=== PATIENT | female | born 1940 | race Caucasian/White ===

== ENCOUNTER 2016-11-12 22:16 | Emergency (ER) | payer MEDICARE, OTHER ==
[~2016-11-12] VITALS: Ht 160 cm; Wt 91.6 kg
[~2016-11-12 22:16] MED LIST: ALPHAGAN P5 ML OPTH; AMLODIPINE BESYL5 MG PO; CATAPRES-TTS 31 EACH TOP; DEXILANT60 MG PO; FUROSEMIDE40 MG PO; GABAPENTIN100 MG PO; K-TAB ER20 MEQ PO; LOTENSIN40 MG PO; METFORMIN HCL500 MG PO; METOPROLOL TAR100 MG PO; MIRAPEX1 MG PO; NORCO 5-325 TA1 EACH PO; PANTOPRAZOLE SO40 MG PO; PROVENTIL HFA6.7 GM INH; SPIRIVA18 MCG INH; VITAMIN D5000 UNIT PO; XOPENEX HFA15 GM INH
--- NOTE | 2016-11-13 19:12 | EKG ---
[facility] [address] [place], [place] [address] Signed Normal sinus rhythm Normal ECG When compared with ECG of 16-SEP-2016 19:19, No significant change was found Confirmed by CLARI WOOTEN MD ([id number]) on 11/13/2016 7:12:27 PM Electronically Signed By: CLARI WOOTEN MD 11/13/161911 PATIENT NAME: DAVID GUTIERREZ Electrocardiogram DATE OF : 42 PHYSICIAN: CLARI WOOTEN MD REPORT #: [id number] REPORT IS CONFIDENTIAL AND NOT TO BE RELEASED WITHOUT AUTHORIZATION
== END 2016-11-13 00:46 | disposition home or self-care (01) ==
LOC: ED 22:16
DX: R06.00 Dyspnea, unspecified (principal); R51 Headache; I10 Essential (primary) hypertension; J44.9 Chronic obstructive pulmonary disease, unspecified; E11.9 Type 2 diabetes mellitus without complications; Z85.3 Personal history of malignant neoplasm of breast; Z87.891 Personal history of nicotine dependence; Z90.13 Acquired absence of bilateral breasts and nipples; Z90.710 Acquired absence of both cervix and uterus; Z90.49 Acquired absence of other specified parts of digestive tract; Z88.8 Allergy status to other drugs, medicaments and biological substances; Z79.899 Other long term (current) drug therapy; Z79.84 Long term (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 of oral hypoglycemic drugs
CPT/HCPCS: 70450; 71020; 80053; 82550; 82553; 83874; 83880; 84484; 85025; 93005; 93010; 99284

== ENCOUNTER 2018-07-06 01:47 | Emergency (ER) | payer MEDICARE, OTHER ==
[~2018-07-06] VITALS: Ht 160 cm; Wt 91.6 kg
--- OUTSIDE RECORDS SUMMARY | ~2018-07-06 | XMS | Encounter Summary ---
Demographics + + + | Address | [address] | | | [place] [address] | + + + | Home Phone | | + + + | Preferred Language | Unknown | + + + | Marital Status | | + + + | Christianity Affiliation | Unknown | + + + | Race | Unknown | + + + | Ethnic Group | Unknown | + + + Author + + + | Author | [facility] | | | and [place] | + + + | Organization | [facility] | | | and [place] | + + + | Address | Unknown | + + + | Phone | Unavailable | + + + Support + + +---------+ + | Name | Relationship | Address | Phone | + + +---------+ + | Adriane Kuhn | MYCHAL | Unknown | | + + +---------+ + Care Team Providers + +------+ + | Care Photovoltaic Panel Installer Name | Role | Phone | + +------+ + | Yuri Miner MD | PCP | | + +------+ + Reason for Visit + + + | Reason | Comments | + + + | Follow-up | Urge Incontinence and OAB | + + + Encounter Details +--------+---------+ + + + | Date | Type | Department | Care Team | Description | +--------+---------+ + + + | 05/01/ | Office | [facility] | Arnol Koroma | OAB (overactive | | 2019 | Visit | [address] | MD Bryant [address] | bladder) (Primary | | | | [place], [place] | [place], [place] | Dx); Urgency of | | | | [address] | [address] | urination; Nocturia | | | | [phone] | | | +--------+---------+ + + + Social History + + + +--------+ + | Tobacco Use | Types | Packs/Day | Years | Date | | | | | Used | | + + + +--------+ + | Former Smoker | Cigarettes | 1 | 14 | 02/21/1958 - | | | | | | 02/22/1972 | + + + +--------+ + + +---+---+---+ | Smokeless Tobacco: | | | | | Never Used | | | | + +---+---+---+ + + +---------+ + | Alcohol Use | Drinks/We | oz/Week | Comments | | | ek | | | + + +---------+ + | No | 0 | 0.0 | | | | Standard | | | | | drinks or | | | | | | | | | | equivalen | | | | | t | | | + + +---------+ + + + + | Sex Assigned at | Date Recorded | | | | + + + | Not on file | | + + + + + + + | Job Start Date | Occupation | Industry | + + + + | Not on file | Not on file | Not on file | + + + + + + + + | Travel History | Travel Start | Travel End | + + + + + + | No recent travel history available. | + + documented as of this encounter Last Filed Vital Signs + + + + | Vital Sign | Reading | Time Taken | + + + + | Blood Pressure | 112/60 | 05/01/2018 1320 PDT | + + + + | Pulse | 60 | 05/01/20181319 PDT | + + + + | Temperature | - | - | + + + + | Respiratory Rate | 16 | 05/01/20181319 PDT | + + + + | Oxygen Saturation | - | - | + + + + | Inhaled Oxygen | - | - | | Concentration | | | + + + + | Weight | 92.2 kg (203 lb 4.2 | 05/01/20181319 PDT | | | oz) | | + + + + | Height | 162.6 cm (5' 4") | 05/01/2018 1320 PDT | + + + + | Body Mass Index | 34.89 | 05/01/2018 1320 PDT | + + + + documented in this encounter Functional Status + + + + | Functional Status | Response | Date of Assessment | + + + + | Are you deaf or do you have serious | No | 02/15/2018 | | difficulty hearing? | | | + + + + | Are you blind or do you have serious | No | 02/15/2018 | | difficulty seeing, even when wearing | | | | glasses? | | | + + + + | Do you have serious difficulty walking or | No | 02/15/2018 | | climbing stairs? (5 years old or older) | | | + + + + | Do you have difficulty dressing or bathing? | No | 02/15/2018 | | (5 years old or older) | | | + + + + | Because of a physical, mental, or emotional | No | 02/15/2018 | | condition, do you have difficulty doing | | | | errands alone such as visiting a doctor's | | | | office or shopping? [15 years old or | | | | older)] | | | + + + + + + + + | Cognitive Status | Response | Date of Assessment | + + + + | Because of a physical, mental, or emotional | No | 02/15/2018 | | condition, do you have serious difficulty | | | | concentrating, remembering, or making | | | | decisions? (5 years old or older) | | | + + + + documented as of this encounter Progress Notes Arnol Koroma MD - 05/01/2018 1330 PDT Chief Complaint Patient presents with Follow-up Urge Incontinence and OAB HPI Izzy Novoa is a 77 y.o. female patient of Yuri Miner MD here today for a follow u p for overactive bladder and urge incontinence. Urgency and frequency and urge incontinence. Not leaking, nocturia 1-2 per night, minimal urgency NO dysuria, no gross hematuria, no voiding difficulties Also reports LE edema Minimal dry mouth Assessment Izzy was seen today for follow-up. Diagnoses and all orders for this visit: OAB (overactive bladder) Urgency of urination Nocturia Plan Has cut out caffeine and thinks that maybe she does not need the oxybutynin. Patient can experiment with the oxybutynin. She can stop for a period of time and if her s ymptoms worsen she can restart. I advised the patient to discuss her lower extremity edema with her primary care provider. Patient does have recent lab work indicating Normal kidney function. Past Medical History Past Medical History: Diagnosis Date Adverse effect of anesthesia slow to wake up, confusion after hernia repair Bunion of great toe of left foot Cancer (HCC) Chronic bilateral low back pain with bilateral sciatica Chronic kidney disease Constipation COPD (chronic obstructive pulmonary disease) ([facility]) 2012 KELLEY (dyspnea on exertion) DVT (deep venous thrombosis) ([facility]) 2014, 2016 On coumadin Essential hypertension Family history of cardiovascular disease Fatigue Fibromyalgia 1981 Full dentures GERD (gastroesophageal reflux disease) Glaucoma, bilateral Hammer toe of left foot History of breast cancer 1999 treated with bilateral mastectomies History of cervical cancer 1985 History of hernia repair History of lumbosacral spine surgery History of melanoma excision arm Insomnia Obesity YOVANNY on CPAP uses CPAP Osteoarthritis of multiple joints, unspecified osteoarthritis type Peripheral edema Peripheral neuropathy Pneumonia 1989 Restless legs Sciatica Type 2 diabetes mellitus with kidney complication ([facility]) Past Surgical History Past Surgical History: Procedure Laterality Date APPENDECTOMY 1970 BACK SURGERY 1981,1989 BLADDER SURGERY 2009 BLADDER SUSPENSION 2014 BLEPHAROSPASM BREAST RECONSTRUCTION Bilateral COLONOSCOPY N/A 09/17/2016 Procedure: COLONOSCOPY; Surgeon: Yuri Pizano MD; Location: [facility] MEDICAL PROCEDURE UNIT HERNIA REPAIR 2012 HYSTERECTOMY 1986 LUMBAR SPINE SURGERY 1991 x5;[place] OR LUMBAR SPINE SURGERY N/A 06/27/2017 Procedure: L3-4 Lateral Anterior Interbody Fusion; Surgeon: Justino Garcia DO; Location : [facility] MAIN OR MASTECTOMY MASTECTOMY, MODIFIED RADICAL 2000 Cancer MYRINGOTOMY Bilateral NASAL SEPTUM SURGERY Bilateral 04/26/2017 Procedure: Septoplasty, Inferior Turbinoplasty; Surgeon: Talon Moran MD; Location: [facility] MAIN OR SKIN CANCER EXCISION Melanoma SKIN CANCER EXCISION STOMACH SURGERY 2009 GIOVANNY AND BSO 1978 Cancer TONSILLECTOMY AND ADENOIDECTOMY 1970 TYMPANOSTOMY TUBE PLACEMENT Bilateral UPPER GASTROINTESTINAL ENDOSCOPY N/A 09/17/2016 Procedure: EGD; Surgeon: Yuri Pizano MD; Location: [facility] MEDICAL PROCEDURE UNIT UPPER GASTROINTESTINAL ENDOSCOPY N/A 07/27/2017 Procedure: EGD; Surgeon: Juanito Fisher MD; Location: [facility] MEDICAL PROCEDURE UNIT Family History: Family History Problem Relation Age of Onset Heart disease Father Cancer Father prostate Hypertension Father Arthritis Father Heart disease Mother Kidney disease Mother Heart disease Sister Diabetes Sister Other (see comment) Sister lung problems Hypertension Sister Diabetes Brother Hypertension Brother Arthritis Brother Arthritis Brother Hypertension Brother Diabetes Brother No Known Problems Daughter Diabetes Paternal Grandfather Heart disease Paternal Grandfather Diabetes Paternal Grandmother Heart disease Paternal Grandmother Alcohol abuse Maternal Grandfather Heart disease Maternal Grandmother Heart attack Other FAMILY HISTORY Heart disease Brother Diabetes Brother Arthritis Brother No Known Problems Child No Known Problems Child Hypertension Sister Arthritis Sister Social History: Social History Social History Marital status: Spouse name: N/A Number of children: 3 Years of education: N/A Occupational History RETIRED Social History Main Topics Smoking status: Former Smoker Packs/day: 1.00 Years: 14.00 Types: Cigarettes Start date: 02/21/1958 Quit date: 02/22/1972 Smokeless tobacco: Never Used Alcohol use No Drug use: Yes Frequency: 1.0 time per week Types: Marijuana Comment: 5 drops daily Sexual activity: Not Currently Other Topics Concern None Social History Narrative None Allergies Allergen Reactions Cimetidine Other (See Comments) Tagamet: dizzy Other reaction(s): Other (See Comments) Tagamet: dizzy Tagamet: dizzy Clonidine Other (See Comments) Too much clonidine makes pt have headaches Other reaction(s): Other (See Comments) Too much clonidine makes pt have headaches Sensitivity - Pt has a Clonidine Patch on changes weekly. Too much clonidine makes pt have headaches Tolerates Catapres (brand name) patches Medications: Current Outpatient Prescriptions: acetaminophen (TYLENOL) 500 mg tablet, Take 1,000 mg by mouth., Disp: , Rfl: albuterol 2.5 mg/3 mL nebulizer solution, inhale contents of 1 vial in nebulizer every 6 hours if needed for wheezing, Disp: , Rfl: 0 albuterol 90 mcg/puff inhaler, Inhale 2 puffs into the lungs every 4 hours as needed f or Shortness of Breath., Disp: 1 Inhaler, Rfl: 5 ergocalciferol (VITAMIN D-2) 50,000 units capsule, Take 50,000 Units by mouth Once a w [place]., Disp: , Rfl: furosemide (LASIX) 40 mg tablet, Take 40 mg by mouth Daily., Disp: , Rfl: Lancets Misc. KIT, Use to test blood sugar twice daily. E11.22, Disp: , Rfl: latanoprost (XALATAN) 0.005% ophthalmic solution, place 1 drop into both eyes at bedti me, Disp: , Rfl: 0 lisinopril (PRINIVIL,ZESTRIL) 40 MG tablet, Take 40 mg by mouth Daily., Disp: , Rfl: metFORMIN (GLUCOPHAGE) 500 mg tablet, Take 500 mg by mouth daily (with breakfast)., Di sp: , Rfl: metoprolol tartrate (LOPRESSOR) 50 mg tablet, Take 1/2 tablet (25 mg) orally 2 times d aily, Disp: , Rfl: omeprazole (PRILOSEC) 20 mg capsule, Take 20 mg by mouth every morning (before break)., Disp: , Rfl: ONE TOUCH ULTRA TEST strip, TEST twice a day, Disp: , Rfl: 0 ONETOUCH DELICA LANCETS 33G MISC, TEST twice a day, Disp: , Rfl: 0 oxybutynin (DITROPAN XL) 15 MG 24 hr tablet, Take 1 tablet by mouth Daily. (Patient ta kirill differently: Take 10 mg by mouth Daily.), Disp: 30 tablet, Rfl: 5 potassium chloride (KLOR-CON M20) 20 mEq ER tablet, Take 20 mEq by mouth 2 times daily ., Disp: , Rfl: pramipexole (MIRAPEX) 1 MG tablet, Take 1 tablet by mouth nightly., Disp: 30 tablet, R fl: 1 rivaroxaban (XARELTO) 20 mg tablet, Take 20 mg by mouth Daily., Disp: , Rfl: tiotropium (SPIRIVA RESPIMAT) 2.5 mcg/puff inhaler, inhale 2 puffs by mouth once daily , Disp: , Rfl: ROS Gen: no fever or chills : no dysuria, no gross hematuria Head: no hallucinations, no blurry vision Objective BP 112/60 | Pulse 60 | Resp 16 | Ht 1.626 m (5' 4") | Wt 92.2 kg (203 lb 4.2 oz) | BMI 34.89 kg/m General Appearance: Alert, cooperative, no distress, appears stated age Head: Normocephalic, without obvious abnormality, atraumatic Eyes: conjunctiva/corneas clear, EOM's intact Throat: Lips, mucosa, and tongue normal; mmm Lungs: Regular, unlabored breathing MS No CVA tenderness, no spinal tenderness, no scoliosis present Abdomen: Soft, non-tender, no masses Extremities: Extremities normal, atraumatic, no cyanosis, clubbing, 1+ edema of the Neurologic: Slow unsteady gait, CN 2-12 grossly intact; Strength and sensation grossly norm al in bilateral upper and lower extremities Data: Results for orders placed or performed in visit on 04/28/18 Ferritin Result Value Ref Range FERRITIN 9 (L) 11 - 307 ng/mL Renal Function Panel Result Value Ref Range Na 137 136 - 145 mmol/L K 3.9 3.4 - 5.1 mmol/L Cl 98 98 - 107 mmol/L CO2 29 20 - 31 mmol/L Anion Gap 10 3 - 16 mmol/L Glucose 110 (H) 60 - 106 mg/dL BUN 17 9 - 23 mg/dL Creatinine 1.06 (H) 0.55 - 1.02 mg/dL eGFR if not 50 (L) >=60 mL/min/1.73m2 Ca 9.9 8.7 - 10.4 mg/dL Albumin 4.6 3.2 - 4.8 g/dL Phosphorus 4.0 2.4 - 5.1 mg/dL BUN/Creatinine Ratio 16.0 Vitamin D, Deficiency Screen (25-Hydroxy) Result Value Ref Range Vitamin D, 25 Hydroxy 73 30 - 100 ng/mL Parathyroid Hormone, Intact Result Value Ref Range PTH Intact 92 (H) 19 - 88 pg/mL Lab Results Component Value Date CREA 1.06 (H) 04/28/2018 Yuri Miner MD's notes were reviewed in clinic today. Return in about 6 months (around 11/01/2018).. CC: Yuri Miner MD documented in thi s encounter Plan of Treatment +--------+ + + + + | Date | Type | Specialty | Care Team | Description | +--------+ + + + + | 07/12/ | Office | Orthopedic Surgery | BarbaraArnol richardson | | | 2018 | Visit | | [address] | | | | | | [address] | | | | | | [place] [address] | | | | | | [phone] | | | | | | | | +--------+ + + + + | 07/20/ | Office | Sleep Medicine | Leighton Conde PA | | | 2018 | Visit | | [address] | | | | | | [place] | | | | | | [address] | | | | | | | | +--------+ + + + + | 09/04/ | Office | Pulmonology | Ariel Patiño, | | | 2018 | Visit | | MD [address] | | | | | | [place] | | | | | | [address] | | | | | | | | +--------+ + + + + | 10/19/ | Procedure | Physical Medicine | Talon Moran, | | | 2019 | visit | and Rehabilitation | MD Michael Michelle | | | | | | [place] | | | | | | [address] | | | | | | | | +--------+ + + + + | 11/01/ | Office | Urology | Arnol Koroma | | | 2018 | Visit | | MD Johnny [address] | | | | | | [place] | | | | | | [address] | | | | | | | | +--------+ + + + + documented as of this encounter Visit Diagnoses + + | Diagnosis | + + | OAB (overactive bladder) - Primary Hypertonicity of bladder | + + | Urgency of urination | + + | Nocturia | + + documented in this encounter
--- OUTSIDE RECORDS SUMMARY | ~2018-07-06 | XMS | Encounter Summary ---
Demographics + + + | Address | [address] | | | [place] [address] | + + + | Home Phone | | + + + | Preferred Language | Unknown | + + + | Marital Status | | + + + | Catholic Affiliation | Unknown | + + + | Race | Unknown | + + + | Ethnic Group | Unknown | + + + Author + + + | Author | [facility] | | | and [place] | + + + | Organization | [facility] | | | and [...] Team Providers + +------+ + | Care A Operator Name | Role | Phone | + [...] + + | 05/01/ | Office | [facility] | Arnol Koroma | OAB (overactive | | 2019 | Visit | [address] | MD Bryant [address] | bladder) (Primary | | | | [place], [place] | [place], [place] | Dx); Urgency of | | | | [address] | [address] | urination; Nocturia | | | | [phone] | | | +--------+---------+ + + + [...] disease Constipation COPD (chronic obstructive pulmonary disease) ([facility]) 2012 KELLEY (dyspnea on exertion) DVT (deep venous thrombosis) ([facility]) 2014, 2016 On coumadin Essential hypertension Family [...] Type 2 diabetes mellitus with kidney complication ([facility]) Past Surgical History Past Surgical History: Procedure Laterality Date APPENDECTOMY 1970 BACK SURGERY 1981,1989 BLADDER SURGERY 2009 BLADDER SUSPENSION 2014 BLEPHAROSPASM BREAST RECONSTRUCTION Bilateral COLONOSCOPY N/A 09/17/2016 Procedure: COLONOSCOPY; Surgeon: Yuri Pizano MD; Location: [facility] MEDICAL PROCEDURE UNIT HERNIA REPAIR 2012 HYSTERECTOMY 1986 LUMBAR SPINE SURGERY 1991 x5;[place] LUMBAR SPINE SURGERY N/A 06/27/2017 Procedure: L3-4 Lateral Anterior Interbody Fusion; Surgeon: Justino Garcia DO; Location : [facility] MAIN OR MASTECTOMY MASTECTOMY, MODIFIED RADICAL 2000 Cancer MYRINGOTOMY Bilateral NASAL SEPTUM SURGERY Bilateral 04/26/2017 Procedure: Septoplasty, Inferior Turbinoplasty; Surgeon: Talon Moran MD; Location: [facility] MAIN OR SKIN CANCER EXCISION Melanoma SKIN CANCER EXCISION STOMACH SURGERY 2009 GIOVANNY AND BSO 1978 Cancer TONSILLECTOMY AND ADENOIDECTOMY 1970 TYMPANOSTOMY TUBE PLACEMENT Bilateral UPPER GASTROINTESTINAL ENDOSCOPY N/A 09/17/2016 Procedure: EGD; Surgeon: Yuri Pizano MD; Location: [facility] MEDICAL PROCEDURE UNIT UPPER GASTROINTESTINAL ENDOSCOPY N/A 07/27/2017 Procedure: EGD; Surgeon: Juanito Fisher MD; Location: [facility] MEDICAL PROCEDURE UNIT Family History: Family [...] 50,000 Units by mouth Once a w [place]., Disp: , Rfl: furosemide (LASIX) 40 mg [...] | | | | | [place] [address] | | | | | | [phone] | | | | | | | | +--------+ + + + + | 07/20/ | Office | Sleep Medicine | Leighton Conde PA | | | 2018 | Visit | | [address] | | | | | | [place] | | | | | | [address] | | | | | | | | +--------+ + + + + | 09/04/ | Office | Pulmonology | Ariel Patiño, | | | 2018 | Visit | | MD [address] | | | | | | [place] | | | | | | [address] | | | | | | | | +--------+ + + + + | 10/19/ | Procedure | Physical Medicine | Talon Moran, | | | 2019 | visit | and Rehabilitation | MD Michael Michelle | | | | | | [place] | | | | | | [address] | | | | | | | | +--------+ + + + + | 11/01/ | Office | Urology | Arnol Koroma | | | 2018 | Visit | | MD Johnny Hurtado | | | | | | [place] | | | | | | [address] | | | | | | | | +--------+ + + + + documented as of this encounter Visit Diagnoses + + | Diagnosis | + + | OAB (overactive bladder) - Primary Hypertonicity of bladder | + + | Urgency of urination | + + | Nocturia | + + documented in this encounter
--- OUTSIDE RECORDS SUMMARY | ~2018-07-06 | XMS | Clinical Summary ---
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 | Izzy Novoa performed on May 10, 2018. Clinical Information: | | | Izzy Novoa is a 77 y.o. female who underwent nocturnal | | | polysomnography using a "Split-Night" Protocol on May 10, 2018 on | | | referral from Dr. Miner because of a past history of obstructive sleep | | | apnea in a patient who is poorly adherent with positive airway | | | pressure therapy. Technical Information: Please see technical data | | | which is attached.. Definitions (The AASM Manual for the Scoring of | | | Sleep and Associated Events, Version 2.5; 2018): Apnea:There is a drop | | | in the peak signal excursion by 90% or greater of pre-event baseline | | | using an oronasal thermal sensor (diagnostic study), PAP device flow | | | (titration study), or an alternative apnea sensor (diagnostic study); | | | the duration of the 90% or greater drop in sensor signal is 10 seconds | | | or longer. Obstructive Apnea: Event associated with continued or | | | increased inspiratory effort throughout the entire period of absent | | | airflow. Central Apnea: Event associated with absent inspiratory | | | effort throughout the entire period of absent airflow. Mixed Apnea: | | | Event associated with absent inspiratory effort in the initial | | | portion of the event followed by resumption of inspiratory effort | | | during the second portion of the event. Hypopnea: The peak signal | | | excursions drop by greater than or equal to 30% of pre-event baseline | | | using a recommended or alternative airflow sensor and the duration of | | | the >= 30% drop in signal excursion is greater than or equal to 10 | | | seconds and there is a greater than or equal to a 4% oxygen | | | desaturation from pre-event baseline. Respiratory Event Related | | | Arousal: A sequence of breaths lasting 10 seconds or longer | | | characterized by increasing respiratory effort or by flattening of the | | | inspiratory portion of the nasal pressure (diagnostic study) or PAP | | | device flow (titration study) waveform leading to arousal from sleep | | | when the sequence of breaths does not meet criteria for an apnea or | | | hypopnea. The study was conducted in two parts. The first 135.5 | | | minutes of study time was spent as a diagnostic study and the second | | | 280 minutes was spent with the patient undergoing positive airway | | | titration. DIAGNOSTIC PORTION OF THE EVENINGSleep | | | Architecture: Lights out was recorded at 2245 hundred hours on | | | May 10, 2018 and lights on was recorded at 0541 hundred hours on | | | May 11, 2018. The latency to sleep onset was short at 2.5 minutes. | | | The patient slept for 101 minutes out of 135.5 minutes of diagnostic | | | study time resulting an a sleep efficiency that was low at 74.5 | | | %. The following were the percentages of the various sleep stages | | | recorded during the diagnostic portion of the evening: N1 15.8%, N2 | | | 67.8%, N3 3.5%, and REM 12.9. Sleep was severely fragmented; the | | | Arousal Index was 70.1 during the diagnostic portion of the evening. | | | Sleep in the following body positions were recorded during the | | | diagnostic portion of the evening: Left lateral decubitus, right | | | lateral decubitus, supine. Cardiopulmonary Monitoring: During the | | | diagnostic portion of the evening, the heart rate averaged in the | | | upper 70s to lower 80s beats per minute. Moderate rate variability | | | was noted. The rhythm was sinus. During the diagnostic portion of the | | | evening, there were 4 obstructive apneas, 0 mixed apneas, 0 central | | | apneas, 89 hypopneas, and 33 Respiratory Effort Related Arousals | | | (RERA's). The Respiratory Disturbance Index (RDI) was elevated at | | | 74.9; the Apnea-Hypopnea Index was elevated at 55.2; the Apnea Index | | | (AI) was 2.4. The respiratory events were not significantly sleep | | | stage dependent. The respiratory events were not significantly | | | positional. The jennifer oxygen saturation was 71% and the patient spent | | | 9 minutes with an oxygen saturation of less than or equal to 90%. | | | ETCO2 was not significantly elevated. Limb Movement Monitoring: There | | | were 0 Periodic Limb Movements (PLMS Index of 0) of which 0 were | | | associated with arousals; the PLMS Arousal Index was normal at 0 | | | during the diagnostic portion of the evening. The night technologist | | | at this point appropriately made a diagnosis of Obstructive Sleep | | | Apnea. The patient was awakened and positive airway pressure was | | | instituted. TREATMENT PORTION OF THE EVENING: During the 280 minutes | | | of treatment time, the patient slept for 224.5 minutes for a sleep | | | efficiency of 80.2 which was somewhat improved compared to the sleep | | | efficiency seen during the diagnostic portion of the night. Sleep | | | architecture improved compared to the sleep architecture during the | | | diagnostic portion of the evening. The sleep efficiency was better | | | and sleep fragmentation was less. The patient was titrated to Positive | | | Airway Pressure of 11cm although obstructive sleep apnea and oxygen | | | desaturation was actually well controlled with CPAP pressures of 7 cm | | | to 11 cm. The patient did require a small Elvia View Full Face | | | Mask. Cardiopulmonary Monitoring: During the treatment portion of the | | | evening, the heart rate averaged in the low 70s beats per minute. | | | Mild to moderate rate variability was noted. The rhythm was sinus | | | Limb Movement Monitoring: There were 29 Periodic Limb Movements (PLMS | | | Index of 7.8) of which 13 were associated with arousals; the PLMS | | | Arousal Index was normal at 3.5 during the treatment portion of the | | | evening. Interpretation: This Split-Night Polysomnogram is abnormal | | | secondary to: Severe obstructive sleep apnea is diagnosed. This is | | | associated with severe oxygen desaturation as well as sleep | | | fragmentation.CPAP in the 7-11 cm range appears to be required for | | | control of obstructive breathing. Suggestions:1. The principles of | | | sleep hygiene should be reviewed with the patient.2. Auto titrating | | | CPAP 7-15 cm is advised with close careful clinical follow-up Jimmy | | | Bryce Olivera Jr., MD, [facility]'SMedical DirectorEncompass Health Rehabilitation Hospital Sleep | | | [facility] Center[facility], | | | WAClinical Custodial Laborer of [facility]Davis [facility] | | | [place], [place] | | |The night technologist at this point appropriately made a | | |diagnosis of Obstructive Sleep Apnea. The patient was awakened | | |and positive airway pressure was instituted. | | | | | |TREATMENT PORTION OF THE EVENING: | | | | | |During the 280 minutes of treatment time, the patient slept for | | |224.5 minutes for a sleep efficiency of 80.2 which was somewhat | | |improved compared to the sleep efficiency seen during the | | |diagnostic portion of the night. Sleep architecture improved | | |compared to the sleep architecture during the diagnostic portion | | |of the evening. The sleep efficiency was better and sleep | | |fragmentation was less. | | | | | |The patient was titrated to Positive Airway Pressure of 11cm | | |although obstructive sleep apnea and oxygen desaturation was | | |actually well controlled with CPAP pressures of 7 cm to 11 cm. | | |The patient did require a small Elvia View Full Face Mask. | | | | | |Cardiopulmonary Monitoring: During the treatment portion of the | | |evening, the heart rate averaged in the low 70s beats per minute. | | | Mild to moderate rate variability was noted. The rhythm was | | |sinus | | | | | | | | |Limb Movement Monitoring: There were 29 Periodic Limb Movements | | |(PLMS Index of 7.8) of which 13 were associated with arousals; | | |the PLMS Arousal Index was normal at 3.5 during the treatment | | |portion of the evening. | | | | | |Interpretation: This Split-Night Polysomnogram is abnormal | | |secondary to: | | | | | |Severe obstructive sleep apnea is diagnosed. This is associated | | |with severe oxygen desaturation as well as sleep fragmentation. | | |CPAP in the 7-11 cm range appears to be required for control of | | |obstructive breathing. | | | | | |Suggestions: | | |1. The principles of sleep hygiene should be reviewed with the | | |patient. | | |2. Auto titrating CPAP 7-15 cm is advised with close careful | | |clinical follow-up | | | | | |Jimmy Olivera Jr., MD, [facility] | | |Sales Service Technician | | |[facility] | | |[facility] | | |[place], [place] | | |Clinical tractor trailer truck driver | | |[facility] | | |[place], [place] | | + + + + + | Procedure Note | + + | Jimmy Olivera Jr., MD - 05/22/2018 0933 [facility] | | [place], [place] [id number] | | Polysomnogram/Positive Airway Pressure Titration Report on Izzy Novoa performed on | | May 10, 2018.Clinical Information: Izzy Novoa is a 77 y.o. female who underwent | | nocturnal polysomnography using a "Split-Night" Protocol on May 10, 2018 on referral | | from Dr. Miner because of a past history of obstructive sleep apnea in a patient who is | | poorly adherent with positive airway pressure therapy.Technical Information: Please see | | technical data which is attached..Definitions (The AASM Manual for the Scoring of Sleep | | and Associated Events, Version 2.5; 2018): Apnea:There is a drop in the peak signal | | excursion by 90% or greater of pre-event baseline using an oronasal thermal sensor | | (diagnostic study), PAP device flow (titration study), or an alternative apnea sensor | | (diagnostic study); the duration of the 90% or greater drop in sensor signal is 10 | | seconds or longer. Obstructive Apnea: Event associated with continued or increased | | inspiratory effort throughout the entire period of absent airflow. Central Apnea: Event | | associated with absent inspiratory effort throughout the entire period of absent | | airflow. Mixed Apnea: Event associated with absent inspiratory effort in the initial | | portion of the event followed by resumption of inspiratory effort during the second | | portion of the event. Hypopnea: The peak signal excursions drop by greater than or equal | | to 30% of pre-event baseline using a recommended or alternative airflow sensor and the | | duration of the >= 30% drop in signal excursion is greater than or equal to 10 seconds | | and there is a greater than or equal to a 4% oxygen desaturation from pre-event | | baseline. Respiratory Event Related Arousal: A sequence of breaths lasting 10 seconds or | | longer characterized by increasing respiratory effort or by flattening of the | | inspiratory portion of the nasal pressure (diagnostic study) or PAP device flow | | (titration study) waveform leading to arousal from sleep when the sequence of breaths | | does not meet criteria for an apnea or hypopnea.The study was conducted in two parts. | | The first 135.5 minutes of study time was spent as a diagnostic study and the second | | 280 minutes was spent with the patient undergoing positive airway titration.DIAGNOSTIC | | PORTION OF THE EVENINGSleep Architecture: Lights out was recorded at 2245 hundred hours | | on May 10, 2018 and lights on was recorded at 0541 hundred hours on May 11, 2018. | | The latency to sleep onset was short at 2.5 minutes. The patient slept for 101 minutes | | out of 135.5 minutes of diagnostic study time resulting an a sleep efficiency that was | | low at 74.5 %. The following were the percentages of the various sleep stages recorded | | during the diagnostic portion of the evening: N1 15.8%, N2 67.8%, N3 3.5%, and REM 12.9. | | Sleep was severely fragmented; the Arousal Index was 70.1 during the diagnostic portion | | of the evening.Sleep in the following body positions were recorded during the | | diagnostic portion of the evening: Left lateral decubitus, right lateral decubitus, | | supine.Cardiopulmonary Monitoring: During the diagnostic portion of the evening, the | | heart rate averaged in the upper 70s to lower 80s beats per minute. Moderate rate | | variability was noted. The rhythm was sinus.During the diagnostic portion of the | | evening, there were 4 obstructive apneas, 0 mixed apneas, 0 central apneas, 89 | | hypopneas, and 33 Respiratory Effort Related Arousals (RERA's). The Respiratory | | Disturbance Index (RDI) was elevated at 74.9; the Apnea-Hypopnea Index was elevated at | | 55.2; the Apnea Index (AI) was 2.4. The respiratory events were not significantly sleep | | stage dependent. The respiratory events were not significantly positional. The jennifer | | oxygen saturation was 71% and the patient spent 9 minutes with an oxygen saturation of | | less than or equal to 90%.ETCO2 was not significantly elevated.Limb Movement Monitoring: | | There were 0 Periodic Limb Movements (PLMS Index of 0) of which 0 were associated with | | arousals; the PLMS Arousal Index was normal at 0 during the diagnostic portion of the | | evening.The night technologist at this point appropriately made a diagnosis of | | Obstructive Sleep Apnea. The patient was awakened and positive airway pressure was | | instituted.TREATMENT PORTION OF THE EVENING:During the 280 minutes of treatment time, | | the patient slept for 224.5 minutes for a sleep efficiency of 80.2 which was somewhat | | improved compared to the sleep efficiency seen during the diagnostic portion of the | | night. Sleep architecture improved compared to the sleep architecture during the | | diagnostic portion of the evening. The sleep efficiency was better and sleep | | fragmentation was less.The patient was titrated to Positive Airway Pressure of 11cm | | although obstructive sleep apnea and oxygen desaturation was actually well controlled | | with CPAP pressures of 7 cm to 11 cm. The patient did require a small Elvia View Full | | Face Mask.Cardiopulmonary Monitoring: During the treatment portion of the evening, the | | heart rate averaged in the low 70s beats per minute. Mild to moderate rate variability | | was noted. The rhythm was sinusLimb Movement Monitoring: There were 29 Periodic Limb | | Movements (PLMS Index of 7.8) of which 13 were associated with arousals; the PLMS | | Arousal Index was normal at 3.5 during the treatment portion of the | | evening.Interpretation: This Split-Night Polysomnogram is abnormal secondary to:Severe | | obstructive sleep apnea is diagnosed. This is associated with severe oxygen | | desaturation as well as sleep fragmentation.CPAP in the 7-11 cm range appears to be | | required for control of obstructive breathing.Suggestions:1. The principles of sleep | | hygiene should be reviewed with the patient.2. Auto titrating CPAP 7-15 cm is advised | | with close careful clinical follow-Shital Olivera Jr., MD, FAASMMedical | | [facility] | | [place] Custodial Laborer of Medicine[facility] | | [place], [place] | |Clinical tractor trailer truck driver | |[facility] | |[place], [place] | + + Vitamin D, Deficiency Screen (25-Hydroxy) (04/28/2018 11:43 PST) + +-------+ + + + | Component | Value | Ref Range | Performed | Pathologist | | | | | At | Signature | + +-------+ + + + | Vitamin D, | 73 | 30 - 100 ng/mL | [facility] | | | 25 Hydroxy | | | [facility] | | | | | | MEDICAL | | | | | | CENTER - | | | | | | LABORATORY | | + +-------+ + + + + + | Specimen | + + | Blood | + + + + + + + | Performing | Address | City/State/Zipcode | Phone Number | | Organization | | | | + + + + + | [facility] | [address] | [place] | [phone] | | [facility] | | [address] | | | - LABORATORY | | | | + + + + + Parathyroid Hormone, Intact (04/28/2018 11:43 PST) + +--------+ + + + | Component | Value | Ref Range | Performed | Pathologist | | | | | At | Signature | + +--------+ + + + | PTH Intact | 92 (H) | 19 - 88 pg/mL | [facility] | | | | | | [facility] | | | | | | MEDICAL | | | | | | CENTER - | | | | | | LABORATORY | | + +--------+ + + + + + | Specimen | + + | Blood | + + + + + + + | Performing | Address | City/State/Zipcode | Phone Number | | Organization | | | | + + + + + | [facility] | [address] | [place] | [phone] | | [facility] | | [address] | | | - LABORATORY | | | | + + + + + Ferritin (04/28/2018 11:43 PST) + +-------+ + + + | Component | Value | Ref Range | Performed | Pathologist | | | | | At | Signature | + +-------+ + + + | FERRITIN | 9 (L) | 11 - 307 ng/mL | [facility] | | | | | | [facility] | | | | | | [facility] | | | | | | CENTER - | | | | | | LABORATORY | | + +-------+ + + + + + | Specimen | + + | Blood | + + + + + + + | Performing | Address | City/State/Zipcode | Phone Number | | Organization | | | | + + + + + | [facility] | [address] | [place] | [phone] | | [facility] | | [address] | | | - LABORATORY | | | | + + + + + Renal Function Panel (04/28/2018 11:43 PST) + + + + + + | Component | Value | Ref Range | Performed | Pathologist | | | | | At | Signature | + + + + + + | Na | 137 | 136 - 145 | [facility] | | | | | mmol/L | [facility] | | | | | | MEDICAL | | | | | | CENTER - | | | | | | LABORATORY | | + + + + + + | K | 3.9 | 3.4 - 5.1 | [facility] | | | | | mmol/L | [facility] | | | | | | MEDICAL | | | | | | CENTER - | | | | | | LABORATORY | | + + + + + + | Cl | 98 | 98 - 107 mmol/L | [facility] | | | | | | [facility] | | | | | | MEDICAL | | | | | | CENTER - | | | | | | LABORATORY | | + + + + + + | CO2 | 29 | 20 - 31 mmol/L | [facility] | | | | | | [facility] | | | | | | MEDICAL | | | | | | CENTER - | | | | | | LABORATORY | | + + + + + + | Anion Gap | 10 | 3 - 16 mmol/L | [facility] | | | | | | [facility] | | | | | | MEDICAL | | | | | | CENTER - | | | | | | LABORATORY | | + + + + + + | Glucose | 110 (H) | 60 - 106 mg/dL | [facility] | | | | | | [facility] | | | | | | MEDICAL | | | | | | CENTER - | | | | | | LABORATORY | | + + + + + + | BUN | 17 | 9 - 23 mg/dL | [facility] | | | | | | [facility] | | | | | | MEDICAL | | | | | | CENTER - | | | | | | LABORATORY | | + + + + + + | Creatinine | 1.06 (H) | 0.55 - 1.02 | [facility] | | | | | mg/dL | [facility] | | | | | | MEDICAL | | | | | | CENTER - | | | | | | LABORATORY | | + + + + + + | eGFR if not | 50 (L) | >=60 | [facility] | | | | | mL/min/1.73m2 | [facility] | | [facility] | | | | | | CENTER - | | | | | | LABORATORY | | + + + + + + | Ca | 9.9 | 8.7 - 10.4 | [facility] | | | | | mg/dL | [facility] | | | | | | MEDICAL | | | | | | CENTER - | | | | | | LABORATORY | | + + + + + + | Albumin | 4.6 | 3.2 - 4.8 g/dL | [facility] | | | | | | [facility] | | | | | | [facility] | | | | | | CENTER - | | | | | | LABORATORY | | + + + + + + | Phosphorus | 4.0 | 2.4 - 5.1 mg/dL | [facility] | | | | | | [facility] | | | | | | MEDICAL | | | | | | CENTER - | | | | | | LABORATORY | | + + + + + + | BUN/Creatin | 16.0 | | [facility] | | | ine Ratio | | | [facility] | | | | | | MEDICAL | | | | | | CENTER - | | | | | | LABORATORY | | + + + + + + + + | Specimen | + + | Blood | + + + + + + + | Performing | Address | City/State/Zipcode | Phone Number | | Organization | | | | + + + + + | [facility] | [address] | [place] | [phone] | | [facility] | | [address] | | | - LABORATORY | | | | + + + + + from Last 3 Months Insurance + +--------+ +--------+ +---------+--------+ | Payer | Benefi | Subscriber | Effect | Phone | Address | Type | | | t Plan | ID | kamial | | | | | | / | | Dates | | | | | | Group | | | | | | + +--------+ +--------+ +---------+--------+ | MEDICARE | MEDICA | [id number] | 06/22/19 | [phone] | | Medica | | | RE | | 07-Pre | 5 | | re | | | PART A | | sent | | | | | | AND B | | | | | | + +--------+ +--------+ +---------+--------+ | [employer] | NW | [id number] | 02/21/19 | | | Indemn | | | IRONWO | 1 | 17-Pre | | | ity | | | RKERS | | sent | | | | | | MDCR | | | | | | | | SUPPL | | | | | | + +--------+ +--------+ +---------+--------+ + +--------+ +--------+ + + | Guarantor Name | Accoun | Relation to | Date | Phone | Billing Address | | | t Type | Patient | of | | | | | | | | | | + +--------+ +--------+ + + | Izzy Novoa | Person | Self [birth year] | [address] | | | al/Fam | | 1941 | [phone] | [place] [address] | | | stew | | | 9 (Home) | | + +--------+ +--------+ + + Advance Directives Patient has advance care planning documents, and code status on file. For more information, please contact:[facility] [place] [id number] + + + + + | Code Status | Date | Date | Comments | | | Activated | Inactivated | | + + + + + | Full Code | 02/14/2018 | 02/15/2018 | | | | 4:43 | 19:28 | | + + + + + + + + +---+ | | | | | + + + +---+ | Full Code | 07/26/2017 | 07/28/2017 | | | | 23:10 | 14:40 | | + + + +---+ + + + +---+ | | | | | + + + +---+ | Full Code | 06/27/2017 | 06/30/2017 | | | | 18:10 | 18:37 | | + + + +---+ + + + +---+ | | | | | + + + +---+ | Full Code | 04/26/2017 | 04/26/2017 | | | | 16:25 | 19:19 | | + + + +---+ + + + +---+ | | | | | + + + +---+ | Full Code | 04/03/2017 | 04/06/2017 | | | | 6:25 | 20:59 | | + + + +---+
--- OUTSIDE RECORDS SUMMARY | ~2018-07-06 | XMS | Encounter Summary ---
Demographics + + + | Address | [address] | | | [place] [address] | + + + | Home Phone | | + + + | Preferred Language | Unknown | + + + | Marital Status | | + + + | Yazidi Affiliation | Unknown | + + + | Race | Unknown | + + + | Ethnic Group | Unknown | + + + Author + + + | Author | [facility] | | | and [place] | + + + | Organization | [facility] | | | and [...] Team Providers + +------+ + | Care Medical Records Clerk Name | Role | Phone | + +------+ + | Yuri Miner MD | PCP | | + +------+ + Reason for Visit + + + | Reason | Comments | + + + | Imaging Only | | + + + Encounter Details +--------+ + + + + | Date | Type | Department | Care Team | Description | +--------+ + + + + | 07/03/ | Telephone | [facility] [place] | Toni Knapp, | Imaging Only | | 2018 | | NEUROSURGERY [address] | PA-C [address] | | | | | [address] | [address] [place] | | | | | [place], [place] | [place] [address] | | | | | [address] | [phone] | | | | | [phone] | | | +--------+ + + + + Social History + [...] + + documented as of this encounter Functional Status + + + [...] + + documented as of this encounter Plan of Treatment +--------+ + + + + | Date | Type | Specialty | Care Team | Description | +--------+ + + + + | 07/12/ | Office | Orthopedic Surgery | Arnol Jimenez | | | 2018 | Visit | | [address] | | | | | | [address] | | | | | | [place] [address] | | | | | | [phone] | | | | | | | | +--------+ + + + + | 07/20/ | Office | Sleep Medicine | Leighton Conde PA | | | 2018 | Visit | | [address] | | | | | | [place] | | | | | | [address] | | | | | | | | +--------+ + + + + | 09/04/ | Office | Pulmonology | Ariel Patiño, | | | 2018 | Visit | | [address] | | | | | | [place] | | | | | | [address] | | | | | | | | +--------+ + + + + | 10/19/ | Procedure | Physical Medicine | Talon Moran, | | | 2018 | visit | and Rehabilitation | [address] | | | | | | [place] | | | | | | [address] | | | | | | | | +--------+ + + + + | 11/01/ | Office | Urology | Arnol Koroma | | | 2019 | Visit | | [facility] [address] | | | | | | [place] | | | | | | [address] | | | | | | | | +--------+ + + + + documented as of this encounter Visit Diagnoses Not on filedocumented in this encounter"
--- OUTSIDE RECORDS SUMMARY | ~2018-07-06 | XMS | Encounter Summary ---
Demographics + + + | Address | [address] | | | [place] [address] | + + + | Home Phone | | + + + | Preferred Language | Unknown | + + + | Marital Status | Single | + + + | Mosque Affiliation | PRO | + + + | Race | White | + + + | Ethnic Group | Not or | + + + Author + + + | Author | [facility] | + + + | Organization | [facility] | + + + | Address | Unknown | + + + | Phone | Unavailable | + + + Care Team Providers + +------+ + | Care Outreach Analyst Name | Role | Phone | + +------+ + PCP | Unavailable | + +------+ + Encounter Details +--------+ + + + + | Date | Type | Department | Care Team | Description | +--------+ + + + + | 11/01/ | Hospital | Dermatopathology | | | | 2017 | Encounter | [address] | | | | | | Mail Code: CH16D | | | | | | [facility] | | | | | | and Healing, 5th | | | | | | floor [place], [place] | | | | | | [address] | | | | | | [phone] | | | +--------+ + + + + Social History + +-------+ +--------+------+ | Tobacco Use | Types | Packs/Day | Years | Date | | | | | Used | | + +-------+ +--------+------+ | Never Assessed | | | | | + +-------+ +--------+------+ + + + | Sex Assigned at [...] as of this encounter Plan of Treatment Not on filedocumented as of this encounter Procedures + +--------+ + + + | Procedure Name | Priori | Date/Time | Associated Diagnosis | Comments | | | ty | | | | + +--------+ + + + | DERM PATHOLOGY | Routin | 11/01/2016 | Basal cell | Results for this | | | e | | carcinoma of skin of | procedure are in the | | | | | right ear and | results section. | | | | | external auricular | | | | | | canal Basal cell | | | | | | carcinoma of skin of | | | | | | nose | | + +--------+ + + + documented in this encounter Results DERM PATHOLOGY (11/01/2016) + + + + + + | Component | Value | Ref Range | Performed | Pathologist | | | | | At | Signature | + + + + + + | DERMATOPATH | SOURCE OF SPECIMEN:A Rt | | [facility] | | | OLOGY(WET | anterior floyd of helix, | | DERMATOPATH | | | MNT) | shave biopsySOURCE OF | | OLOGY | | | | SPECIMEN:B Rt nose, | | | | | | shave biopsy | | | | | | CLINICAL DESCRIPTION:A: | | | | | | 7 x 8 eryth & brown | | | | | | shiny semi-firm papule; | | | | | | r/o BCC.B: 4 x 3 mm | | | | | | eryth oquendo | | | | | | semi-translucent papule; | | | | | | r/o BCC. GROSS | | | | | | DESCRIPTION:Received in | | | | | | formalin are two | | | | | | specimens labeled Prock, | | | | | | Izzy:A: Specimen is | | | | | | labeled "R anterior | | | | | | crura helix" and | | | | | | consists of anirregular | | | | | | shave of papular patchy | | | | | | oquendo-brown skin, [id number]. | | | | | | The surgicalmargin is | | | | | | inked blue; the tissue | | | | | | is bisected, and | | | | | | entirely submitted | | | | | | incassette A1.B: | | | | | | Specimen is labeled "R | | | | | | nose" and consists of an | | | | | | irregular shave | | | | | | ofpapular patchy | | | | | | hnadh-lwm-mwoqf skin, | | | | | | [id number]. The surgical | | | | | | margin is inkedblue; the | | | | | | tissue is bisected, and | | | | | | entirely submitted in | | | | | | cassette B1. | | | | | | MICROSCOPIC | | | | | | DESCRIPTION:In the A and | | | | | | B specimens there are | | | | | | aggregates of cells with | | | | | | hyperchromaticnuclei, | | | | | | scant cytoplasm and | | | | | | palisading of the | | | | | | peripheral | | | | | | nuclei. | | | | | | DIAGNOSIS:A: BASAL CELL | | | | | | CARCINOMA, | | | | | | NODULAR. NOTE: | | | | | | The basal cell carcinoma | | | | | | extends to the surgical | | | | | | margins. B: | | | | | | BASAL CELL CARCINOMA, | | | | | | NODULAR. NOTE: | | | | | | The basal cell carcinoma | | | | | | extends to the specimen | | | | | | base. | | | | | | KPW:jb11/03/16 My | | | | | | electronic signature | | | | | | indicates that I have | | | | | | personally reviewed | | | | | | alldiagnostic slides, | | | | | | the gross and/or | | | | | | microscopic portion of | | | | | | thisreport and | | | | | | formulated the final | | | | | | diagnosis. 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
--- OUTSIDE RECORDS SUMMARY | ~2018-07-06 | XMS | Clinical Summary ---
Demographics + + + | Address | [address] | | | [place] [address] | + + + | Home Phone | | + + + | Preferred Language | Unknown | + + + | Marital Status | Single | + + + | Temple Affiliation | PRO | + + + | Race | White | + + + | Ethnic Group | Not or | + + + Author + + + | Author | [facility] | + + + | Organization | [facility] | + + + | Address | Unknown | + + + | Phone | Unavailable | + + + Care Team Providers + +------+ + | Care Cad Manager Name | Role | Phone | + +------+ + PP | Unavailable | + +------+ + Source Comments [facility] is fully live on both [facility] Ambulatory and [facility] InPatient.[facility] Allergies Not on File Medications Not on file Active Problems Not on file Social History + +-------+ +--------+------+ | Tobacco [...] recent travel history available. | + + Plan of Treatment + + + + + | Health Maintenance | Due Date | Last Done | Comments | + + + + + | Pneumococcal (Adult) | | | | | (1 of 2 - PCV13) | 7 | | | + + + + + | Influenza (Flu) | | | | | vaccination (Season | 9 | | | | Ended) | | | | + + + + + Results Not on filefrom Last 3 Months Insurance + +--------+ +--------+ + +--------+ | Payer | Benefi | Subscriber | Effect | Phone | Address | Type | | | t Plan | ID | kamila | | | | | | / | | Dates | | | | | | Group | | | | | | + +--------+ +--------+ + +--------+ | MEDICARE | MEDICA | xxxxxxxxxx | Effect | [phone] | [address] | Medica | | | RE A & | | kamila | [phone] | [address] | | | [address] | | for | | [place], [place] | | | | | | all | | [phone] | | | | | | dates | | | | + +--------+ +--------+ + +--------+ | COMMERCIAL | INDIVI | [id number] | Effect | | | Indemn | | INDIVIDUAL | DUAL | | kamila | | | ity | | | COMMER | | for | | | | | | CIAL | | all | | | | | | | | dates | | | | + +--------+ +--------+ + +--------+ + +--------+ +--------+ + + | Guarantor Name | Accoun | Relation to | Date | Phone | Billing Address | | | t Type | Patient | of | | | | | | | | | | + +--------+ +--------+ + + | DAVID GUTIERREZ | Person | Other | [birth year] | [address] | | | al/Fam | | 1941 | [phone] | [place] | | | stew | | | 9 (Home) | [address] | + +--------+ +--------+ + +"
--- OUTSIDE RECORDS SUMMARY | ~2018-07-06 | XMS | Encounter Summary ---
Demographics + + + | Address | [address] | | | [place] [address] | + + + | Home Phone | | + + + | Preferred Language | Unknown | + + + | Marital Status | | + + + | Roman Catholic Affiliation | Unknown | + + + | Race | Unknown | + + + | Ethnic Group | Unknown | + + + Author + + + | Author | [facility] | | | and [place] | + + + | Organization | [facility] | | | [...] Team Providers + +------+ + | Care Carpentry Instructor Name | Role | Phone | + +------+ + | Yuri Miner MD | PCP | | + +------+ + Reason for Visit + + + | Reason | Comments | + + + | CPAP Follow Up | Sleep Resource | + + + Encounter Details +--------+ + + + + | Date | Type | Department | Care Team | Description | +--------+ + + + + | 06/05/ | Clinical | [facility] | Jimmy Olivera | YOVANNY (obstructive | | 2019 | Support | SLEEP DISORDER [address] | [address] | sleep apnea) | | | | [address] [place] | [address] [place] | (Primary Dx) | | | | [place] [address] | [place] [address] | | | | | [phone] | [phone] | | | | | | | [...] + + + | Blood Pressure | 120/58 | 06/05/2018 1400 PDT | + + + + | Pulse | 99 | 06/05/2018 1400 PDT | + + + + | Temperature | - | - | + + + + | Respiratory Rate | 20 | 06/05/2018 1400 PDT | + + + + | Oxygen Saturation | 94% | 06/05/2018 1400 PDT | + + + + | Inhaled Oxygen | - | - | | Concentration | | | + + + + | Weight | 94.6 kg (208 lb 8.9 | 06/05/2018 1400 PDT | | | oz) | | + + + + | Height | 162.6 cm (5' 4") | 06/05/2018 1400 PDT | + + + + | Body Mass Index | 35.8 | 06/05/2018 1400 PDT | + + + + documented [...] documented as of this encounter Progress Notes Priyank Montemayor, Neurodiagnostic Tech - 06/05/2018 1400 PDT Clinical Sleep Support Visit Patient:Izzy Novoa Date of :1940 Encounter Date: 06/05/2018 Reason for visit: Chief Complaint Patient presents with CPAP Follow Up Sleep Resource Patient was last seen in our clinic on 05/22/[address] Olivera, referred to us by Dr. Miner . PAP was ordered on 05/22/2018 from [facility]. Patient has been using PAP for 13 out of 13 nights, wearing the ResMed S-10 auto PAP with settings of 7 to 15, wearing the Elvia mask. ~ Vital signs were: BP 120/58 | Pulse 99 | Resp 20 | Ht 1.626 m (5' 4") | Wt 94.6 kg (2 08 lb 8.9 oz) | SpO2 94% | BMI 35.80 kg/m ~ Patient is doing poor with toleration- she is taking the mask off in her sleep and not we aring it during her 3-4 time a week naps. She is a prior user (since 2014) and has worn it o n several occasions since for up to 1 year at a time (6 months ago most recent). Arrived to day with a cold and claims she is mouth breathing more often now, mask fit was okay after sh e self adjusted, application and fit test went well after. I reviewed her study in detail an d she does seem motivated to continue use. ~ Overall leak is 36 ~ Compliance >4 hours =46% with AHI of 1 ~ Average daily usage of 3:47 Original date of study was on 05/10/2018 that showed an AHI of 55.2 with a O2 Jerzy of 71% w ith 9 minutes < 90%. Sleep hygiene reviewed with the patient included a review of her study, all PAP instruction s for use including mask fit, and cleaning with a reminder to wear PAP at all times during s [facility] Plan for continuous PAP use: 1. Wear PAP any time you are sleeping 2. Continue with PAP indefinitely 3. Follow up with Leighton MCGUIRE in 4 weeks with equipment Priyank Montemayor RPSGT CSE docume nted in this encounter Plan of Treatment +--------+ + [...] | | | | | [place] [address] | | | | | | [phone] | | | | | | | | +--------+ + + + + | 07/20/ | Office | Sleep Medicine | Leighton Conde PA | | | 2018 | Visit | | [address] | | | | | | [place] | | | | | | [address] | | | | | | | | +--------+ + + + + | 09/04/ | Office | Pulmonology | Ariel Patiño, | | | 2018 | Visit | | MD [address] | | | | | | [place] | | | | | | [address] | | | | | | | | +--------+ + + + + | 10/19/ | Procedure | Physical Medicine | Talon Moran, | | | 2018 | visit | and Rehabilitation | [address] | | | | | | [place] | | | | | | [address] | | | | | | | | +--------+ + + + + | 11/01/ | Office | Urology | Arnol Koroma | | | 2019 | Visit | | MD Johnny Hurtado | | | | | | [address] | | | | | | [address] | | | | | | | | +--------+ + + + + documented as of this encounter Visit Diagnoses + + | Diagnosis | + + | YOVANNY (obstructive sleep apnea) - Primary Obstructive sleep apnea (adult) (pediatric) | + + documented in this encounter
--- OUTSIDE RECORDS SUMMARY | ~2018-07-06 | XMS | Encounter Summary ---
Demographics + + + | Address | [address] | | | [place] [address] | + + + | Home Phone | | + + + | Preferred Language | Unknown | + + + | Marital Status | | + + + | Faith Affiliation | Unknown | + + + | Race | Unknown | + + + | Ethnic Group | Unknown | + + + Author + + + | Author | [facility] | | | and [place] | + + + | Organization | [facility] | | | [...] Team Providers + +------+ + | Care Fishing Guide Name | Role | Phone | + +------+ + | Yuri Miner MD | PCP | | + +------+ + Reason for Visit Evaluate & Treat (Routine) +--------+ + + + + + | Status | Reason | Specialty | Diagnoses / | Referred By | Referred To | | | | | Procedures | Contact | Contact | +--------+ + + + + + | Closed | Specialty | Sleep | Diagnoses | Jarod | [facility] | | | Services | Medicine | History of | Jimmy Chin | [place] [address] | | | Required | | iron | MD [address] | | | | | deficiency | [address] | [place], | | | | | YOVANNY | [address] [place] | [place] [address] | | | | | (obstructive | [place], [place] | Phone: | | | | | sleep | [address] | [phone] | | | | | apnea) | Phone: | Fax: | | | | | Periodic | [phone] | [phone] | | | | | limb | Fax: | | | | | | movements of | [phone] | | | | | | sleep | | | | | | | Procedures | | | | | | | RI POLYSOM | | | | | | | 6/>YRS SLEEP | | | | | | | W/CPAP 4/> | | | | | | | ADDL PINKY | | | | | | | ATTND RI | | | | | | | POLYSOM | | | | | | | 6/>YRS SLEEP | | | | | | | 4/> ADDL | | | | | | | PINKY ATTND | | | | | | | S/N | | | +--------+ + + + + + Encounter Details +--------+ + + + + | Date | Type | Department | Care Team | Description | +--------+ + + + + | 05/10/ | [facility] | [facility] | Jimmy Olivera | YOVANNY on CPAP; Iron | | 2019 - | Encounter | MED CTR SLEEP | MD [address] | deficiency; Periodic | | | | CENTER [address] | [address] [facility] | limb movements of | | 05/11/ | | [place], [place] | [place] [address] | sleep; YOVANNY | | 2019 | | [address] | [phone] | (obstructive sleep | | | | [phone] | | apnea); Periodic | | | | | | limb movement | | | | | | disorder | +--------+ + + + + Social [...] + + documented as of this encounter Medications at Time of Discharge + + + +---------+ + + | Medication | Sig | Dispensed | Refills | Start | End Date | | | | | | Date | | + + + +---------+ + + | albuterol 2.5 mg/3 | inhale contents of 1 | | 0 | 11/17/19 | | | mL nebulizer | vial in nebulizer | | | 18 | | | solution | every 6 hours if | | | | | | | needed for wheezing | | | | | + + + +---------+ + + | albuterol 90 | Inhale 2 puffs into | 1 | 5 | 09/13/19 | | | mcg/puff | the lungs every 4 | Inhaler | | 18 | | | inhalerIndications: | hours as needed for | | | | | | COPD, moderate (HCC) | Shortness of Breath. | | | | | + + + +---------+ + + | ergocalciferol | Take 50,000 Units by | | 0 | | | | (VITAMIN D-2) 50,000 | mouth Once a week. | | | | | | units capsule | | | | | | + + + +---------+ + + | furosemide (LASIX) | Take 40 mg by mouth | | 0 | 02/03/20 | | | 40 mg tablet | Daily. | | | 17 | | + + + +---------+ + + | guaiFENesin | Take 100 mg by mouth | | 0 | 11/17/19 | | | (TUSSIN) 100 mg/5 mL | 3 Times daily as | | | 18 | | | syrup | needed. | | | | | + + + +---------+ + + | Lancets Misc. KIT | Use to test blood | | 0 | 10/20/19 | | | | sugar twice daily. | | | 18 | | | | E11.22 | | | | | + + + +---------+ + + | latanoprost | place 1 drop into | | 0 | 09/17/19 | | | (XALATAN) 0.005% | both eyes at bedtime | | | 18 | | | ophthalmic solution | | | | | | + + + +---------+ + + | metFORMIN | Take 500 mg by mouth | | 0 | | | | (GLUCOPHAGE) 500 mg | daily (with | | | | | | tablet | breakfast). | | | | | + + + +---------+ + + | metoprolol | Take 1/2 tablet (25 | | 0 | 08/10/19 | | | tartrate (LOPRESSOR) | mg) orally 2 times | | | 18 | | | 50 mg tablet | daily | | | | | + + + +---------+ + + | omeprazole | Take 20 mg by mouth | | 0 | | | | (PRILOSEC) 20 mg | every morning | | | | | | capsule | (before breakfast). | | | | | + + + +---------+ + + | ONE TOUCH ULTRA | TEST twice a day | | 0 | 10/20/19 | | | TEST strip | | | | 18 | | + + + +---------+ + + | ONETOCORINA LUTHER | TEST twice a day | | 0 | 10/20/19 | | | LANCETS 33G MISC | | | | 18 | | + + + +---------+ + + | oxybutynin | Take 1 tablet by | 30 | 5 | 07/27/19 | | | (DITROPAN XL) 15 MG | mouth Daily. | tablet | | 18 | 9 | | 24 hr tablet | | | | | | + + + +---------+ + + | potassium chloride | Take 20 mEq by mouth | | 0 | | | | (KLOR-CON M20) 20 | 2 times daily. | | | | | | mEq ER tablet | | | | | | + + + +---------+ + + | pramipexole | Take 1 tablet by | 30 | 1 | 04/06/19 | | | (MIRAPEX) 1 MG | mouth nightly. | tablet | | 18 | | | tablet | | | | | | + + + +---------+ + + | rivaroxaban | Take 20 mg by mouth | | 0 | | | | (XARELTO) 20 mg | Daily. | | | | | | tablet | | | | | | + + + +---------+ + + | tiotropium | inhale 2 puffs by | | 0 | 10/05/19 | | | (SPIRIVA RESPIMAT) | mouth once daily | | | 17 | | | 2.5 mcg/puff inhaler | | | | | | + + + +---------+ + + | travoprost | 1 drop. | | 0 | 01/07/20 | | | (TRAVATAN Z) 0.004% | | | | 17 | | | ophthalmic solution | | | | | | + + + +---------+ + + | acetaminophen | Take 1,000 mg by | | 0 | | | | (TYLENOL) 500 mg | mouth. | | | | 9 | | tablet | | | | | | + + + +---------+ + + | lisinopril | Take 40 mg by mouth | | 0 | | | | (PRINIVIL,ZESTRIL) | Daily. | | | | 9 | | 40 MG tablet | | | | | | + + + +---------+ + + documented as of this encounter [...] | | | | | [place] [address] | | | | | | [phone] | | | | | | | | +--------+ + + + + | 07/20/ | Office | Sleep Medicine | Leighton Conde PA | | | 2018 | Visit | | [address] | | | | | | [place] | | | | | | [address] | | | | | | | | +--------+ + + + + | 09/04/ | Office | Pulmonology | Ariel Patiño, | | | 2018 | Visit | | MD [address] | | | | | | [place] | | | | | | [address] | | | | | | | | +--------+ + + + + | 10/19/ | Procedure | Physical Medicine | Talon Moran, | | | 2018 | visit | and Rehabilitation | MD [address] | | | | | | [place] | | | | | | [address] | | | | | | | | +--------+ + + + + | 11/01/ | Office | Urology | Arnol Koroma | | | 2018 | Visit | | MD Johnny [address]urt[address] | | | | | | [place] | | | | | | [address] | | | | | | | | +--------+ + + + + documented as of this encounter Procedures + +--------+ [...] section. | + +--------+ + + + documented in this encounter Results Sleep study routine (split night protocol) (05/22/2018 9:33 PDT) + + + | Narrative | Performed At | + + + | Jimmy Chin | | | Jarod Wayne MD 05/22/2018 9:41 [facility] | | | [place] [address] | | | Split-Night Polysomnogram/Positive Airway Pressure [...] | | | Bryce Olivera Jr., MD, FAASMMedical DirectorConnersville [facility] | | | Disorders CenterProForks [facility], | | | [place] Architect [facility] MedicineUniversity [facility] | | | [place], [place] | | |The night technologist at [...] | | | |Jimmy Olivera Jr., MD, [facility] | | |Epic Application Coordinator | | |[facility] | | |[facility] | | |[place] | | |Clinical warehouse lead | | |Merged with [facility] | | |[place] | | + + + + + | Procedure Note | + + | Jimmy Olivera Jr., MD - 05/22/2018 0933 PDT [facility] | | Disorders [place], [place] [address]C[facility]v | | Polysomnogram/Positive Airway Pressure Titration Report [...] follow-Shital Olivera Jr., MD, FAASMMedical | | [facility] Sleep Disorders [facility] | | [place] [employer] Architect of MedicineUniversity [facility] Hospital | | [place], [place] | |Clinical warehouse lead | |Merged with [facility] | |[place], [place] | + + documented in this encounter Visit Diagnoses + + | Diagnosis | + + | YOVANNY on CPAP Obstructive sleep apnea (adult) (pediatric) | + + | Iron deficiency Other disorders of iron metabolism | + + | Periodic limb movements of sleep Periodic limb movement disorder | + + | YOVANNY (obstructive sleep apnea) Obstructive sleep apnea (adult) (pediatric) | + + | Periodic limb movement disorder | + + documented in this encounter
--- OUTSIDE RECORDS SUMMARY | ~2018-07-06 | XMS | Encounter Summary ---
Demographics + + + | Address | [address] | | | [place] [address] | + + + | Home Phone | | + + + | Preferred Language | Unknown | + + + | Marital Status | | + + + | Holiness Affiliation | Unknown | + + + | Race | Unknown | + + + | Ethnic Group | Unknown | + + + Author + + + | Author | [facility] | | | and [place] | + + + | Organization | [facility] | | | and [...] Team Providers + +------+ + | Care Template Layout Worker Name | Role | Phone | + +------+ + | Yuri Miner MD | PCP | | + +------+ + Reason for Visit + + + | Reason | Comments | + + + | Nephrology | | | Appointment | | + + + Encounter Details +--------+ + + + + | Date | Type | Department | Care Team | Description | +--------+ + + + + | 04/12/ | Telephone | [facility] | Basil, | Nephrology | | 2019 | | NEPHROLOGY [address] | [address] [address] | Appointment | | | | [address] | [address], [place] | | | | | [place], [place] | [address] [place] | | | | | [address] | [address] | | | | | [phone] | | | +--------+ + + + [...] | | | | | [place] [address] | | | | | | [phone] | | | | | | | | +--------+ + + + + | 07/20/ | Office | Sleep Medicine | Leighton Conde PA | | | 2018 | Visit | | [address] | | | | | | [place] | | | | | | [address] | | | | | | | | +--------+ + + + + | 09/04/ | Office | Pulmonology | Ariel Patiño, | | | 2018 | Visit | | MD [address] | | | | | | [place] | | | | | | [address] | | | | | | | | +--------+ + + + + | 10/19/ | Procedure | Physical Medicine | Talon Moran, | | | 2018 | visit | and Rehabilitation | [address] | | | | | | [place] | | | | | | [address] | | | | | | | | +--------+ + + + + | 11/01/ | Office | Urology | Arnol Koroma | | | 2019 | Visit | | MD Johnny [address]urt[address] | | | | | | [place] | | | | | | [address] | | | | | | | | +--------+ + + + + documented as of this encounter Visit Diagnoses Not on filedocumented in this encounter"
--- OUTSIDE RECORDS SUMMARY | ~2018-07-06 | XMS | Encounter Summary ---
Demographics + + + | Address | [address] | | | [place] [address] | + + + | Home Phone | | + + + | Preferred Language | Unknown | + + + | Marital Status | Single | + + + | Uatsdin Affiliation | PRO | + + + | Race | White | + + + | Ethnic Group | Not or | + + + Author + + + | Author | [facility] | + + + | Organization | [facility] | + + + | Address | Unknown | + + + | Phone | Unavailable | + + + Care Team Providers + +------+ + | Care Axle And Frame Mechanic Name | Role | Phone | + [...] [id number] | | | | | | [facility] | | | | | | and Healing, 5th | | | | | | floor [place], [place] | | | | | | [address] | | | | | | [phone] | | | +--------+ + + + [...] | | | | | oquendo-brown skin, [id number]. | | | | | | The [...] patchy | | | | | | [id number] skin, | | | | | | [id number]. The surgical | | | | | [...] + + | [facility] | [address], [address] | [place] [address] | | | DERMATOPATHOLOGY | [address] [...]
--- OUTSIDE RECORDS SUMMARY | ~2018-07-06 | XMS | Encounter Summary ---
Demographics + + + | Address | [address] | | | [place] [address] | + + + | Home Phone | | + + + | Preferred Language | Unknown | + + + | Marital Status | | + + + | Holiness Affiliation | Unknown | + + + | Race | Unknown | + + + | Ethnic Group | Unknown | + + + Author + + + | Author | [facility] | | | and [place] | + + + | Organization | [facility] | | | and [...] Team Providers + +------+ + | Care Emu Farmer Name | Role | Phone | + +------+ + | Yuri Miner MD | PCP | | + +------+ + Reason for Visit + + + | Reason | Comments | + + + | Knee Pain | bilateral knee pain ONSET 2 YEARS | + + + | New Patient | estabsanjuanaish care with Arnol jimenez | + + + Evaluate & Treat (Routine) +--------+ + + + + + | Status | Reason | Specialty | Diagnoses / | Referred By | Referred To | | | | | Procedures | Contact | Contact | +--------+ + + + + + | Closed | Specialty | Orthopedic | Diagnoses | [place], | [facility] | | Services | Surgery | Bilateral | Talon Quarles MD | Orthopedic | | | Required | | chronic knee | [address] | | | | | pain | [address] | [facility] | | | | | Primary | [place], | [place], | | | | | osteoarthrit | [place] [address] | [place] | | | | | is of both | Phone: | [phone] | | | | | knees | [phone] | Phone: | | | | | | Fax: | [phone] | | | | | | [phone] | Fax: | | | | | | | [phone] | +--------+ + + + + + Encounter Details +--------+---------+ + + + | Date | Type | Department | Care Team | Description | +--------+---------+ + + + | 07/03/ | Office | [facility] | Talon Moran, | Primary | | 2018 | Visit | ORTHOPEDIC SURGERY | [address] [facility] | osteoarthritis of | | | | [address] | [place], [place] | right knee (Primary | | | | [place], [place] | [address] | Dx); Primary | | | | [address] | | osteoarthritis of | | | | [phone] | Arnol Jimenez | left knee; Chronic | | | | | [address] | pain of both knees | | | | | [address] [facility] | | | | | | [place] [address] | | | | | | [phone] | | | | | | | | +--------+---------+ + + + [...] + + + | Blood Pressure | - | - | + + + + | Pulse | - | - | + + + + | Temperature | - | - | + + + + | Respiratory Rate | - | - | + + + + | Oxygen Saturation | - | - | + + + + | Inhaled Oxygen | - | - | | Concentration | | | + + + + | Weight | 94.3 kg (208 lb) | 07/03/2018 1358 PDT | + + + + | Height | 162.6 cm (5' 4") | 07/03/20181357 PDT | + + + + | Body Mass Index | 35.7 | 07/03/20181357 PDT | + + + + documented [...] as of this encounter Progress Notes Arnol Jimenez PA-C - 07/03/2018 1400 PDTFormatting of this note might be different f rom the original. ORTHOPEDICS [address] [place] [id number] FAX: [phone] Name: Izzy Novoa : 1940 Age: 77 y.o. Todays Date: 07/04/2018 Primary Care Provider: Yuri Miner MD Chief Complaint Patient presents with Knee Pain bilateral knee pain ONSET 2 YEARS New Patient establlish care with Arnol jimenez History of Present Illness: Izzy Novoa is a new patient that presents with chronic bilateral knee pain that has be en present for well over the past 10 years but she now professes that it has been worse over the past 2 years. Describes that both knees are bad and goes back and forth as to which on e is worse. Describes pain occurs throughout both knees. Pain always increases with any de gree of ambulation, weightbearing getting up and down from a seated position. Describes hellen t she cannot go up stairs. Pain is relieved with rest, modification of activity, nonweightb earing, Tylenol as needed and multiple courses of injection therapy. She professes that she is probably had over 3 to 4 injections in about 1 years timeframe. Her most recent injecti on was about 2 weeks ago by physiatry provider Dr. Mickey Moran. She notes that this injecti on is still giving her some relief but is wearing off. Current level of pain is rated at 3. She is modifying her activities of daily living secondary to this pain. Past Medical History: Diagnosis Date Adverse effect of anesthesia slow to wake up, confusion after hernia repair Bunion of great toe of left foot Cancer ([facility]) Chronic bilateral low back pain with bilateral sciatica Chronic kidney disease Constipation COPD (chronic obstructive pulmonary disease) ([facility]) 2012 KELLEY (dyspnea on exertion) DVT (deep venous thrombosis) ([facility]) 2014, 2016 On coumadin Essential hypertension Family [...] Type 2 diabetes mellitus with kidney complication ([facility]) Past Surgical History: Procedure Laterality Date APPENDECTOMY 1971 BACK SURGERY 1981,1989 BLADDER SURGERY 2009 BLADDER SUSPENSION 2014 BLEPHAROSPASM BREAST RECONSTRUCTION Bilateral COLONOSCOPY N/A 09/17/2016 Procedure: COLONOSCOPY; Surgeon: Yuri Pizano MD; Location: [facility] MEDICAL PROCEDURE UNIT HERNIA REPAIR 2013 HYSTERECTOMY 1987 LUMBAR SPINE SURGERY 1991 x5;[facility] OR LUMBAR SPINE SURGERY N/A 06/27/2017 Procedure: L3-4 Lateral Anterior Interbody Fusion; Surgeon: Justino Garcia DO; Location : [facility] MAIN OR MASTECTOMY MASTECTOMY, MODIFIED RADICAL 2000 Cancer MYRINGOTOMY Bilateral NASAL SEPTUM SURGERY Bilateral 04/26/2017 Procedure: Septoplasty, Inferior Turbinoplasty; Surgeon: Talon Moran MD; Location: [facility] MAIN OR SKIN CANCER EXCISION Melanoma SKIN CANCER EXCISION STOMACH SURGERY 2009 GIOVANNY AND BSO 1978 Cancer TONSILLECTOMY AND ADENOIDECTOMY 1970 TYMPANOSTOMY TUBE PLACEMENT Bilateral UPPER GASTROINTESTINAL ENDOSCOPY N/A 09/17/2016 Procedure: EGD; Surgeon: Yuri Pizano MD; Location: [facility] MEDICAL PROCEDURE UNIT UPPER GASTROINTESTINAL ENDOSCOPY N/A 07/27/2017 Procedure: EGD; Surgeon: Juanito Fisher MD; Location: [facility] MEDICAL PROCEDURE UNIT Allergies Allergen Reactions Cimetidine Other (See Comments) Tagamet: dizzy Other reaction(s): Other (See Comments) Tagamet: dizzy Tagamet: dizzy Clonidine Other (See Comments) Too much clonidine makes pt have headaches Other reaction(s): Other (See Comments) Too much clonidine makes pt have headaches Sensitivity - Pt has a Clonidine Patch on changes weekly. Too much clonidine makes pt have headaches Tolerates Catapres (brand name) patches Current Outpatient Medications Medication Sig Dispense Refill acetaminophen (TYLENOL) 500 mg tablet Take 1,000 mg by mouth Every 6 hours as needed. albuterol 2.5 mg/3 mL nebulizer solution inhale contents of 1 vial in nebulizer every 6 hours if needed for wheezing 0 albuterol 90 mcg/puff inhaler Inhale 2 puffs into the lungs every 4 hours as needed for Shortness of Breath. 1 Inhaler 5 ergocalciferol (VITAMIN D-2) 50,000 units capsule Take 50,000 Units by mouth Once a wee k. furosemide (LASIX) 40 mg tablet Take 40 mg by mouth Daily. guaiFENesin (TUSSIN) 100 mg/5 mL syrup Take 100 mg by mouth 3 Times daily as needed. Lancets Misc. KIT Use to test blood sugar twice daily. E11.22 latanoprost (XALATAN) 0.005% ophthalmic solution place 1 drop into both eyes at bedtime 0 losartan (COZAAR) 50 mg tablet take 1 tablet by mouth daily 1 metFORMIN (GLUCOPHAGE) 500 mg tablet Take 500 mg by mouth daily (with breakfast). metoprolol tartrate (LOPRESSOR) 50 mg tablet Take 1/2 tablet (25 mg) orally 2 times ede ly omeprazole (PRILOSEC) 20 mg capsule Take 20 mg by mouth every morning (before breakfast ). ONE TOUCH ULTRA TEST strip TEST twice a day 0 ONETOUCH DELICA LANCETS 33G MISC TEST twice a day 0 oxybutynin (DITROPAN XL) 15 MG 24 hr tablet Take 1 tablet by mouth Daily. (Patient gurwinder norris differently: Take 10 mg by mouth Daily.) 30 tablet 5 potassium chloride (KLOR-CON M20) 20 mEq ER tablet Take 20 mEq by mouth 2 times daily. pramipexole (MIRAPEX) 1 MG tablet Take 1 tablet by mouth nightly. 30 tablet 1 rivaroxaban (XARELTO) 20 mg tablet Take 20 mg by mouth Daily. tiotropium (SPIRIVA RESPIMAT) 2.5 mcg/puff inhaler inhale 2 puffs by mouth once daily travoprost (TRAVATAN Z) 0.004% ophthalmic solution 1 drop. No current facility-administered medications for this visit. Family History Problem Relation Age of Onset Heart disease Father Cancer Father prostate Hypertension Father Arthritis Father Heart disease Mother Kidney disease Mother Heart disease Sister Diabetes Sister Other (see comment) Sister lung problems Hypertension Sister Diabetes Brother Hypertension Brother Arthritis Brother Arthritis Brother Hypertension Brother Diabetes Brother No known problems Daughter Diabetes Paternal Grandfather Heart disease Paternal Grandfather Diabetes Paternal Grandmother Heart disease Paternal Grandmother Alcohol abuse Maternal Grandfather Heart disease Maternal Grandmother Heart attack Other FAMILY HISTORY Heart disease Brother Diabetes Brother Arthritis Brother No known problems Child No known problems Child Hypertension Sister Arthritis Sister Social History Tobacco Use Smoking status: Former Smoker Packs/day: 1.00 Years: 14.00 Pack years: 14.00 Types: Cigarettes Start date: 02/21/1958 Last attempt to quit: 02/22/1972 Years since quittin.3 Smokeless tobacco: Never Used Substance Use Topics Alcohol use: No Alcohol/week: 0.0 oz Drug use: Yes Frequency: 1.0 times per week Types: Marijuana Comment: 5 drops daily Review of Systems: Constitutional: Negative for fever, malaise, fatigue or weight loss. HENT: Negative for vision loss/changes. Positive for glasses and or contacts and failing v ision. Positive for nasal obstruction, changes in taste, artificial dentition, ears ringing , hair loss, hearing loss and congestion Respiratory: Positive for shortness of air, chronic cough coughing up blood Cardiovascular: Positive for hypertension, ankle swelling, leg cramps, skipping beats and b lood clots. Gastrointestinal: Positive for abdominal pain, hemorrhoids and constipation Musculoskeletal: Positive for bilateral knee pain, back and her shoulder pain, physical gilbert dicaps, rheumatoid disease, osteoporosis, joint swelling and leg cramps at night Genitourinary: Positive for weak urine stream and nocturia Skin: Positive for itching/burning, skin bruising easily and skin cancer Neurological: Positive for headaches, faintness, tremors, numbness, dizziness, changes in h andwriting, memory loss and shooting pains Psych: Positive for sleep pattern changes Imaging/Studies: Reviewed imaging studies today in our office Xr Knee Right 1 - 2 Vw Result Date: 07/03/2018 XR KNEE RIGHT 1 - 2 VW 07/03/2018 1:49 PM HISTORY: BILATERAL KNEE PAIN. COMPARISON: 01/03/20 18 FINDINGS: See below IMPRESSION - Single lateral view demonstrates moderate right patellof emoral compartment osteoarthritis. Bones are osteopenic. Trace joint effusion. Dictated and Signed by: Pancho Corado MD Electronically signed: 07/03/2018 2:54 PM Xr Knee Left 4 + Vw Result Date: 07/03/2018 XR KNEE LEFT 4 + VW 07/03/2018 1:49 PM HISTORY: BILATERAL KNEE PAIN. COMPARISON: None. FINDI NGS: Mild bilateral knee medial and lateral compartmental osteoarthritis. Moderate bilateral patellofemoral compartment osteoarthritis which is worse on the right. Complete obliteratio n of the joint space involving the right lateral patellofemoral compartment. No acute soft t issue or osseous abnormality identified. Bones are osteopenic. IMPRESSION - Degenerative jared nges as described above. Dictated and Signed by: Pancho Corado MD Electronically signed: 2:53 PM Physical Exam: Vitals: 07/03/18 1358 Weight: 94.3 kg (208 lb) Height: 1.626 m (5' 4") Constitutional: Pleasant and cooperative with exam. In no acute distress. Appears their stated age. Head: Normal cephalic and atraumatic. Eyes: EOM intact ENT: Adequate hearing noted bilaterally Cardiovacular: No lower extremity edema noted. Pulmonary: Non-labored respirations. Pt does not appear short of breath. Musculoskeletal: Pt ambulates with obvious abnormal gait today. Trendelenburg leg gait. Ambulates with assistance of a walker. She is able to be full weightbearing. There is no c lear to distant ligamental instability other knee but very prominent crepitation is observed at bilateral patellofemoral compartments it does cause her pain. Painful Lucas test at the right knee. Nontender over bilateral quadriceps and patella tendons. Painful when palp ating over bilateral medial mid joint lines. No significant tenderness laterally. Neurologic: No obvious neurological abnormalities observed with patient. Skin: Warm and dry. No erythema or swelling noted at bilateral knees Psych: Pt is alert, oriented. Answers questions promptly when asked Assessment/Plan: 1. Primary osteoarthrosis bilateral knees; advanced 2. Bilateral knee pain A. Review of plain film image studies of both knees reveals tricompartmental osteoarthrit ic changes but significantly worse at bilateral patellofemoral compartments with osteophyte formation and essentially [id number] apposition. This appears to be the greatest cause of her pain. Therefore we discussed treatment options. Options consisting of continued obser vation, pain medication, glucosamine/chondroitin, physical therapy and injection therapy. S urgical intervention in the way of total knee arthroplasty could be considered but given her significant medical comorbidities she is a poor surgical candidate. She wishes to explore further injection therapy and wishes to pursue viscosupplementation. Therefore I will seek medical authorization for a bilateral knee gel 1 injection therapy to be performed at a time that is convenient for her. Follow-up for injection therapy once authorized both knees wit h gel 1. B. Patient is advised that if they have any questions, comments or concerns to contact our office. I spent over 30 minutes face to face with the patient, with over 50% spent in counseling an d/or coordination of care regarding chronic bilateral knee pain, review images today and pat hology with discussion and development of a treatment plan. Arnol Jimenez PA-C 07/04/2018 13:41 This history and physical was dictated using the [employer] voice recognition system. There may be minor errors in grammar. documented in this encounter Plan of Treatment +--------+ [...] | | | | | [place] [id number] | | | | | | [phone] | | | | | | | | +--------+ + + + + | 07/20/ | Office | Sleep Medicine | Leighton Conde PA | | | 2018 | Visit | | [address] | | | | | | [place] | | | | | | [address] | | | | | | | | +--------+ + + + + | 09/04/ | Office | Pulmonology | Ariel Patiño, | | | 2018 | Visit | | [address] | | | | | | [place] | | | | | | [address] | | | | | | | | +--------+ + + + + | 10/19/ | Procedure | Physical Medicine | Talon Moran, | | | 2018 | visit | and Rehabilitation | [address] | | | | | | [place] | | | | | | [address] | | | | | | | | +--------+ + + + + | 11/01/ | Office | Urology | Arnol Koroma | | | 2018 | Visit | | [address] | | | | | | [place] | | | | | | [id number] | | | | | | | | +--------+ + + + + documented as of this encounter Visit Diagnoses + + | Diagnosis | + + | Primary osteoarthritis of right knee - Primary Primary localized osteoarthrosis, | | lower leg | + + | Primary osteoarthritis of left knee Primary localized osteoarthrosis, lower leg | + + | Chronic pain of both knees | + + documented in this encounter
--- OUTSIDE RECORDS SUMMARY | ~2018-07-06 | XMS | Encounter Summary ---
Demographics + + + | Address | [address] | | | [place] [address] | + + + | Home Phone | | + + + | Preferred Language | Unknown | + + + | Marital Status | | + + + | Quaker Affiliation | Unknown | + + + | Race | Unknown | + + + | Ethnic Group | Unknown | + + + Author + + + | Author | [facility] | | | and [place] | + + + | Organization | [facility] | | | [...] Team Providers + +------+ + | Care Preparation Supervisor Name | Role | Phone | + +------+ + | Yuri Miner MD | PCP | | + +------+ + Encounter Details +--------+ + + + + | Date | Type | Department | Care Team | Description | +--------+ + + + + | 07/03/ | Hospital | [facility] | Arnol Jimenez | Pain in both knees, | | 2019 | Encounter | [facility] | [address] | unspecified | | | | [address] | [place] | chronicity | | | | [place] | [place] [address] | | | | | [address] | [phone] | | | | | [phone] | | | +--------+ + + + [...] | | | (TYLENOL) 500 mg | mouth Every 6 hours | | | | | | tablet | as needed. | | | | | + [...] + + + +---------+ + + | losartan (COZAAR) | take 1 tablet by | | 1 | 05/23/19 | | | 50 mg tablet | mouth daily | | | 19 | | + + + +---------+ + [...] + + + +---------+ + + | ONETOUCH DELICA | TEST twice a [...] | 0 | 01/07/20 | | | (SHAHEED Crawley) 0.004% | | | | 17 | [...] | | | | | [place] [address] | | | | | | [phone] | | | | | | | | +--------+ + + + + | 07/20/ | Office | Sleep Medicine | Leighton Conde PA | | | 2018 | Visit | | [address] | | | | | | [place] | | | | | | [address] | | | | | | | | +--------+ + + + + | 09/04/ | Office | Pulmonology | Ariel Patiño, | | | 2018 | Visit | | [address] | | | | | | [place] | | | | | | [address] | | | | | | | | +--------+ + + + + | 10/19/ | Procedure | Physical Medicine | Talon Moran, | | | 2018 | visit | and Rehabilitation | [address] | | | | | | [place] | | | | | | [address] | | | | | | | | +--------+ + + + + | 11/01/ | Office | Urology | Arnol Koroma | | | 2018 | Visit | | [address] | | | | | | [place], [place] | | | | | | [address] | | | | | | | [...] + + documented in this encounter Results XR Knee Right 1 - 2 Vw [...] | + +---------+ + + XR Knee Left 4 + Vw (07/03/2018 [...] Procedure Note | + + | Klever, Wilmer Results In - 07/03/2018 1456 PDT XR [...] | | | + +---------+ + + documented in this encounter Visit Diagnoses + + | Diagnosis | + + | Pain in both knees, unspecified chronicity | + + documented in this encounter"
--- OUTSIDE RECORDS SUMMARY | ~2018-07-06 | XMS | Clinical Summary ---
Demographics + + + | Address | [address] | | | [place] [address] | + + + | Home Phone | | + + + | Preferred Language | Unknown | + + + | Marital Status | Single | + + + | Roman Catholic Affiliation | PRO | + + + | Race | White | + + + | Ethnic Group | Not or | + + + Author + + + | Author | [facility] | + + + | Organization | [facility] | + + + | Address | Unknown | + + + | Phone | Unavailable | + + + Care Team Providers + +------+ + | Care Car Customizer Name | Role | Phone | + +------+ + PP | Unavailable | + +------+ + Source Comments [facility] is fully live on both [facility] and [facility] Allergies Not on File Medications Not on [...] | | | | all | | [id number] | | | | | | dates [...] Person | Other | [birth year] | | [address] | | | al/Fam | | 1941 | [phone] | [place] | | | stew | | | [address] (Home) | [address] | + +--------+ +--------+ + +"
--- OUTSIDE RECORDS SUMMARY | ~2018-07-06 | XMS | Encounter Summary ---
Demographics + + + | Address | [address] | | | [place] [address] | + + + | Home Phone | | + + + | Preferred Language | Unknown | + + + | Marital Status | | + + + | Yazdanism Affiliation | Unknown | + + + | Race | Unknown | + + + | Ethnic Group | Unknown | + + + Author + + + | Author | [facility] | | | and [place] | + + + | Organization | [facility] | | | [...] Team Providers + +------+ + | Care Gas Engine Operator Name | Role | Phone | + +------+ + | Yuri Miner MD | PCP | | + +------+ + Reason for Referral Evaluate & Treat (Routine) +--------+ + + [...] | | | | | pain | [address] | [facility] | | | | | Primary | [place], | [place], | | | | | osteoarthrit | [place] [address] | [place] | | | | | is of both | Phone: | [address] | | | | | knees | [phone] | Phone: | | | | | | Fax: | [phone] | | | | | | [phone] | Fax: | | | | | | | [phone] | +--------+ + + + + + Evaluate & Treat (Routine) + + + + + + + | Status | Reason | Specialty | Diagnoses / | Referred By | Referred To | | | | | Procedures | Contact | Contact | + + + + + + + | Pending | Specialty | Physical | Diagnoses | Dean, | Talon Moran | | Review | Services | Medicine and | Bilateral | Talon Quarles MD | Kirsten Quarles MD [address] | | | Required | Rehabilitatio | chronic knee | [address] | | | | n | pain | [address] | [place], | | | | | Primary | [place], | [place] [address] | | | | | osteoarthrit | [place] [address] | Phone: | | | | | is of both | Phone: | [phone] | | | | | knees | [phone] | Fax: | | | | | Procedures | Fax: | [phone] | | | | | DOS 10/19/18 | [phone] | | + + + + + + + Reason for Visit + + + | Reason | Comments | + + + | Knee Pain | | + + + Encounter Details +--------+---------+ + + + | Date | Type | Department | Care Team | Description | +--------+---------+ + + + | 06/19/ | Office | [facility] [place] | Talon Moran, | Bilateral chronic | | 2019 | Visit | PHYSIATRY [address] | MD [address] | knee pain (Primary | | | | [address] [place], | [place], [place] | Dx); Primary | | | | [place] [address] | [address] | osteoarthritis of | | | | [phone] | | both knees | +--------+---------+ + + + Social History [...] Weight | 94.3 kg (208 lb) | 06/19/2018819 PDT | + + + + | Height | 162.6 cm (5' 4") | 06/19/2018819 PDT | + + + + | Body Mass Index | 35.7 | 06/19/2018819 PDT | + + + + documented [...] + + documented as of this encounter Patient Instructions Patient Instructions Flores Perez, Air Control Electronics Operator - 06/19/2018 8:20 PDTTry over the counter glucosamine chondroitin. If you develop any signs of infection (e.g. Fever, chills, redness, warmth, drainage) seek emergent medical attention and inform the clinic. Feel free to use ice, massage, and stret ch after your injections today. Please avoid direct heat, over the injections site, for 3 d ays following injection. Return to clini documented in this encounter Progress Notes Talon Moran MD - 06/19/2018 0820 PDTFormatting of this note might be different from ben rowley. Referring Physician: No ref. provider found Diagnosis: 1. Bilateral chronic knee pain 2. Primary osteoarthritis of both knees Procedure: Bilateral knee intraarticular steroid injection Procedure Detail: Informed consent was obtain. Risks, benefits and alternative treatments were reviewed. Risk s reviewed include, but not limited to bruising, bleeding, infection, damage to adjacent str uctures, disability and . We reviewed that with steroid injection, there is a risk of skin discoloration at the injection site. We reviewed that the benefits of this procedure w ill wear off over time. We reviewed that some people do not have any benefit from this proc edure. We discussed that diabetics may notice increased blood sugar after having steroid i njection, and that insulin, medication, and diet may need to be adjusted accordingly. We di scussed that steroid injection into any one joint should not be repeated more than 3-4 times per year. Once informed consent was obtained, two seperate 5 ml syringes were prepared. Each syringe contained 1 ml of DepoMedrol 40 mg/ml and 4 ml of lidocaine 1%. Each syringe had a total med ication volume of 5 ml. The left knee intraarticular space was identified from a anterior lateral approach, anatomi lara and with palpation. The skin over the injection site was marked with pressure. The ski n overlying the injection site was sterilized with betadine swabs x 3. The contents of the f irst syringe was injected into the left knee intraarticular space from a anterior lateral ap proach using a 25 gauge 1-1/2 inch needle. Sterile "no touch technique" was used for the en tire procedure. The injection was tolerated without complication. After the injection the patient did report reduced pain. The right knee intraarticular space was identified from a anterior lateral approach, anatom ically and with palpation. The skin over the injection site was marked with pressure. The sk in overlying the injection site was sterilized with betadine swabs x 3. The contents of the second syringe was injected into the right knee intraarticular space from a anterior lateral approach using a 25 gauge 1-1/2 inch needle. Sterile "no touch technique" was used for the entire procedure. The injection was tolerated without complication. After the injection t he patient did report reduced pain. The patient was instructed that should they have any alarming signs or symptoms that they s hould seek emergent medical attention as well as inform my clinic. Izzy Novoa has had prior knee steroid injections providing approximately 4 months of p ain relief and improve function. Izzy Novoa will return to the clinic in approximately 4 months for repeat bilateral knee intraarticular steroid injections for bilateral knee keisha n and bilateral knee osteoarthritis. Talon Moran MD (Jr.) arsh, Talon Quarles MD - 0820 PDT Talon Moran MD [address] [place] [address], [address] [place], [place] [id number] FAX: PHYSICAL MEDICINE AND REHABILITATION H&P CHIEF COMPLAINT: Chief Complaint Patient presents with Knee Pain HISTORY OF PRESENT ILLNESS: Izzy Novoa is a 77 y.o. female being seen today in follow-up for complaints of bilater al knee pain. Izzy Novoa was last seen on 01/27/18 for right knee steroid injection. Izzy Novoa reports that her pain increased pain in the last two weeks. Izzy Novoa rates the pain as severe. Izzy Novoa describes the pain as sharp, t zhane and aching. Her symptoms worsen with going up and down stairs and standing. Her symp toms improve with nothing. Izzy Novoa does describe numbness of the bilateral lower e xtremities. She does report weakness of the bilateral lower extremities. Izzy Novoa reports that pain is inhibiting exercise. She indicates that pain is worsening. Izzy Novoa's medications, allergies, past medical, surgical, social and family histori es were reviewed and updated as appropriate. CURRENT MEDICATIONS: Current Outpatient Medications Medication Sig Dispense Refill acetaminophen (TYLENOL) 500 mg tablet Take 1,000 mg by mouth Every 6 hours as needed. acetaminophen (TYLENOL) 500 mg tablet Take 1,000 mg by mouth. albuterol 2.5 mg/3 mL nebulizer solution inhale [...] 1 tablet by mouth Daily. (Patient gurwinder ng differently: Take 10 mg by mouth Daily.) [...] No current facility-administered medications for this visit. ALLERGIES: Allergies Allergen Reactions Cimetidine Other (See Comments) Tagamet: dizzy Other reaction(s): Other (See Comments) Tagamet: dizzy Tagamet: dizzy Clonidine Other (See Comments) Too much clonidine makes pt have headaches Other reaction(s): Other (See Comments) Too much clonidine makes pt have headaches Sensitivity - Pt has a Clonidine Patch on changes weekly. Too much clonidine makes pt have headaches Tolerates Catapres (brand name) patches REVIEW OF SYSTEMS: ROS GENERALLY: No fever, no night sweats, no anemia, no fatigue, no recent profound weight ch anges. EYES: No eye problems, + use of corrective lenses, no eye injury, no double vision, no bli ndness. EARS, NOSE, AND THROAT: No changes in taste or smell, no hearing difficulty, no ringing in the ears, no ear drainage, no dizziness, no voice changes, no difficulty swallowing, no sig nificant snoring, no sleep apnea, no sinus problems, no major dental work. NEUROLOGICALLY:The patient has no numbness/pain of arms, +pain of legs, no awake with numbn ess/pain, +weakness, no muscle aching, no coordination difficulty, +change in walk, no head injury, no neck injury, no back injury, no pain in neck, no pain in back, no stroke, no vilma ting spells, no loss of consciousness, no tremor/shaking, no seizures, no headaches, no migr brandy, no memory loss, no speech difficulty, no confusion and no numbness of face. PSYCHIATRIC: No depression, no sleep disorders, no anxiety, no bipolar disorder, no psycho tic episodes. CARDIOVASCULAR: No heart attacks, no heart murmur, no heart fluttering, no chest pain, no ankle swelling. LUNG DISEASE: No shortness of breath, no cough, no tuberculosis, no bloody cough, no asth ma, no emphysema/COPD. GASTROINTESTINAL: No bowel disease, no nausea or vomiting, no rectal bleeding, no constipa tion, no stool incontinence, no liver disease, no gallbladder disease, no abdominal pain, no ulcers. KIDNEY DISEASE: No urinary frequency, no painful or difficult urination, no incontinence. ENDOCRINE: No diabetes, no thyroid disease, no osteopenia or osteoporosis, no breast drain age. SKIN: No breast lumps, no skin changes, no rashes, no itches. HEMATOLOGIC/LYMPHATIC: No enlarged lymph nodes, no easy or unusual bleeding, no personal h istory of cancer. RHEUMATOLOGIC: + joint arthritis, no rheumatoid arthritis. PHYSICAL EXAMINATION: Blood pressure 135/78, pulse 85, height 1.626 m (5' 4"), weight 94.3 kg (208 lb), not curre ntly . Body mass index is 35.7 kg/m. GENERAL: The patient is well developed and well nourished. HEENT: Normocephalic and atraumatic. Normal sclerae without icterus. NECK (ANTERIOR): There is no apparent cervical lymphadenopathy or thyromegaly. PULMONARY: The patient is in no acute respiratory distress with unlabored respirations. CARDIOVASCULAR: Regular rate and rhythm. ABDOMEN: Distended. SKIN: Limited skin exam shows no significant rashes or lesions. NEUROLOGIC: The patient is awake, alert, and oriented. She follows simple and complex commands. Her speech is fluent. She comprehends speech well. She has no apparent deficits with short or custodial memory. The cranial nerves appear grossly intact. MUSCULOSKELETAL : DATABASE: No new imaging is available for review. ASSESSMENT: 1. Bilateral chronic knee pain 2. Primary osteoarthritis of both knees PLAN: 1. Overall Izzy Kaylan Prock had excellentresponse to right knee steroid injection. She den ies side effects to injections. Izzy Kaylan Prock pain has returned in the last two weeks. Peg gy Kaylan Prock pain is severe when walking and standing. Izzy Kaylan Prock knee pain has been gr adually worsening. 2. Due to severity of pain repeat bilateral knee steroid injections were performed in clini c today for the treatment of bilateral chronic knee pain and primary osteoarthritis of both knees. Please see separate procedure note. 3. Today we discussed conservative treatment with a knee steroid injection for treatment o f bilateral knee pain. Izzy Kaylan Prock was advised that knee steroid injections are conside red a temporary treatment given with the goal of reducing symptoms of bilateral knee pain. W e discussed that the injection will not fix or cure the underlying cause of the pain. The g oal of the steroid injection is to minimize swelling and inflammation that may be causing sy mptoms of pain. We discussed that injections do not work for everyone. Izzy Novoa was a dvised that on average a knee injection may offer 4-6 months of reduced pain, with 4 months being the average. Steroid injections, if needed, may be repeated up to three times yearly. The benefits from this treatment are time limited. With hopes of reducing severity of pain Izzy Novoa should return to clinic as schedule d for bilateral knee steroid injections in about 4 months. Previous knee steroid injection h ave provided relief for about 4 months. May consider Synvisc knee injections in the future. 4. Additionally order for orthopedic surgery was placed today for evaluation and treatment of bilateral chronic knee pain and primary osteoarthritis of both knees. Izzy carter pain has been gradually worsening. She has tried knee steroid injections and participated in physical therapy. 5. Today we discussed over the counter supplement glucosamine chondroitin. Izzy Novoa was advised to purchase glucosamine chondroitin as it may help improve knee pain. She may continue use of tylenol which she finds helpful. She should not use NSAIDs as she is on blood thinner and at high risk for GI bleed complications. She was encouraged to work toward weight loss through diet and exercise. She uses single point cane with some benefit. She has tried knee braces but finds them too cumbersome. 6. Izzy Novoa should return to clinic as scheduled for repeat bilateral knee steroid i njections. I spent 20 minutes in visit with Izzy Novoa today with the majority of time spent coun seling the patient on her diagnosis, options for her care, and coordinating her care. I, Talon Moran MD personally performed the services described in this documentation, as scribed by in my presence, MEG Montelongo and are both accurate and complete. Talon Moran MD - 06/19/2018 documented in this encou er Plan of Treatment +--------+ + + + + | Date | Type | Specialty | Care Team | Description | +--------+ + + + + | 07/12/ | Office | Orthopedic Surgery | Arnol Jimenez | | | 2018 | Visit | | [address] | | | | | | [address] | | | | | | [place] [address] | | | | | | [phone] | | | | | | | | +--------+ + + + + | 07/20/ | Office | Sleep Medicine | Leighton Conde PA | | | 2018 | Visit | | [address] | | | | | | [place] | | | | | | [address] | | | | | | | | +--------+ + + + + | 09/04/ | Office | Pulmonology | Ariel Patiño, | | | 2018 | Visit | | MD Michael [address] | | | | | | [place] | | | | | | [address] | | | | | | | | +--------+ + + + + | 10/19/ | Procedure | Physical Medicine | Talon Moran, | | | 2018 | visit | and Rehabilitation | [address] | | | | | | [place] | | | | | | [address] | | | | | | | | +--------+ + + + + | 11/01/ | Office | Urology | Arnol Koroma | | | 2018 | Visit | | MD Johnny [address]urt[address] | | | | | | [place] | | | | | | [address] | | | | | | | | +--------+ + + + + + +--------+ + + | Name | Priori | Associated Diagnoses | Order Schedule | | | ty | | | + +--------+ + + | * [facility] Phys[facility] - AMB | Routin | Bilateral chronic | Ordered: 06/19/2018 | | Referral | e | knee pain Primary | | | | | osteoarthritis of | | | | | both knees | | + +--------+ + + | * [facility] - | Routin | Bilateral chronic | Ordered: 06/19/2018 | | AMB Referral | e | knee pain Primary | | | | | osteoarthritis of | | | | | both knees | | + +--------+ + + documented as of this encounter Visit Diagnoses + + | Diagnosis | + + | Bilateral chronic knee pain - Primary Pain in joint, lower leg | + + | Primary osteoarthritis of both knees Primary localized osteoarthrosis, lower leg | + + documented in this encounter Administered Medications + + + +-------+------+ + | Medication Order | MAR | Action | Dose | Rate | Site | | | Action | Date | | | | + + + +-------+------+ + | lidocaine (PF) 1% injection 8 | Given by | 06/20/19 | 8 mLs | | Other | | mL 8 mL, Intramuscular, ONCE, | Other | 19 10:41 | | | (Comment | | Tue06/19/18 at 1015, For 1 dose | | PDT | | | ) | + + + +-------+------+ + +---+---+ | | | +---+---+ + + + +-------+---+ + | methylPREDNISolone acetate | Given by | 06/20/19 | 80 mg | | Other | | (DEPO-MEDROL) 40 mg/mL injection | Other | 19 10:42 | | | (Comment | | 80 mg 80 mg, Intramuscular, | | PDT | | | ) | | ONCE, Tue06/19/18 at 1015, For 1 | | | | | | | dose, Not for IV use., | | | | | | + + + +-------+---+ + +---+---+ | | | +---+---+ documented in this encounter
--- OUTSIDE RECORDS SUMMARY | ~2018-07-06 | XMS | Encounter Summary ---
Demographics + + + | Address | [address] | | | [place] [address] | + + + | Home Phone | | + + + | Preferred Language | Unknown | + + + | Marital Status | | + + + | Sikhism Affiliation | Unknown | + + + | Race | Unknown | + + + | Ethnic Group | Unknown | + + + Author + + + | Author | [facility] | | | and [place] | + + + | Organization | [facility] | | | and [...] Team Providers + +------+ + | Care Design Printing Machine Set Up Operator Name | Role | Phone | + +------+ + | Yuri Miner MD | PCP | | + +------+ + Encounter Details +--------+ + + + + | Date | Type | Department | Care Team | Description | +--------+ + + + + | 07/03/ | Orders Only | [facility] | Arnol Jimenez | Pain in both knees, | | 2018 | | ORTHOPEDIC SURGERY | [address] | unspecified | | | | [address] [facility] | Michael Peg[address] | chronicity (Primary | | | | [place] | [place] [address] | Dx) | | | | [address] | [phone] | | | | | [phone] | | | +--------+ + + + [...] | | | | | [place] [address] | | | | | | [phone] | | | | | | | | +--------+ + + + + | 07/20/ | Office | Sleep Medicine | Leighton Conde PA | | | 2018 | Visit | | [address] | | | | | | [place] | | | | | | [address] | | | | | | | | +--------+ + + + + | 09/04/ | Office | Pulmonology | Ariel Patiño, | | | 2018 | Visit | | MD [address] | | | | | | [place] | | | | | | [address] | | | | | | | | +--------+ + + + + | 10/19/ | Procedure | Physical Medicine | Talon Moran, | | | 2018 | visit | and Rehabilitation | [address] | | | | | | [place] | | | | | | [address] | | | | | | | | +--------+ + + + + | Office | Urology | Arnol Koroma | | | 2018 | Visit | | MD Bryant [address] [place] [address] | | | | | | [place], [place] | | | | | | [address] | | | | | | | | +--------+ + + + + documented as of this encounter Results XR Knee Left 4 + Vw [...] | Pain in both knees, unspecified chronicity - Primary | + + documented in this encounter"
--- OUTSIDE RECORDS SUMMARY | ~2018-07-06 | XMS | Encounter Summary ---
Demographics + + + | Address | [address] | | | [place] [address] | + + + | Home Phone | | + + + | Preferred Language | Unknown | + + + | Marital Status | | + + + | Confucianism Affiliation | Unknown | + + + | Race | Unknown | + + + | Ethnic Group | Unknown | + + + Author + + + | Author | [facility] | | | and [place] | + + + | Organization | [facility] | | | [...] Team Providers + +------+ + | Care National Sales Manager Name | Role | Phone | [...] | History of | Jimmy Chin | [place] [address] | | | Required | | iron | MD [address] | | | | | deficiency | [address] | [place], | | | | | [place] | [place] | [place] [address] | | | | | (obstructive | [place], [place] | Phone: | | | | | sleep | [phone] | [phone] | | | | | apnea) | Phone: | Fax: | | | | | Periodic | [phone] | [phone] | | | | | limb | Fax: | | | | | | movements of | [phone] | | | | | | sleep | | | | | | | Procedures | | | | | | | HI POLYSOM | | | | | | | 6/>YRS SLEEP | | | | | | | W/CPAP 4/> | | | | | | | ADDL PINKY | | | | | | | ATTND HI | | | | | | | [...] + + + + | 05/10/ | [facility] | [facility] | Jimmy Olivera | [place] on CPAP; Iron | | 2019 - | Encounter | MED [facility] SLEEP | MD [address] | deficiency; Periodic | | | | CENTER [address] | [address] [facility] | limb movements of | | 05/11/ | | [place], [place] | [place] [address] | sleep; [place] | | 2019 | | [address] | [phone] | (obstructive sleep | | | | [phone] | | apnea); Periodic | | | [...] | | | | | [place] [address] | | | | | | [phone] | | | | | | | | +--------+ + + + + | 07/20/ | Office | Sleep Medicine | Leighton Conde PA | | | 2018 | Visit | | [address] | | | | | | [place] | | | | | | [address] | | | | | | | | +--------+ + + + + | 09/04/ | Office | Pulmonology | Ariel Patiño, | | | 2018 | Visit | | MD [address] | | | | | | [place] | | | | | | [address] | | | | | | | | +--------+ + + + + | 10/19/ | Procedure | Physical Medicine | Talon Moran, | | | 2018 | visit | and Rehabilitation | [address] | | | | | | [place] | | | | | | [address] | | | | | | | | +--------+ + + + + | 11/01/ | Office | Urology | Arnol Koroma | | | 2018 | Visit | | MD [address] | | | | | | [place] | | | | | | [address] | | | | | | | [...] [facility] | | | [place] [address] | | | Split-Night Polysomnogram/Positive Airway Pressure [...] | | Bryce Olivera Jr., MD, FAASMMedical DirectorSeattle Lorena [facility] | | | Disorders CenterProOverlake Hospital Medical Center, | | | FLClinical Optician Manager of MedicineBlue Mountain Hospital | | | [place], [place] | | |The night technologist at [...] | | | |Jimmy Olivera Jr., MD, [facility] | | |Cabinet Assembler | | |[facility] | | |[facility] | | |[place] | | |Clinical brush clearer surveying | | |[facility] | | |[place] | | + + + + + | Procedure Note | + + | Jimmy Olivera Jr., MD - 05/22/2018 0933 PDT [facility] | | Disorders [place], [place] [id number] | | Polysomnogram/Positive Airway Pressure Titration Report [...] follow-Shital Olivera Jr., MD, FAASMMedical | | [facility] Centerdave Carrillo [facility] Sleep Disorders [facility] | | [place] Murryinical Optician Manager of MedicineBlue Mountain Hospital | | [place], [place] | |Clinical brush clearer surveying | |[facility] | |[place], [place] | + + documented in this [...]
--- OUTSIDE RECORDS SUMMARY | ~2018-07-06 | XMS | Encounter Summary ---
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 using a split-night protocol has been arranged. I've also discussed in detail the following sleep hygiene and cognitive behaviora l recommendations with her: SLEEP SUGGESTIONS FOR Izzy Novoa 1) Awaken at nearly the same time ever day at 6am. Don't sleep in. 2) Obtain as much bright light as possible during your desired waking hours. And try to sta y active and social. 3) Minimize or preferably eliminate caffeine (coffee, tea, energy drinks, soft drinks, etc. ) and absolutely no caffeine more than 6 hours after wake time. 4) Eliminate or minimize smoking and alcohol consumption, especially near bedtime. 5) Do not nap during the daytime; this will interfere with your night-time sleep. 6) Darken your environment an hour before bedtime. 7) Consider "unwinding" and "closing" your day about an hour before your anticipated bedtim e. 8) Go to bed only when you are sleepy and no earlier than 11pm. 9) Use your bedroom only for sleeping. 10) Only sleep in your bedroom - do not sleep in other areas of your house. 11) Between bedtime and wake time the only things you are allowed to do is to sleep in your bedroom or to sit comfortably in another room, in the dark, doing nothing. Do not watch TV, work on the computer, send text messages, do housework, or problem solve between bedtime an d wake time. 12) If you find that you aren't asleep, get up out of bed (keep your environment dark with just low level light, so that you won't fall) and go to another room. Sit quietly in the brandon k until you are sleepy and then go back to bed. You may repeat this as many times as necessa ry. But you must awaken at the same time every day, regardless of how you slept that night. 13) If you continue to sleep poorly, consider going to bed a little later each night (but a waken at the same time every morning and don't nap) until you are sleeping through the major ity of the time between bed time and wake time. Patient Active Problem List Diagnosis Blepharospasm Bunion Chronic low back pain Chronic obstructive pulmonary disease - INHALER Use Hypertension Fatigue Glaucoma Hammer toe Personal history of malignant neoplasm of breast H/O Malignant neoplasm of cervix Insomnia Class II, BMI 35-39.9 Osteoarthritis of multiple joints Peripheral neuropathy YOVANNY on CPAP Type 2 diabetes mellitus without complication, without long-term current use of insulin Lumbar radicular pain Postural kyphosis of lumbar region Lumbar facet arthropathy Lumbar spinal stenosis Neurogenic claudication Cervical radiculopathy Hyperreflexia Status post lumbar spinal fusion Special screening for malignant neoplasms, colon Beta Yen - Daily Use H/O hernia repair Adverse effect of anesthesia - Slow Emergence/Delerium Deviated nasal septum Hypertrophy of nasal turbinates Fever Chronic kidney disease, stage III (moderate) Hypertension, renal Urinary incontinence Secondary hyperparathyroidism Dyspnea COPD, moderate Chronic SI joint pain Constipation Decreased GFR Serum creatinine raised Exposure to smoke from wood stove Family history of cardiovascular disease Fibromyalgia H/O lumbosacral spine surgery Lumbar disc disease Adiposity Peripheral edema Skin lesion Sepsis HAP (hospital-acquired pneumonia) H/O melanoma excision Hematemesis Balance problem Acute encephalopathy Today, 60 minutes was spent face to face with the patient; the majority of time was spent c ounseling regarding sleep issues. Parts of this note were dictated using [employer] voice recognition software. Occasional wrong - word or sound-alike substitutions may have occurred due to the inherent limitations of voi ce recognition software. Please read the chart carefully and recognize, using context, sonali lees these substitutions have occurred. imon, Jimmy Arias MD - 04/28/2018 1000 PST 04/28/18 0900 Browning Depression Inventory-II Depression Score 16 - Mild depression Insomnia Severity Index Insomnia Severity Index 16 [place] Sleepiness Scale 1. Sitting and reading 2 2. Watching TV 3 3. Sitting, inactive in a public place (e.g. a theatre or a meeting) 1 4. As a passenger in a car for an hour without a break 2 5. Lying down to rest in the afternoon when circumstances permit 3 6. Sitting and talking to someone 1 7. Sitting quietly after a lunch without alcohol 1 8. In a car, while stopped for a few minutes in traffic 1 Total score 14 SF-36v2 Score PF 26.92 RP 23.47 BP 30.55 GH 35.59 VT 40.72 SF 37.29 RE 45.72 MH 40.4 PCS 23.89 MCS 48.58 documented in this encounter Plan of Treatment +--------+ + + + + | Date | Type | Specialty | Care Team | Description | +--------+ + + + + | 07/12/ | Office | Orthopedic Surgery | Arnol Jimenez | | | 2018 | Visit | | [address] | | | | | | [address] [place] | | | | | | [place] [address] | | | | | | [phone] | | | | | | | | +--------+ + + + + | 07/20/ | Office | Sleep Medicine | Leighton Conde PA | | | 2018 | Visit | | [address] | | | | | | [place] | | | | | | [address] | | | | | | | | +--------+ + + + + | 09/04/ | Office | Pulmonology | Ariel Patiño, | | | 2018 | Visit | | MD [address] | | | | | | [place] | | | | | | [address] | | | | | | | | +--------+ + + + + | 10/19/ | Procedure | Physical Medicine | Talon Moran, | | | 2018 | visit | and Rehabilitation | MD [address] | | | | | | [place] | | | | | | [address] | | | | | | | | +--------+ + + + + | 11/01/ | Office | Urology | Arnol Koroma | | | 2018 | Visit | | MD Johnny [address]urt[address] | | | | | | ST [place] | | | | | | [address] | | | | | | | | +--------+ + + + + + +--------+ + + | Name | Priori | Associated Diagnoses | Order Schedule | | | ty | | | + +--------+ + + | * [facility] - [facility] Referral | Routin | History of iron | Ordered: 04/28/2018 | | | e | deficiency YOVANNY | | | | | (obstructive sleep | | | | | apnea) Periodic | | | | | limb movements of | | | | | sleep | | + +--------+ + + documented as of this encounter Procedures + +--------+ + + + | Procedure Name | Priori | Date/Time | Associated Diagnosis | Comments | | | ty | | | | + +--------+ + + + | DIAGNOSTIC REPORT - | | 07/31/2014 | | Results for this | | EXTERNAL SCAN | | 0:00 PDT | | procedure are in the | | | | | | results section. | + +--------+ + + + documented in this encounter Results Ferritin (04/28/2018 11:43 PST) + +-------+ + + + | Component | Value | Ref Range | Performed | Pathologist | | | | | At | Signature | + +-------+ + + + | FERRITIN | 9 (L) | 11 - 307 ng/mL | [facility] | | | | | [...] ST. | [address] | [place] | [phone] | | [facility] | | [address] | | | - LABORATORY | | | | + + + + + DIAGNOSTIC REPORT - EXTERNAL SCAN (07/31/2014 0:00 PDT) + + + | Narrative | Performed At | + + + | Ordered by an | | | unspecified provider. | | + + + documented in this encounter Visit Diagnoses + + | Diagnosis | + + | YOVANNY (obstructive sleep apnea) - Primary Obstructive sleep apnea (adult) (pediatric) | + + | Restless legs Restless legs syndrome (RLS) | + + | Periodic limb movements of sleep Periodic limb movement disorder | + + | Organic insomnia Organic insomnia, unspecified | + + | History of iron deficiency Personal history of diseases of blood and blood-forming | | organs | + + documented in this encounter
--- OUTSIDE RECORDS SUMMARY | ~2018-07-06 | XMS | Clinical Summary ---
Demographics + + + | Address | [address] | | | [place] [address] | + + + | Home Phone | | + + + | Preferred Language | Unknown | + + + | Marital Status | | + + + | Lutheran Affiliation | Unknown | + + + | Race | Unknown | + + + | Ethnic Group | Unknown | + + + Author + + + | Author | [facility] | | | and [place] | + + + | Organization | [facility] | | | [...] Team Providers + +------+ + | Care Charging Manipulator Name | Role | Phone | + [...] | 2018 | Encounter | | DARIO Gonzalez | unspecified | [...] + | 06/19/ | Office | | Talon Moran, | Bilateral chronic | | 2018 [...] | Adriane | | | | | [place] | | + + + + + [...] Adriane | Alive | | | | [place] | | | + + + + [...] | | | | | [place] [address] | | | | | | [phone] | | | | | | | | +--------+ + + + + | 07/20/ | Office | | Leighton Conde PA | | | 2018 | Visit | | [address] | | | | | | [place] | | | | | | [address] | | | | | | | | +--------+ + + + + | 09/04/ | Office | | Ariel Patiño, | | | 2018 | Visit | | MD [address] | | | | | | [place] | | | | | | [address] | | | | | | | | +--------+ + + + + | 10/19/ | Procedure | | Talon Moran, | | | 2018 | visit | | MD [address] | | | | | | [place] | | | | | | [address] | | | | | | | | +--------+ + + + + | 11/01/ | Office | | Arnol Koroma | | | 2019 | Visit | | MD [facility] [address] | | | | | | [place], [place] | | | | | | [address] | | | | | | | [...] + +--------+--------+ +--------+--------+--------+ | Michael Sext Solera [id number] - | Generi | N/A: | [employer] - | | | [id number] | | [id number]: Qty: 2 on | c | Spine | MEDT | | | [id number] / | | 06/27/2017 by Justino Garcia | | Lumbar | | | | / | | DO [place] | | | | | | | + +--------+--------+ +--------+--------+--------+ | Putty Dio 5cc Dbm - | Graft | N/A: | [employer] - | | 03/21/ | [id number] | | [id number]: Qty: 1 | | Spine | MEDT [...] N/A: | [employer] - | | | [id number] | | [id number]: Qty: 4 on | | Spine | MEDT | | | [id number] | | 06/27/2017 by Justino Garcia | | Lumbar | | | | / / | Rich Quarles DO | | | | | | | + +--------+--------+ +--------+--------+--------+ | Set Scrw Ns G5 Brk Off Ti | Screw | N/A: | [employer] - | | | [id number] | | 4.75 - [id number]: | | Spine | MEDT | | [...] the | | | | | (moderate) ([facility]) | results section. | + +--------+ + + + | VITAMIN D, | Routin | 04/28/2018 | Chronic kidney | Results for this | | DEFICIENCY SCREEN | e | 11:43 PST | disease, stage III | procedure are in the | | (25-HYDROXY) | | | (moderate) ([facility]) | results section. | + +--------+ + + + | RENAL FUNCTION PANEL | Routin | 04/28/2018 | Chronic kidney | Results for this | | | e | 11:43 PST | disease, stage III | procedure are in the | | | | | (moderate) ([facility]) | results section. | + +--------+ + [...] [facility] | | | [place] [address] | | | Split-Night Polysomnogram/Positive Airway Pressure [...] | | | Bryce Olivera Jr., MD, [facility] DirectorChi [facility] | | | Disorders CenterProvidence [facility], | | | WAClinical [facility] | | | [place], [place] | | |The night technologist at [...] | | | |Jimmy Olivera Jr., MD, [facility] | | |Trophy Assembler | | |[facility] | | |[facility] | | |[place], [place] | | |Clinical ordnance technician | | |[facility] | | |[place], [place] | | + + + + + | Procedure Note | + + | Jimmy Olivera Jr., MD - 05/22/2018 09[address] [facility] Sleep | | Disorders [place], [place] [id number] | | Polysomnogram/Positive Airway Pressure Titration Report [...] follow-Shital Olivera Jr., MD, FAASMMedical | | [facility] | | [place] [facility] [place] [facility] | | [place], [place] | |Clinical ordnance technician | |[facility] | |[place], [place] | + + Vitamin D, Deficiency [...] [address] | [place] | [phone] | | [facility] | | [address] | | | - LABORATORY | | [...] + | [address] | [address] | [place] | [phone] | | [facility] | | [address] | | | - LABORATORY | | | | + + + + + Ferritin (04/28/2018 11:43 PST) + +-------+ + + + | Component | Value | Ref Range | Performed | Pathologist | | | | | At | Signature | + +-------+ + + + | FERRITIN | 9 (L) | 11 - 307 ng/mL | [facility] | | | | | | S[address]o [...] [address] | [place] | [phone] | | [facility] | | [address] | | | - LABORATORY | | [...] mL/min/1.73m2 | [facility] | | | [place] | | | MEDICAL | | | [...] [address] | [place] | [phone] | | [facility] | | [address] | | | - LABORATORY | | [...] +--------+ +---------+--------+ | MEDICARE | MEDICA | [id number] | 06/22/19 | [phone] | | Medica | | | RE | | 07-Pre | 5 | | re | | | PART A | | sent | | | | | | AND B | | | | | | + +--------+ +--------+ +---------+--------+ | [employer] | NW | [id number] | 02/21/19 | | | Indemn | [...] Person | Self | [birth year] | [address] | | | al/Fam | | 1941 | [phone] | [place] [address] | | | stew | | | 9 (Home) | | + +--------+ +--------+ + + Advance Directives Patient has advance care planning documents, and code status on file. For more information, please contact:[facility] [place] [address] + + + + + | Code [...]
--- OUTSIDE RECORDS SUMMARY | ~2018-07-06 | XMS | Encounter Summary ---
Demographics + + + | Address | [address] | | | [place] [address] | + + + | Home Phone | | + + + | Preferred Language | Unknown | + + + | Marital Status | | + + + | Restorationism Affiliation | Unknown | + + + | Race | Unknown | + + + | Ethnic Group | Unknown | + + + Author + + + | Author | [facility] | | | and [place] | + + + | Organization | [facility] | | | [...] Team Providers + +------+ + | Care Manager Infusion Name | Role | Phone | + +------+ + | Yuri Miner MD | PCP | | + +------+ + Reason for Visit + + + | Reason | Comments | + + + | CPAP Follow Up | | + + + Encounter Details +--------+---------+ + + + | Date | Type | Department | Care Team | Description | +--------+---------+ + + + | 05/22/ | Office | [facility] | Jimmy Olivera | YOVANNY (obstructive | | 2019 | Visit | SLEEP DISORDER [address] | [address] | sleep apnea) | | | | [address] [place] | [address] [place] | (Primary Dx) | | | | [place] [address] | [place] [address] | | | | | [phone] | [phone] | | | | | | | [...] + + + | Blood Pressure | 110/80 | 05/22/2018 100 PDT | + + + + | Pulse | 81 | 05/22/20181000 PDT | + + + + | Temperature | - | - | + + + + | Respiratory Rate | 16 | 05/22/20181000 PDT | + + + + | Oxygen Saturation | 97% | 05/22/20181000 PDT | + + + + | Inhaled Oxygen | - | - | | Concentration | | | + + + + | Weight | 95 kg (209 lb 7 oz) | 05/22/20181000 PDT | + + + + | Height | - | - | + + + + | Body Mass Index | 35.95 | 05/01/2018 1320 PDT | + + [...] documented as of this encounter Progress Notes Jimmy Olivera Jr., MD - 05/22/2018 1015 PDTThe patient comes in for follow-up after susana norris recently undergone diagnostic nocturnal polysomnography using a split-night protocol. I' ve reviewed the following study with her in detail: Split-Night Polysomnogram/Positive Airway Pressure Titration Report on Izzy Novoa [facility] on May 10, 2018. Clinical Information: Izzy Novoa is a 77 y.o. female who underwent nocturnal polysomn ography using a "Split-Night" Protocol on May 10, [address] Miner because of a past history of obstructive sleep apnea in a patient who is poorly adherent with positi ve airway pressure therapy. Technical Information: Please see technical data which is attached.. Definitions (The AASM Manual for the Scoring of Sleep and Associated Events, Version 2.5; 2 018): Apnea:There is a drop in the peak signal excursion by 90% or greater of pre-even t baseline using an oronasal thermal sensor (diagnostic study), PAP device flow (titration s tudy), or an alternative apnea sensor (diagnostic study); the duration of the 90% or greater drop in sensor signal is 10 seconds or longer. Obstructive Apnea: Event associated with continued or increased inspi ratory effort throughout the entire period of absent airflow. Central Apnea: Event associated with absent inspiratory effort throug hout the entire period of absent airflow. Mixed Apnea: Event associated with absent inspiratory effort in the i nitial portion of the event followed by resumption of inspiratory effort during the second p ortion of the event. Hypopnea: The peak signal excursions drop by greater than or equal to 30% of pre -event baseline using a recommended or alternative airflow sensor and the duration of the >= 30% drop in signal excursion is greater than or equal to 10 seconds and there is a greater than or equal to a 4% oxygen desaturation from pre-event baseline. Respiratory Event Related Arousal: A sequence of breaths lasting 10 seconds or l onger characterized by increasing respiratory effort or by flattening of the inspiratory por tion of the nasal pressure (diagnostic study) or PAP device flow (titration study) waveform leading to arousal from sleep when the sequence of breaths does not meet criteria for an occupational health and safety officer ea or hypopnea. The study was conducted in two parts. The first 135.5 minutes of study time was spent as a diagnostic study and the second 280 minutes was spent with the patient undergoing positive airway titration. DIAGNOSTIC PORTION OF THE EVENING Sleep Architecture: Lights out was recorded at 2245 hundred hours on May 10, 2018 and li ghts on was recorded at 0541 hundred hours on May 11, 2018. The latency to sleep onset was short at 2.5 minutes. The patient slept for 101 minutes out of 135.5 minutes of diagnostic study time resulting an a sleep efficiency that was low at 74.5 %. The following were the p ercentages of the various sleep stages recorded during the diagnostic portion of the evening : N1 15.8%, N2 67.8%, N3 3.5%, and REM 12.9. Sleep was severely fragmented; the Arousal Inde x was 70.1 during the diagnostic portion of the evening. Sleep in the following body positions were recorded during the diagnostic portion of the ev ening: Left lateral decubitus, right lateral decubitus, supine. Cardiopulmonary Monitoring: During the diagnostic portion of the evening, the heart rate av eraged in the upper 70s to lower 80s beats per minute. Moderate rate variability was noted. The rhythm was sinus. During the diagnostic portion of the evening, there were 4 obstructive apneas, 0 mixed apne as, 0 central apneas, 89 hypopneas, and 33 Respiratory Effort Related Arousals (RERA's). The Respiratory Disturbance Index (RDI) was elevated at 74.9; the Apnea-Hypopnea Index was elev ated at 55.2; the Apnea Index (AI) was 2.4. The respiratory events were not significantly sl eep stage dependent. The respiratory events were not significantly positional. The jennifer oxygen saturation was 71% and the patient spent 9 minutes with an oxygen saturati on of less than or equal to 90%. ETCO2 was not significantly elevated. Limb Movement Monitoring: There were 0 Periodic Limb Movements (PLMS Index of 0) of which 0 were associated with arousals; the PLMS Arousal Index was normal at 0 during the diagnostic portion of the evening. The night technologist at this point appropriately made a diagnosis of Obstructive Sleep Ap dontrell. The patient was awakened and positive airway pressure was instituted. TREATMENT PORTION OF THE EVENING: During the 280 minutes of treatment time, the patient slept for 224.5 minutes for a sleep e fficiency of 80.2 which was somewhat improved compared to the sleep efficiency seen during t he diagnostic portion of the night. Sleep architecture improved compared to the sleep crystal ecture during the diagnostic portion of the evening. The sleep efficiency was better and sl eep fragmentation was less. The patient was titrated to Positive Airway Pressure of 11cm although obstructive sleep occupational health and safety officer ea and oxygen desaturation was actually well controlled with CPAP pressures of 7 cm to 11 cm . The patient did require a small Elvia View Full Face Mask. Cardiopulmonary Monitoring: During the treatment portion of the evening, the heart rate ave raged in the low 70s beats per minute. Mild to moderate rate variability was noted. The rhy thm was sinus Limb Movement Monitoring: There were 29 Periodic Limb Movements (PLMS Index of 7.8) of whic h 13 were associated with arousals; the PLMS Arousal Index was normal at 3.5 during the leela tment portion of the evening. Interpretation: This Split-Night Polysomnogram is abnormal secondary to: Severe obstructive sleep apnea is diagnosed. This is associated with severe oxygen desatur ation as well as sleep fragmentation. CPAP in the 7-11 cm range appears to be required for control of obstructive breathing. Suggestions: 1. The principles of sleep hygiene should be reviewed with the patient. 2. Auto titrating CPAP 7-15 cm is advised with close careful clinical follow-up BP 110/80 | Pulse 81 | Resp 16 | Wt 95 kg (209 lb 7 oz) | SpO2 97% | BMI 35.95 kg/m A: YOVANNY: The patient continues to have significant obstructive sleep apnea. I have reviewed this with her. I've reviewed the mechanisms by which positive airway pressure is successfu l and helpful in treating obstructive apnea. I've also reviewed Medicare requirements that she actually has to wear the CPAP. She is in agreement with this. P: Resmed AirSense 10 autoset CPAP 7-15cm while sleeping is prescribed. F/u 2 days after getting CPAP with our Clinical Sleep Educator and our PAP Adherence Clinic . Today, 15 minutes was spent face to face with the patient; the majority of time was spent c camille regarding CPAP therapy of YOVANNY. documented in this encounter Plan of Treatment [...] | | | | | [place] [address] | | | | | | [phone] | | | | | | | | +--------+ + + + + | 07/20/ | Office | Sleep Medicine | Leighton Conde PA | | 2018 | Visit | | [address] | | | | | [place] | | | | | | [address] | | | | | | | | +--------+ + + + + | 09/04/ | Office | Pulmonology | Ariel Patiño, | | | 2018 | Visit | | MD [address] | | | | | | [place] | | | | | | [address] | | | | | | | | +--------+ + + + + | 10/19/ | Procedure | Physical Medicine | Talon Moran, | | | 2018 | visit | and Rehabilitation | MD [address] | | | | | | [place] | | | | | | [address] | | | | | | | | +--------+ + + + + | 11/01/ | Office | Urology | Arnol Koroma | | | 2018 | Visit | | MD Johnny Hurtado | | | | | | [place] | | | | | | [address] | | | | | | | | +--------+ + + + + documented as of this encounter Visit Diagnoses + + | Diagnosis | + + | YOVANNY (obstructive sleep apnea) - Primary Obstructive sleep apnea (adult) (pediatric) | + + documented in this encounter
--- OUTSIDE RECORDS SUMMARY | ~2018-07-06 | XMS | Encounter Summary ---
Demographics + + + | Address | [address] | | | [place] [address] | + + + | Home Phone | | + + + | Preferred Language | Unknown | + + + | Marital Status | | + + + | Sikhism Affiliation | Unknown | + + + | Race | Unknown | + + + | Ethnic Group | Unknown | + + + Author + + + | Author | [facility] | | | and [place] | + + + | Organization | [facility] | | [...] Team Providers + +------+ + | Care Count Team Member Name | Role | Phone | + [...] | | | | | pain | [address] | [facility] | | | | | Primary | [place], | [place], | | | | | osteoarthrit | [place] [address] | [place] | | | | | is of both | Phone: | [phone] | | | | | knees | [phone] | Phone: | | | | | | Fax: | [phone] | | | | | | [phone] | Fax: | | | | | | | [phone] | +--------+ + + + + + Evaluate & Treat (Routine) + + + + + + + | Status | Reason | Specialty | Diagnoses / | Referred By | Referred To | | | | | Procedures | Contact | Contact | + + + + + + + | Pending | Specialty | Physical | Diagnoses | Daen, | Talon Moran | | Review | Services | Medicine and | Bilateral | Talon Quarles MD | Kirsten Quarles MD [address] | | | Required | Rehabilitatio | chronic knee | [address] | | | | n | pain | [address] | [place], | | | | | Primary | [place], | [place] [address] | | | | | osteoarthrit | [place] [address] | Phone: | | | | | is of both | Phone: | [phone] | | | | | knees | [phone] | Fax: | | | | | Procedures | Fax: | [phone] | | | | | DOS 10/19/18 | [phone] | | + + + + + [...] PHYSIATRY [address] | MD [address] | knee pain (Primary | | | | [place], | [place], [place] | Dx); Primary | | | | [place] [address] | [address] | osteoarthritis of | | | | [phone] | | both knees | +--------+---------+ + [...] encounter Patient Instructions Patient Instructions Flores Perez, Leaf Size Picker - 06/19/2018 8:20 PDTTry over the counter [...] MD - 0820 PDT Talon Moran MD [address] [place] [address], [address] [place], [place] [id number] FAX: PHYSICAL MEDICINE AND REHABILITATION H&P CHIEF [...] has no apparent deficits with short or long-term memory. The cranial nerves appear grossly intact. [...] | | | | | [place] [address] | | | | | | [phone] | | | | | | | | +--------+ + + + + | 07/20/ | Office | Sleep Medicine | Leighton Conde PA | | | 2018 | Visit | | [address] | | | | | | [place] | | | | | | [address] | | | | | | | | +--------+ + + + + | 09/04/ | Office | Pulmonology | Ariel Patiño, | | | 2018 | Visit | | MD Michael [address] | | | | | | [place] | | | | | | [address] | | | | | | | | +--------+ + + + + | 10/19/ | Procedure | Physical Medicine | Talon Moran, | | | 2018 | visit | and Rehabilitation | [address] | | | | | | [place] | | | | | | [address] | | | | | | | | +--------+ + + + + | 11/01/ | Office | Urology | Arnol Koroma | | | 2018 | Visit | | MD Johnny [address]urt[address] | | | | | | [place] | | | | | | [address] | | | | | | | | +--------+ + + + + + +--------+ + + | Name | Priori | Associated Diagnoses | Order Schedule | | | ty | | | + +--------+ + + | * [facility] - [facility] | Routin | Bilateral chronic | Ordered: 06/19/2018 | | Referral | e | knee pain Primary | | | | | osteoarthritis of | | | | | both knees | | + +--------+ + + | * [facility] | Routin | Bilateral [...]
--- OUTSIDE RECORDS SUMMARY | ~2018-07-06 | XMS | Encounter Summary ---
Demographics + + + | Address | [address] | | | [place] [address] | + + + | Home Phone | | + + + | Preferred Language | Unknown | + + + | Marital Status | | + + + | Anabaptist Affiliation | Unknown | + + + | Race | Unknown | + + + | Ethnic Group | Unknown | + + + Author + + + | Author | [facility] | | | and [place] | + + + | Organization | [facility] | | | [...] Team Providers + +------+ + | Care Basket Machine Operator Name | Role | Phone | [...] | | | | | pain | [address] | [facility] | | | | | Primary | [place], | [place], | | | | | osteoarthrit | [place] [address] | [place] | | | | | is of both | Phone: | [phone] | | | | | knees | [phone] | Phone: | | | | | | Fax: | [phone] | | | | | | [phone] | Fax: | | | | | | | [phone] | +--------+ + + + + + Encounter Details +--------+---------+ + + + | Date | Type | Department | Care Team | Description | +--------+---------+ + + + | 07/03/ | Office | [facility] | Talon Moran, | Primary | | 2018 | Visit | ORTHOPEDIC SURGERY | [address] | osteoarthritis of | | | | [address] | [place], [place] | right knee (Primary | | | | [place], [place] | [address] | Dx); Primary | | | | [address] | | osteoarthritis of | | | | [phone] | Arnol Jimenez | left knee; Chronic | | | | | [address] | pain of both knees | | | | | [address] [facility] | | | | | | [place] [address] | | | | | | [phone] | | | | | | | [...] be different f rom the original. ORTHOPEDICS [address] [place] [id number] FAX: [phone] Name: Izzy Novoa : 1940 Age: 77 [...] of great toe of left foot Cancer ([facility]) Chronic bilateral low back pain with bilateral sciatica Chronic kidney disease Constipation COPD (chronic obstructive pulmonary disease) ([facility]) 2012 KELLEY (dyspnea on exertion) DVT (deep venous thrombosis) ([facility]) 2014, 2016 On coumadin Essential hypertension Family [...] Type 2 diabetes mellitus with kidney complication ([facility]) Past Surgical History: Procedure Laterality Date APPENDECTOMY 1971 BACK SURGERY 1981,1989 BLADDER SURGERY 2009 BLADDER SUSPENSION 2014 BLEPHAROSPASM BREAST RECONSTRUCTION Bilateral COLONOSCOPY N/A 09/17/2016 Procedure: COLONOSCOPY; Surgeon: Yuri Pizano MD; Location: [facility] MEDICAL PROCEDURE UNIT HERNIA REPAIR 2013 HYSTERECTOMY 1987 LUMBAR SPINE SURGERY 1991 x5;[place] OR LUMBAR SPINE SURGERY N/A 06/27/2017 Procedure: L3-4 Lateral Anterior Interbody Fusion; Surgeon: Justino Garcia DO; Location : [facility] MAIN OR MASTECTOMY MASTECTOMY, MODIFIED RADICAL 2000 Cancer MYRINGOTOMY Bilateral NASAL SEPTUM SURGERY Bilateral 04/26/2017 Procedure: Septoplasty, Inferior Turbinoplasty; Surgeon: Talon Moran MD; Location: [facility] MAIN OR SKIN CANCER EXCISION Melanoma SKIN CANCER EXCISION STOMACH SURGERY 2009 GIOVANNY AND BSO 1978 Cancer TONSILLECTOMY AND ADENOIDECTOMY 1970 TYMPANOSTOMY TUBE PLACEMENT Bilateral UPPER GASTROINTESTINAL ENDOSCOPY N/A 09/17/2016 Procedure: EGD; Surgeon: Yuri Pizano MD; Location: [facility] MEDICAL PROCEDURE UNIT UPPER GASTROINTESTINAL ENDOSCOPY N/A 07/27/2017 Procedure: EGD; Surgeon: Juanito Fisher MD; Location: [facility] MEDICAL PROCEDURE UNIT Allergies Allergen Reactions Cimetidine [...] patellofemoral compartments with osteophyte formation and essentially lkhx-tb-ubog apposition. This appears to be the greatest [...] history and physical was dictated using the [employer] voice recognition system. There may be minor [...] [address] | | | | | | [address] | | | | | | [place] [address] | | | | | | [phone] | | | | | | | | +--------+ + + + + | 07/20/ | Office | Sleep Medicine | Leighton Conde PA | | | 2018 | Visit | | [address] | | | | | | [place] | | | | | | [address] | | | | | | | | +--------+ + + + + | 09/04/ | Office | Pulmonology | Ariel Patiño, | | | 2018 | Visit | | [address] | | | | | | [place] | | | | | | [address] | | | | | | | | +--------+ + + + + | 10/19/ | Procedure | Physical Medicine | Talon Moran, | | | 2018 | visit | and Rehabilitation | [address] | | | | | | [place] | | | | | | [address] | | | | | | | | +--------+ + + + + | 11/01/ | Office | Urology | Arnol Koroma | | | 2018 | Visit | | MD [address]urt[address] | | | | | | [place] | | | | | | [address] | | | | | | | [...]
--- OUTSIDE RECORDS SUMMARY | ~2018-07-06 | XMS | Encounter Summary ---
Demographics + + + | Address | [address] | | | [place] [address] | + + + | Home Phone | | + + + | Preferred Language | Unknown | + + + | Marital Status | | + + + | Jewish Affiliation | Unknown | + + + | Race | Unknown | + + + | Ethnic Group | Unknown | + + + Author + + + | Author | [facility] | | | and [place] | + + + | Organization | [facility] | | | [...] Team Providers + +------+ + | Care Art Specialist Name | Role | Phone | + [...] | History of | Jimmy Chin | [place] [address] | | | Required | | iron | MD [address] | [place] | | | | | deficiency | [place] | [place], | | | | | Y[place]NY | [place] | [place] [address] | | | | | (obstructive | [place], [place] | Phone: | | | | | sleep | [address] | [phone] | | | | | apnea) | Phone: | Fax: | | | | | Periodic | [phone] | [phone] | | | | | limb | Fax: | | | | | | movements of | [phone] | | | | | | sleep | | | | | | | Procedures | | | | | | | IA POLYSOM | | | | | | | 6/>YRS SLEEP | | | | | | | W/CPAP 4/> | | | | | | | ADDL PINKY | | | | | | | ATTND [place] | | | | | | | [...] + + | 04/28/ | [facility] | Jimmy Olivera | YOVANNY (obstructive | | 2018 | Visit | SLEEP DISORDER [address] | MD [address] | sleep apnea) | | | | [address] [place] | [address] [place] | (Primary Dx); | | | | [place] [address] | [place] [address] | Restless legs; | | | | [phone] | [phone] | Periodic limb | | | | [...] when you re asleep. Date Last Reviewed: 09/21/201619991513-2774 [employer]. [address] [place] [address]. All righ ts reserved. This information is [...] types of CPAP. Your doctor or CPAP donor services technician will help you decide whic h [...] sleep stage, and snoring. Date Last Reviewed: 09/21/201619997310-9619 [employer]. [address] [place] [address], [place] [id number]. All righ ts reserved. This information is [...] how well you sleep. Date Last Reviewed: 10/22/201619999356-0610 [employer]. [address] [place] [address]. All righ ts reserved. This information is not intended as a substitute for professional medical care. Always follow your healthcare professional's instructions. documented in this encounter Progress Notes Jimmy Olivera Jr., MD - 04/28/2018 1000 PSTFormatting of this note might be different fr om the original. [facility] [place] [address] Ref: Yuri Miner MD CC: Chief Complaint Patient presents with Consult Snoring History of the Present Illness:This is a 77 year old female who is referred for sleep medic ine consultation by Dr. Riddhi Miner because of YOVANNY. Other significant medical issues include (s ee HPI - multiple medical issues). The patient's records ([facility] EMR, Dr. Miner's note) are r eviewed. The patient is interviewed and examined. Diagnostic nocturnal polysomnography usin g a split-night technique was performed in this patient on July 31, 2014 at the [facility] and [place], [place]. This demonstrated a pretreatment Apnea Hypopnea [...] CPAP pressure is 11.3 cm. The calculated Solution Sales Senior Executive ea Hypopnea Index index while wearing CPAP [...] soc ializes very little (she lives on [address]). She gets out more in the summer - she do esn't know if she sleeps better in the summer. She denies cataplexy. She consumes at least 5 cups of coffee every day. She rarely consumes other sources of caffeine. Past Medical History: has a past medical history of Adverse effect of anesthesia; Bunion o f great toe of left foot; Cancer ([facility]); Chronic bilateral low back pain with bilateral sciat ica; Chronic kidney disease; Constipation; COPD (chronic obstructive pulmonary disease) ([facility] ) (2012); KELLEY (dyspnea on exertion); DVT (deep venous thrombosis) ([facility]) (2014, 2016); Essent ial hypertension; Family history [...] 2 diabetes mellitus with kidney complication ([facility]). has a past surgical history that includes [...] Procedure: COLONOSCOPY; Surgeon: Yuri Pizano MD; Location: [facility] MEDICAL PROCEDURE UNIT HERNIA REPAIR 2013 HYSTERECTOMY 1987 LUMBAR SPINE SURGERY 1992 x5;[place] OR LUMBAR SPINE SURGERY N/A 06/27/2017 Procedure: L3-4 Lateral Anterior Interbody Fusion; Surgeon: Justino Garcia DO; Location : [facility] MAIN OR MASTECTOMY MASTECTOMY, MODIFIED RADICAL 2000 Cancer MYRINGOTOMY Bilateral NASAL SEPTUM SURGERY Bilateral 04/26/2017 Procedure: Septoplasty, Inferior Turbinoplasty; Surgeon: Talon Moran MD; Location: [facility] MAIN OR SKIN CANCER EXCISION Melanoma SKIN CANCER EXCISION STOMACH SURGERY 2009 NIRMALA AND BSO 1978 Cancer TONSILLECTOMY AND ADENOIDECTOMY 1970 TYMPANOSTOMY TUBE PLACEMENT Bilateral UPPER GASTROINTESTINAL ENDOSCOPY N/A 09/17/2016 Procedure: EGD; Surgeon: Yuri Pizano MD; Location: [facility] MEDICAL PROCEDURE UNIT UPPER GASTROINTESTINAL ENDOSCOPY N/A 07/27/2017 Procedure: EGD; Surgeon: Juanito Fisher MD; Location: [facility] MEDICAL PROCEDURE UNIT Immunization History Administered Date(s) [...] Review: The score of 14 on the [place] Sleepiness scale suggests significant recognized excessive daytime [...] to suggest we bring her back into [facility] [place] for repeat split night study (Medicare will [...] Parts of this note were dictated using [employer] voice recognition software. Occasional wrong - word [...] Insomnia Severity Index Insomnia Severity Index 16 [place] Sleepiness Scale 1. Sitting and reading 2 [...] | | | | | [place] [address] | | | | | | [phone] | | | | | | | | +--------+ + + + + | 07/20/ | Office | Sleep Medicine | Leighton Conde PA | | | 2018 | Visit | | [address] | | | | | | [place] | | | | | | [address] | | | | | | | | +--------+ + + + + | 09/04/ | Office | Pulmonology | Ariel Patiño, | | | 2018 | Visit | | MD [address] | | | | | | [place] | | | | | | [address] | | | | | | | | +--------+ + + + + | 10/19/ | Procedure | Physical Medicine | Talon Moran, | | | 2018 | visit | and Rehabilitation | [address] | | | | | | [place] | | | | | | [address] | | | | | | | | +--------+ + + + + | 11/01/ | Office | Urology | Arnol Koroma | | | 2018 | Visit | | MD Johnny Hurtado | | | | | | [place] | | | | | | [address] | | | | | | | | +--------+ + + + + + +--------+ + + | Name | Priori | Associated Diagnoses | Order Schedule | | | ty | | | + +--------+ + + | * [facility] Sleep Center - AMB Referral | Routin [...] [address] | [place] | [phone] | | [facility] | | [address] | | | - LABORATORY | | [...]
--- OUTSIDE RECORDS SUMMARY | ~2018-07-06 | XMS | Encounter Summary ---
Demographics + + + | Address | [address] | | | [place] [address] | + + + | Home Phone | | + + + | Preferred Language | Unknown | + + + | Marital Status | Single | + + + | Islam Affiliation | PRO | + + + | Race | White | + + + | Ethnic Group | Not or | + + + Author + + + | Organization | Unknown | + + + | Address | Unknown | + + + | Phone | Unavailable | + + + Care Team Providers + +------+ + | Care Range Conservationist Name | Role | Phone | + +------+ + PCP | Unavailable | + +------+ + Encounter Details +--------+ + + + + | Date | Type | Department | Care Team | Description | +--------+ + + + + | 06/28/ | Results | | Other, Faculty | | | 2001 | Only | | [phone] | | +--------+ + + + + [...] | + +--------+ + + + | DERMATOPATHOLOGY(WET | Routin | 06/28/2001 | | Results for this | | [facility]) | e | | | procedure are in the | | | | | | results section. | + +--------+ + + + documented in this encounter Results DERMATOPATHOLOGY(WET [facility]) (06/28/2001) + + + + + + | Component | Value | Ref Range | Performed | Pathologist | | | | | At | Signature | + + + + + + | DERMATOPATH | SOURCE OF SPECIMEN: | | | | | OLOGY(WET | FIRST TISSUE LEVEL | | | | | MNT) | [place] [id number] CLINICAL | | | | | | DESCRIPTION:5mm punch, | | | | | | Lt. upper arm; faintly | | | | | | hyperpigmented papule | | | | | | (growing). Pt.thinks | | | | | | it was frozen in the | | | | | | past. has a Hx of | | | | | | melanoma elsewhere; IDN, | | | | | | R/Omelanoma GROSS | | | | | | DESCRIPTION:Left upper | | | | | | arm, punch, 0.5 x 0.8 | | | | | | cm, inked, bisected. | | | | | | MICROSCOPIC | | | | | | DESCRIPTION:There are | | | | | | buggy runner nests, cords, | | | | | | and strands of uniform | | | | | | nevus cells withinthe | | | | | | dermis. 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 There isno | | | | | | evidence of melanoma. | | | | | | CRW/jyiRendering | | | | | | | | | | | | Diagnostician: Margarita | | | | | | dillon Hillman Jr., | | | | | | AtaPathologistRuchii | | | | | | lara Signed | | | | | | 07/03/2001Comment: | | | | | | SOURCE OF SPECIMEN: | | | | | | FIRST TISSUE LEVEL IV | | | | | | [id number] | | | | + + + + + + + + | Specimen | + + | | + + + + + | Narrative | Performed At | + + + | Ordered by Lety Sunshine | | + + + + + + + + | Performing | Address | City/State/Zipcode | Phone Number | | Organization | | | | + + + + + | [facility] | [address], [address] | [place] [address] | | | DERMATOPATHOLOGY | [address] | | | + + + + + documented in this encounter Visit Diagnoses Not on filedocumented in this encounter"
--- OUTSIDE RECORDS SUMMARY | ~2018-07-06 | XMS | Encounter Summary ---
Demographics + + + | Address | [address] | | | [place] [address] | + + + | Home Phone | | + + + | Preferred Language | Unknown | + + + | Marital Status | | + + + | Confucianism Affiliation | Unknown | + + + | Race | Unknown | + + + | Ethnic Group | Unknown | + + + Author + + + | Author | [facility] | | | and [place] | + + + | Organization | [facility] | | [...] Team Providers + +------+ + | Care Brick Mason Name | Role | Phone | + [...] + | 06/05/ | Clinical | [facility] | Jimmy Olivera | YOVANNY (obstructive | | 2019 | Support | SLEEP DISORDER [address] | MD [address] | sleep apnea) | | | | [address] [place] | [address] [place] | (Primary Dx) | | | | [place] [address] | [place] [address] | | | | | [phone] | [phone] | | | | | | | [...] . PAP was ordered on 05/22/2018 from [facility]. Patient has been using PAP for 13 [...] wear PAP at all times during s [facility] Plan for continuous PAP use: 1. [...] | | | | | [place] [address] | | | | | | [phone] | | | | | | | | +--------+ + + + + | 07/20/ | Office | Sleep Medicine | Leighton Conde PA | | | 2018 | Visit | | [address] | | | | | | [place] | | | | | | [address] | | | | | | | | +--------+ + + + + | 09/04/ | Office | Pulmonology | Ariel Patiño, | | | 2018 | Visit | | MD [address] | | | | | | [place] | | | | | | [address] | | | | | | | | +--------+ + + + + | 10/19/ | Procedure | Physical Medicine | Talon Moran, | | | 2018 | visit | and Rehabilitation | [address] | | | | | | [place] | | | | | | [address] | | | | | | | | +--------+ + + + + | 11/01/ | Office | Urology | Arnol Koroma | | | 2019 | Visit | | MD Johnny Hurtado | | | | | | [facility] [place] | | | | | | [address] | | | | | | | | +--------+ + + + + documented as of this encounter Visit Diagnoses + + | Diagnosis | + + | YOVANNY (obstructive sleep apnea) - Primary Obstructive sleep apnea (adult) (pediatric) | + + documented in this encounter
--- OUTSIDE RECORDS SUMMARY | ~2018-07-06 | XMS | Encounter Summary ---
Demographics + + + | Address | [address] | | | [place] [address] | + + + | Home Phone | | + + + | Preferred Language | Unknown | + + + | Marital Status | Single | + + + | Shinto Affiliation | PRO | + + + | Race | White | + + + | Ethnic Group | Not or | + + + Author + + + | Organization | Unknown | + + + | Address | Unknown | + + + | Phone | Unavailable | + + + Care Team Providers + +------+ + | Care Traffic Investigator Name | Role | Phone | + +------+ + PCP | Unavailable | + +------+ + Encounter Details +--------+ + + + + | Date | Type | Department | Care Team | Description | +--------+ + + + + | 06/28/ | Results | | Other, Faculty | | | 2001 | Only | | [phone] | | +--------+ + + + + [...] | | | | MNT) | [place] [id number] CLINICAL | | | | | | [...] are | | | | | | children's minister nests, cords, | | | | | [...] [place] | | | | | | [address] | | | | + + + [...] + + | [facility] | [address], [address] | [place] [address] | | | DERMATOPATHOLOGY | [address] | | | + + + + + documented in this encounter Visit Diagnoses Not on filedocumented in this encounter"
--- OUTSIDE RECORDS SUMMARY | ~2018-07-06 | XMS | Encounter Summary ---
Demographics + + + | Address | [address] | | | [place] [address] | + + + | Home Phone | | + + + | Preferred Language | Unknown | + + + | Marital Status | | + + + | Quaker Affiliation | Unknown | + + + | Race | Unknown | + + + | Ethnic Group | Unknown | + + + Author + + + | Author | [facility] | | | and [place] | + + + | Organization | [facility] | | | [...] Team Providers + +------+ + | Care Launderette Attendant Name | Role | Phone | + [...] sleep apnea) | | | | [address] [place] | [address] [place] | (Primary Dx) | | | | [place] [address] | [place] [address] | | | | | [phone] | [phone] | | | | | | | [...] Airway Pressure Titration Report on Izzy Novoa [facility] on May 10, 2018. Clinical Information: [...] breaths does not meet criteria for an car storer ea or hypopnea. The study was conducted [...] Airway Pressure of 11cm although obstructive sleep car storer ea and oxygen desaturation was actually well [...] | | | | | [place] [address] | | | | | | [phone] | | | | | | | | +--------+ + + + + | 07/20/ | Office | Sleep Medicine | Leighton Conde PA | | 2018 | Visit | | [address] | | | | | [place] | | | | | | [address] | | | | | | | | +--------+ + + + + | 09/04/ | Office | Pulmonology | Ariel Patiño, | | | 2018 | Visit | | MD [address] | | | | | | [place] | | | | | | [address] | | | | | | | | +--------+ + + + + | 10/19/ | Procedure | Physical Medicine | Talon Moran, | | | 2018 | visit | and Rehabilitation | [address] | | | | | | [place] | | | | | | [address] | | | | | | | | +--------+ + + + + | 11/01/ | Office | Urology | Arnol Koroma | | | 2018 | Visit | | MD Johnny Hurtado | | | | | | [place] | | | | | | [address] | | | | | | | | +--------+ + + + + documented as of this encounter Visit Diagnoses + + | Diagnosis | + + | YOVANNY (obstructive sleep apnea) - Primary Obstructive sleep apnea (adult) (pediatric) | + + documented in this encounter
--- OUTSIDE RECORDS SUMMARY | ~2018-07-06 | XMS | Encounter Summary ---
Demographics + + + | Address | [address] | | | [place] [address] | + + + | Home Phone | | + + + | Preferred Language | Unknown | + + + | Marital Status | | + + + | Anglican Affiliation | Unknown | + + + | Race | Unknown | + + + | Ethnic Group | Unknown | + + + Author + + + | Author | [facility] | | | and [place] | + + + | Organization | [facility] | | | [...] Team Providers + +------+ + | Care Prize Jacker Name | Role | Phone | + [...] [address] | | | | | [place], [place] | [place] [address] | | | | | [address] | [phone] | | | | | [phone] | | | +--------+ + + + [...] | | | | | [place] [address] | | | | | | [phone] | | | | | | | | +--------+ + + + + | 07/20/ | Office | Sleep Medicine | Leighton Conde PA | | | 2018 | Visit | | [address] | | | | | | [place] | | | | | | [address] | | | | | | | | +--------+ + + + + | 09/04/ | Office | Pulmonology | Ariel Patiño, | | | 2018 | Visit | | [address] | | | | | | [place] | | | | | | [address] | | | | | | | | +--------+ + + + + | 10/19/ | Procedure | Physical Medicine | Talon Moran, | | | 2018 | visit | and Rehabilitation | [address] | | | | | | [place] | | | | | | [address] | | | | | | | | +--------+ + + + + | 11/01/ | Office | Urology | Arnol Koroma | | | 2019 | Visit | | MD Bryant [facility] | | | | | | [place] | | | | | | [address] | | | | | | | | +--------+ + + + + documented as of this encounter Visit Diagnoses Not on filedocumented in this encounter"
--- OUTSIDE RECORDS SUMMARY | ~2018-07-06 | XMS | Encounter Summary ---
Demographics + + + | Address | [address] | | | [place] [address] | + + + | Home Phone | | + + + | Preferred Language | Unknown | + + + | Marital Status | | + + + | Anabaptism Affiliation | Unknown | + + + | Race | Unknown | + + + | Ethnic Group | Unknown | + + + Author + + + | Author | [facility] | | | and [place] | + + + | Organization | [facility] | | | [...] Team Providers + +------+ + | Care Operation Research Analyst Name | Role | Phone | + +------+ + | Yuri Miner MD | PCP | | + +------+ + Encounter Details +--------+ + + + + | Date | Type | Department | Care Team | Description | +--------+ + + + + | 07/03/ | Orders Only | [facility] | Arnol Jimenez | Pain in both knees, | | 2018 | | ORTHOPEDIC SURGERY | DAR[address] | unspecified | | | | [address] | Michael Peguero | chronicity (Primary | | | | [place] | [place] [address] | Dx) | | | | [address] | [phone] | | | | | [phone] | | | +--------+ + + + [...] | | | | | [place] [address] | | | | | | [phone] | | | | | | | | +--------+ + + + + | 07/20/ | Office | Sleep Medicine | Leighton Conde PA | | | 2018 | Visit | | [address] | | | | | | [place] | | | | | | [address] | | | | | | | | +--------+ + + + + | 09/04/ | Office | Pulmonology | Ariel Patiño, | | | 2018 | Visit | | MD Michael [address] | | | | | | [place] | | | | | | [address] | | | | | | | | +--------+ + + + + | 10/19/ | Procedure | Physical Medicine | Talon Moran, | | | 2018 | visit | and Rehabilitation | [address] | | | | | | [place] | | | | | | [address] | | | | | | | | +--------+ + + + + | Office | Urology | Arnol Koroma | | | 2018 | Visit | | MD Bryant [address] [place] [address] | | | | | | [place], [place] | | | | | | [address] | | | | | | | [...]
--- OUTSIDE RECORDS SUMMARY | ~2018-07-06 | XMS | Encounter Summary ---
Demographics + + + | Address | [address] | | | [place] [address] | + + + | Home Phone | | + + + | Preferred Language | Unknown | + + + | Marital Status | | + + + | Islam Affiliation | Unknown | + + + [...] Team Providers + +------+ + | Care Salesperson Used Cars Name | Role | Phone | + [...] | [address] | [address], [place] | | | | | [place], [place] | [address] [place] | | | | | [address] | [address] | | | | | [phone] | | | +--------+ + + + [...] | | | | | [place] [address] | | | | | | [phone] | | | | | | | | +--------+ + + + + | 07/20/ | Office | Sleep Medicine | Leighton Conde PA | | | 2018 | Visit | | [address] | | | | | | [place] | | | | | | [address] | | | | | | | | +--------+ + + + + | 09/04/ | Office | Pulmonology | Ariel Patiño, | | | 2018 | Visit | | MD [address] | | | | | | [place] | | | | | | [address] | | | | | | | | +--------+ + + + + | 10/19/ | Procedure | Physical Medicine | Talon Moran, | | | 2018 | visit | and Rehabilitation | [address] | | | | | | [place] | | | | | | [address] | | | | | | | | +--------+ + + + + | 11/01/ | Office | Urology | Arnol Koroma | | | 2019 | Visit | | MD Johnny Hurtado | | | | | | [place] | | | | | | [address] | | | | | | | | +--------+ + + + + documented as of this encounter Visit Diagnoses Not on filedocumented in this encounter"
--- OUTSIDE RECORDS SUMMARY | ~2018-07-06 | XMS | Encounter Summary ---
Demographics + + + | Address | [address] | | | [place] [address] | + + + | Home Phone | | + + + | Preferred Language | Unknown | + + + | Marital Status | | + + + | Mosque Affiliation | Unknown | + + + | Race | Unknown | + + + | Ethnic Group | Unknown | + + + Author + + + | Author | [facility] | | | and [place] | + + + | Organization | [facility] | [...] Team Providers + +------+ + | Care Motor Vehicles Inspector Name | Role | Phone | + +------+ + | Yuri Miner MD | PCP | | + +------+ + Encounter Details +--------+ + + + + | Date | Type | Department | Care Team | Description | +--------+ + + + + | 07/03/ | Hospital | [facility] | Arnol Jimenez | Pain in both knees, | | 2019 | Encounter | [facility] | DAR[address] | unspecified | | | | [address] | [place] | chronicity | | | | [place] | [place] [address] | | | | | [address] | [phone] | | | | | [phone] | | | +--------+ + + + [...] | | | | | [place] [address] | | | | | | [phone] | | | | | | | | +--------+ + + + + | 07/20/ | Office | Sleep Medicine | Leighton Conde PA | | | 2018 | Visit | | [address] | | | | | | [place] | | | | | | [address] | | | | | | | | +--------+ + + + + | 09/04/ | Office | Pulmonology | Ariel Patiño, | | | 2018 | Visit | | MD Michael [address] | | | | | | [place] | | | | | | [address] | | | | | | | | +--------+ + + + + | 10/19/ | Procedure | Physical Medicine | Talon Moran, | | | 2018 | visit | and Rehabilitation | [address] | | | | | | [place] | | | | | | [address] | | | | | | | | +--------+ + + + + | 11/01/ | Office | Urology | Arnol Koroma | | | 2018 | Visit | | MD Bryant [address] | | | | | | [place], [place] | | | | | | [address] | | | | | | | [...]
[2018-07-06] MEDS ORDERED: XARELTO20 MG PO (02:03)
[2018-07-06] MEDS ORDERED: FUROSEMIDE40 MG PO (02:23)
[2018-07-06] MEDS ORDERED: LOSARTAN POTASS50 MG PO (02:24)
[2018-07-06] MEDS ORDERED: OMEPRAZOLE20 MG PO (02:25)
[2018-07-06] MEDS ORDERED: OXYBUTYNIN CHLO10 MG PO (02:25)
--- NOTE | 2018-07-06 15:04 | EKG ---
[facility] [address] [facility] [address] [place], [place] [address] Signed Sinus tachycardia Otherwise normal ECG When compared with ECG of 12-NOV-2016 22:51, Nonspecific T wave abnormality no longer evident in Anterior leads Confirmed by CHI DREW DO ([id number]) on 07/06/2018 3:04:40 PM Electronically Signed By: CHI DREW DO 07/06/18 1504 PATIENT NAME: DAVID GUTIERREZ Electrocardiogram DATE OF : 42 PHYSICIAN: CHI DREW DO REPORT #: [id number] REPORT IS CONFIDENTIAL AND NOT TO BE RELEASED WITHOUT AUTHORIZATION
== END 2018-07-06 04:10 | disposition home or self-care (01) ==
LOC: ED 01:47
DX: J44.1 Chronic obstructive pulmonary disease with (acute) exacerbation (principal); R06.02 Shortness of breath; I10 Essential (primary) hypertension; E11.9 Type 2 diabetes mellitus without complications; Z85.3 Personal history of malignant neoplasm of breast; Z90.710 Acquired absence of both cervix and uterus; Z90.49 Acquired absence of other specified parts of digestive tract; Z90.89 Acquired absence of other organs; Z87.891 Personal history of nicotine dependence; Z88.8 Allergy status to other drugs, medicaments and biological substances; Z79.84 Long term (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 of oral hypoglycemic drugs; Z79.899 Other long term (current) drug therapy
CPT/HCPCS: 71046; 80053; 83735; 83880; 84484; 85025; 93005; 93010; 94640; 96374; 99285-25; J2930

== ENCOUNTER 2019-11-28 16:20 | Emergency (ER) | payer MEDICARE, OTHER ==
[~2019-11-28] VITALS: Ht 160 cm; Wt 96.2 kg
[~2019-11-28 16:20] MED LIST changes: +GABAPENTIN300 MG PO; +LOSARTAN POTASS50 MG PO; +MECLIZINE HCL25 MG PO; +MULTI-VITAMIN1 EACH PO; +OMEPRAZOLE20 MG PO; +OXYBUTYNIN CHLO10 MG PO; +TRAVATAN Z5 ML OPTH; +VITAMIN D250000 UNIT PO; +XARELTO20 MG PO
--- OUTSIDE RECORDS SUMMARY | 2019-11-28 16:22 | XMS ---
PreManage Notification: DAVID GUTIERREZ Security Psych Coordinator Events No recent Security Events currently on file CRITERIA MET - History of Sepsis Dx - PDMP CARE PROVIDERS FREDDY [facility] Current PHONE: [phone] Antonieta has no Care Guidelines for this patient. ERafal VISIT COUNT (12 MO.) 1 JIA David TOTAL 1 NOTE: Visits indicate total known visits. ED/UCC VISIT TRACKING (12 MO.) 11/28/2019 16:21 [facility] [place] TYPE: Emergency COMPLAINT: - SOB, DIZZINESS INPATIENT VISIT TRACKING (12 MO.) No inpatient visits to display in this time frame [id number]
[2019-11-28] MEDS ORDERED: MECLIZINE HCL25 MG PO (19:21)
[2019-11-28] MEDS ORDERED: SUDOGEST30 MG PO (19:21)
--- NOTE | 2019-11-29 09:17 | EKG ---
[facility] [address] [place] [address] Signed Poor data quality, interpretation may be adversely affected Normal sinus rhythm Cannot rule out Inferior infarct , age undetermined Abnormal ECG When compared with ECG of 06-JUL-2018 01:54, Nonspecific T wave abnormality now evident in Lateral leads Confirmed by LY MIGUEL MD ([id number]) on 11/29/2019 9:17:20 AM Electronically Signed By: LY MIGUEL MD 11/29/19 0917 PATIENT NAME: DAVID GUTIERREZ Electrocardiogram DATE OF : 42 PHYSICIAN: LY MIGUEL MD REPORT #: [id number] REPORT IS CONFIDENTIAL AND NOT TO BE RELEASED WITHOUT AUTHORIZATION
== END 2019-11-28 19:00 | disposition home or self-care (01) ==
LOC: ED 16:20
DX: H83.03 Labyrinthitis, bilateral (principal); I10 Essential (primary) hypertension; J44.9 Chronic obstructive pulmonary disease, unspecified; E11.9 Type 2 diabetes mellitus without complications; Z85.3 Personal history of malignant neoplasm of breast; Z88.8 Allergy status to other drugs, medicaments and biological substances; Z79.899 Other long term (current) drug therapy; Z79.84 Long term (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 of oral hypoglycemic drugs
CPT/HCPCS: 70450; 71045; 80053; 83735; 83880; 84484; 85025; 93005; 93010; 99285-25; J1100

== ENCOUNTER 2019-12-07 19:02 | Emergency (ER) | payer MEDICARE, OTHER ==
[~2019-12-07] VITALS: Ht 160 cm; Wt 102.1 kg
[~2019-12-07 19:02] MED LIST changes: +SUDOGEST30 MG PO
--- OUTSIDE RECORDS SUMMARY | 2019-12-07 19:04 | XMS ---
PreManage Notification: DAVID GUTIERREZ Security Manager Of Planning Events No recent Security Events currently on file CRITERIA MET - History of Sepsis Dx - PDMP - [facility] - 2 Visits in 30 Days CARE PROVIDERS MARIELA GARCIA [facility] 11/29/2019-Current PHONE: [phone] MAGGIE HAYES [facility] Current PHONE: [phone] Antonieta has no Care Guidelines for this patient. ERafal VISIT COUNT (12 MO.) 2 [facility] TOTAL 2 NOTE: Visits indicate total known visits. ED/UCC VISIT TRACKING (12 MO.) 12/07/2019 19:03 [facility] [place] TYPE: Emergency COMPLAINT: - FALL/FOOT INJ 11/28/2019 16:21 [facility] [place] TYPE: Emergency COMPLAINT: - SOB, DIZZINESS DIAGNOSES: - Shortness of breath - Type 2 diabetes mellitus without complications - Allergy status to other drugs, medicaments and biological sub - Essential (primary) hypertension - nursing home (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 of oral hypoglycemic drugs - Other ocean transportation intermediary (current) drug therapy - Personal history of malignant neoplasm of breast - Chronic obstructive pulmonary disease, unspecified - Labyrinthitis, bilateral INPATIENT VISIT TRACKING (12 MO.) No inpatient visits to display in this time frame [id number]
[2019-12-07] MEDS ORDERED: LEVALBUTER0.63 MG/3 INH (19:38)
== END 2019-12-07 20:57 | disposition home or self-care (01) ==
LOC: ED 19:02
DX: S92.312A Displaced fracture of first metatarsal bone, left foot, initial encounter for closed fracture (principal); W22.8XXA Striking against or struck by other objects, initial encounter; I10 Essential (primary) hypertension; J44.9 Chronic obstructive pulmonary disease, unspecified; E11.9 Type 2 diabetes mellitus without complications; Z85.3 Personal history of malignant neoplasm of breast; Z87.891 Personal history of nicotine dependence; Z88.8 Allergy status to other drugs, medicaments and biological substances; Z79.899 Other long term (current) drug therapy; Z79.84 Long term (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 of oral hypoglycemic drugs
CPT/HCPCS: 73630; 99283-25

== ENCOUNTER 2019-12-22 10:42 | Emergency (ER) | payer MEDICARE, OTHER ==
[~2019-12-22] VITALS: Ht 160 cm; Wt 102.1 kg
[~2019-12-22 10:42] MED LIST changes: +LEVALBUTER0.63 MG/3 INH
--- OUTSIDE RECORDS SUMMARY | 2019-12-22 10:44 | XMS ---
PreManage Notification: DAVID GUTIERREZ Security Director Of Instrumental Music Events No recent Security Events currently on file CRITERIA MET - History of Sepsis Dx - [facility] - 2 Visits in 30 Days CARE PROVIDERS MARIELA GARCIA [facility] 11/29/2019-Current PHONE: [phone] MAGGIE HAYES [facility] Current PHONE: [phone] Antonieta has no Care Guidelines for this patient. Connie VISIT COUNT (12 MO.) [address] [place] [address] TOTAL 3 NOTE: Visits indicate total known visits. ED/UCC VISIT TRACKING (12 MO.) 12/22/2019 10:42 [facility] [place] TYPE: Emergency COMPLAINT: - LOW BLOOD PREASURE 12/07/2019 19:03 [facility] [place] TYPE: Emergency COMPLAINT: - FALL/FOOT INJ DIAGNOSES: - Allergy status to other drugs, medicaments and biological substances - Pain in left foot - Type 2 diabetes mellitus without complications - Personal history of nicotine dependence - Essential (primary) hypertension - Personal history of malignant neoplasm of breast - Chronic obstructive pulmonary disease, unspecified - Displaced fracture of first metatarsal bone, left foot, initial encounter for closed fracture - Other lobsterman (current) drug therapy - Striking against or struck by other objects, initial encounter - custodial (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 of oral hypoglycemic drugs 11/28/2019 16:[address] [facility] [place] TYPE: Emergency COMPLAINT: - SOB, DIZZINESS DIAGNOSES: - Shortness of breath - Type 2 diabetes mellitus without complications - Allergy status to other drugs, medicaments and biological substances - Essential (primary) hypertension - custodial (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 of oral hypoglycemic drugs - Other lobsterman (current) drug therapy - Personal history of malignant neoplasm of breast - Chronic obstructive pulmonary disease, unspecified - Labyrinthitis, bilateral INPATIENT VISIT TRACKING (12 MO.) No inpatient visits to display in this time frame [id number]
[2019-12-22] MEDS ORDERED: IPRAT-ALBUT 0.5-3 ML INH (13:40)
[2019-12-22] MEDS ORDERED: PREDNISONE20 MG PO (13:40)
--- NOTE | 2019-12-22 14:36 | EKG ---
[facility] [address] [place] [address] Signed Sinus rhythm with occasional premature ventricular complexes Otherwise normal ECG When compared with ECG of 28-NOV-2019 16:44, premature ventricular complexes are now present Nonspecific T wave abnormality no longer evident in Lateral leads Confirmed by CHI DREW DO ([id number]) on 12/22/2019 2:36:34 PM Electronically Signed By: CHI DREW DO 12/22/19 1436 PATIENT NAME: DAVID GUTIERREZ Electrocardiogram DATE OF : 42 PHYSICIAN: CHI DREW DO REPORT #: [id number] REPORT IS CONFIDENTIAL AND NOT TO BE RELEASED WITHOUT AUTHORIZATION
--- NOTE | 2019-12-23 12:04 | EKG ---
[facility] [address] [place], [place] [address] Signed Normal sinus rhythm Normal ECG No previous ECGs available Confirmed by CHI DREW DO ([id number]) on 12/23/2019 12:04:27 PM Electronically Signed By: CHI DREW DO 12/23/19 1204 PATIENT NAME: DAVID GUTIERREZ Electrocardiogram DATE OF : 42 PHYSICIAN: CHI DREW DO REPORT #: [id number] REPORT IS CONFIDENTIAL AND NOT TO BE RELEASED WITHOUT AUTHORIZATION
== END 2019-12-22 13:55 | disposition home or self-care (01) ==
LOC: ED 10:42
DX: J44.1 Chronic obstructive pulmonary disease with (acute) exacerbation (principal); I10 Essential (primary) hypertension; E11.9 Type 2 diabetes mellitus without complications; Z85.3 Personal history of malignant neoplasm of breast; Z87.891 Personal history of nicotine dependence; Z79.899 Other long term (current) drug therapy; Z79.84 Long term (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 of oral hypoglycemic drugs
CPT/HCPCS: 71045; 80053; 83880; 84484; 85025; 85379; 93005; 93010; 94640; 96374; 96375; 99285-25; J2060; J2930

== ENCOUNTER 2020-10-21 16:30 | Emergency (ER) | payer MEDICARE, OTHER ==
[~2020-10-21] VITALS: Ht 160 cm; Wt 107.0 kg
[~2020-10-21 16:30] MED LIST changes: +IPRAT-ALBUT 0.5-3 ML INH; +PREDNISONE20 MG PO; +TRAMADOL HCL50 MG PO
--- OUTSIDE RECORDS SUMMARY | 2020-10-21 16:32 | XMS ---
PreManage Notification: DAVID GUTIERREZ Security Thermoscrew Operator Events No recent Security Events currently on file CRITERIA MET - CLYDE CARE PROVIDERS MARIELA GARCIA [facility] 11/29/2019-Current PHONE: [phone] MAGGIE HAYES [facility] Current PHONE: [phone] Antonieta has no Care Guidelines for this patient. Connie VISIT COUNT (12 MO.) Parker David TOTAL 5 NOTE: Visits indicate total known visits. ED/UCC VISIT TRACKING (12 MO.) 10/21/2020 16:30 [facility] [place] TYPE: Emergency COMPLAINT: - BACK PAIN 04/21/2020 18:54 [facility] [place] TYPE: Emergency COMPLAINT: - LEG PAIN DIAGNOSES: - Pain in left thigh - Other manager intermediate (current) drug therapy - Chronic obstructive pulmonary disease, unspecified - Pain in left knee - Type 2 diabetes mellitus without complications - jail (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 of systemic steroids - salvage determiner (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 of oral hypoglycemic drugs - Essential (primary) hypertension - Personal history of malignant neoplasm of breast - Allergy status to other drugs, medicaments and biological substances 12/22/2019 10:42 [facility] [place] TYPE: Emergency COMPLAINT: - LOW BLOOD PREASURE DIAGNOSES: - Other manager intermediate (current) drug therapy - Type 2 diabetes mellitus without complications - Personal history of nicotine dependence - Essential (primary) hypertension - Chronic obstructive pulmonary disease with (acute) exacerbation - jail (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 of oral hypoglycemic drugs - Personal history of malignant neoplasm of breast 12/07/2019 19:03 [facility] [place] TYPE: Emergency COMPLAINT: - FALL/FOOT INJ DIAGNOSES: - Allergy status to other drugs, medicaments and biological substances - Pain in left foot - Type 2 diabetes mellitus without complications - Personal history of nicotine dependence - Allergy status to other drugs, medicaments and biological substances - Essential (primary) hypertension - Personal history of malignant neoplasm of breast - Chronic obstructive pulmonary disease, unspecified - Displaced fracture of first metatarsal bone, left foot, initial encounter for closed fracture - Other manager intermediate (current) drug therapy - Striking against or struck by other objects, initial encounter - jail (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 of oral hypoglycemic drugs 11/28/2019 16:21 [facility] TYPE: Emergency COMPLAINT: - SOB, DIZZINESS DIAGNOSES: - Allergy status to other drugs, medicaments and biological substances - Shortness of breath - Type 2 diabetes mellitus without complications - Allergy status to other drugs, medicaments and biological substances - Essential (primary) hypertension - jail (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 of oral hypoglycemic drugs - Other chcf (current) drug therapy - Personal history of malignant neoplasm of breast - Chronic obstructive pulmonary disease, unspecified - Labyrinthitis, bilateral INPATIENT VISIT TRACKING (12 MO.) No inpatient visits to display in this time frame [id number]
[2020-10-21] MEDS ORDERED: ULTRAM50 MG PO (18:15)
[2020-10-21] MEDS ORDERED: NEURONTIN100 MG PO (18:15)
== END 2020-10-21 18:41 | disposition home or self-care (01) ==
LOC: ED 16:30
DX: S39.012A Strain of muscle, fascia and tendon of lower back, initial encounter (principal); W10.9XXA Fall (on) (from) unspecified stairs and steps, initial encounter; I10 Essential (primary) hypertension; J44.9 Chronic obstructive pulmonary disease, unspecified; E11.9 Type 2 diabetes mellitus without complications; Z85.3 Personal history of malignant neoplasm of breast; Z88.8 Allergy status to other drugs, medicaments and biological substances; Z79.899 Other long term (current) drug therapy; Z79.52 Long term (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 of systemic steroids
CPT/HCPCS: 72131; 81001; 99284-25

== ENCOUNTER 2020-11-11 20:31 | Emergency (ER) | payer MEDICARE, OTHER ==
[~2020-11-11] VITALS: Ht 160 cm; Wt 107.0 kg
[~2020-11-11 20:31] MED LIST changes: +NEURONTIN100 MG PO; +ULTRAM50 MG PO
--- OUTSIDE RECORDS SUMMARY | 2020-11-11 20:32 | XMS ---
PreManage Notification: DAVID GUTIERREZ Security Water Commissioner Events No recent Security Events currently on file CRITERIA MET - - 2 Visits in 30 Days - [facility] PHONE: [phone] MAGGIE HAYES [facility] Current PHONE: [phone] Antonieta has no Care Guidelines for this patient. Connie VISIT COUNT (12 MO.) [address] [place] [address] TOTAL 6 NOTE: Visits indicate total known visits. ED/UCC VISIT TRACKING (12 MO.) 11/11/2020 20:[address] [facility] [address] [facility] [place] TYPE: Emergency COMPLAINT: - BLOOD IN STOOL 10/21/2020 16:30 [facility] [place] TYPE: Emergency COMPLAINT: - BACK PAIN DIAGNOSES: - Essential (primary) hypertension - Strain of muscle, fascia and tendon of lower back, initial encounter - Personal history of malignant neoplasm of breast - Other exterminator termite (current) drug therapy - Fall (on) (from) unspecified stairs and steps, initial encounter - exterminator termite (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 of systemic steroids - Chronic obstructive pulmonary disease, unspecified - Type 2 diabetes mellitus without complications - Allergy status to other drugs, medicaments and biological substances 04/21/2020 18:54 [facility] [place] TYPE: Emergency COMPLAINT: - LEG PAIN DIAGNOSES: - Pain in left thigh - Other fci (current) drug therapy - Chronic obstructive pulmonary disease, unspecified - Pain in left knee - Type 2 diabetes mellitus without complications - exterminator termite (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 of systemic steroids - snf (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 of oral hypoglycemic drugs - Essential (primary) hypertension - Personal history of malignant neoplasm of breast - Allergy status to other drugs, medicaments and biological substances 12/22/2019 10:42 [facility] [place] TYPE: Emergency COMPLAINT: - LOW BLOOD PREASURE DIAGNOSES: - Other exterminator termite (current) drug therapy - Type 2 diabetes mellitus without complications - Personal history of nicotine dependence - Essential (primary) hypertension - Chronic obstructive pulmonary disease with (acute) exacerbation - snf (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 of oral hypoglycemic drugs - [...] initial encounter for closed fracture - Other exterminator termite (current) drug therapy - Striking against or struck by other objects, initial encounter - snf (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 of oral hypoglycemic drugs 11/28/2019 16:[address] [facility] [place] TYPE: Emergency COMPLAINT: - SOB, DIZZINESS DIAGNOSES: - Allergy status to other drugs, medicaments and biological substances - Shortness of breath - Type 2 diabetes mellitus without complications - Allergy status to other drugs, medicaments and biological substances - Essential (primary) hypertension - snf (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 of oral hypoglycemic drugs - Other exterminator termite (current) drug therapy - Personal history of malignant neoplasm of breast - Chronic obstructive pulmonary disease, unspecified - Labyrinthitis, bilateral INPATIENT VISIT TRACKING (12 MO.) No inpatient visits to display in this time frame [id number]
== END 2020-11-12 01:14 | disposition home or self-care (01) ==
LOC: ED 20:31
DX: K92.1 Melena (principal); R10.30 Lower abdominal pain, unspecified; E66.01 Morbid (severe) obesity due to excess calories; I10 Essential (primary) hypertension; E11.9 Type 2 diabetes mellitus without complications; J44.9 Chronic obstructive pulmonary disease, unspecified; Z85.3 Personal history of malignant neoplasm of breast; Z88.8 Allergy status to other drugs, medicaments and biological substances; Z79.899 Other long term (current) drug therapy; Z79.01 Long term (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 of anticoagulants; Z79.84 Long term (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 of oral hypoglycemic drugs
CPT/HCPCS: 51701; 74177; 80053; 81001; 85025; 99284-25; Q9967

== ENCOUNTER 2020-12-28 13:12 | Emergency (ER) | payer MEDICARE, OTHER ==
[~2020-12-28] VITALS: Ht 160 cm; Wt 107.0 kg
--- OUTSIDE RECORDS SUMMARY | 2020-12-28 13:14 | XMS ---
PreManage Notification: DAVID GUTIERREZ Security Leaf Conditioner Helper Events No recent Security Events currently on file CRITERIA MET - CLYDE CARE PROVIDERS MARIELA GARCIA [facility] 11/29/2019-Current PHONE: [phone] MAGGIE HAYES [facility] Current PHONE: [phone] Antonieta has no Care Guidelines for this patient. Connie VISIT COUNT (12 MO.) Nirali David TOTAL 4 NOTE: Visits indicate total known visits. ED/UCC VISIT TRACKING (12 MO.) 12/28/2020 13:12 [facility] [place] TYPE: Emergency COMPLAINT: - BLOOD PRESSURE PROBLEM 11/11/2020 20:31 [facility] [place] TYPE: Emergency COMPLAINT: - BLOOD IN STOOL DIAGNOSES: - Personal history of malignant neoplasm of breast - Allergy status to other drugs, medicaments and biological substances - Other superintendent terminal (current) drug therapy - detention (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 of anticoagulants - Melena - Morbid (severe) obesity due to excess calories - Essential (primary) hypertension - Lower abdominal pain, unspecified - Type 2 diabetes mellitus without complications - manager terminal (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 of oral hypoglycemic drugs - Chronic obstructive pulmonary disease, unspecified 10/21/2020 16:30 [facility] [place] TYPE: Emergency COMPLAINT: - BACK PAIN DIAGNOSES: - Essential (primary) hypertension - Strain of muscle, fascia and tendon of lower back, initial encounter - Personal history of malignant neoplasm of breast - Other superintendent terminal (current) drug therapy - Fall (on) (from) unspecified stairs and steps, initial encounter - manager terminal (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 of systemic steroids - Chronic obstructive pulmonary disease, unspecified - Type 2 diabetes mellitus without complications - Allergy status to other drugs, medicaments and biological substances 04/21/2020 18:54 [facility] [place] TYPE: Emergency COMPLAINT: - LEG PAIN DIAGNOSES: - Pain in left thigh - Other superintendent terminal (current) drug therapy - Chronic obstructive pulmonary disease, unspecified - Pain in left knee - Type 2 diabetes mellitus without complications - manager terminal (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 of systemic steroids - detention (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 of oral hypoglycemic drugs - Essential (primary) hypertension - Personal history of malignant neoplasm of breast - Allergy status to other drugs, medicaments and biological substances INPATIENT VISIT TRACKING (12 MO.) No inpatient visits to display in this time frame [id number]
[2020-12-28] MEDS ORDERED: PREDNISONE20 MG PO (19:23)
[2020-12-28] MEDS ORDERED: MECLIZINE HCL25 MG PO (19:23)
[2020-12-28] MEDS ORDERED: DOXYCYCLINE HY100 MG PO (19:23)
[2020-12-28] MEDS ORDERED: SUDOGEST30 MG PO (19:25)
--- NOTE | 2020-12-29 13:41 | EKG ---
[facility] [address] [place], [place] [address] Signed Sinus rhythm with 1st degree AV block Otherwise normal ECG When compared with ECG of 22-DEC-2019 12:47, OR interval has increased Confirmed by LY MIGUEL MD ([id number]) on 12/29/2020 1:41:16 PM Electronically Signed By: LY MIGUEL MD 12/29/20 1341 PATIENT NAME: DAVID GUTIERREZ Electrocardiogram DATE OF : 42 PHYSICIAN: LY MIGUEL MD REPORT #: [id number] REPORT IS CONFIDENTIAL AND NOT TO BE RELEASED WITHOUT AUTHORIZATION
== END 2020-12-28 19:40 | disposition home or self-care (01) ==
LOC: ED 13:12
DX: H83.09 Labyrinthitis, unspecified ear (principal); J32.9 Chronic sinusitis, unspecified; J44.9 Chronic obstructive pulmonary disease, unspecified; I10 Essential (primary) hypertension; Z85.3 Personal history of malignant neoplasm of breast; E11.9 Type 2 diabetes mellitus without complications; Z88.8 Allergy status to other drugs, medicaments and biological substances; Z79.899 Other long term (current) drug therapy; Z79.84 Long term (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 of oral hypoglycemic drugs
CPT/HCPCS: 70450; 71045; 80053; 81001; 83735; 84484; 85025; 93005; 93010; 94640; 96374; 99285-25; A9270; J1100; J7030

== ENCOUNTER 2021-01-08 15:57 | Emergency (ER) | payer MEDICARE, OTHER ==
[~2021-01-08] VITALS: Ht 160 cm; Wt 107.0 kg
[~2021-01-08 15:57] MED LIST changes: +DOXYCYCLINE HY100 MG PO
--- OUTSIDE RECORDS SUMMARY | 2021-01-08 16:20 | XMS ---
PreManage Notification: DAVID GUTIERREZ Security Rn Clinical Resource Events No recent Security Events currently on file CRITERIA MET - [facility] - 2 Visits in 30 Days CARE PROVIDERS MARIELA GARCIA [facility] 11/29/2019-Current PHONE: [phone] MAGGIE HAYES [facility] Current PHONE: [phone] Antonieta has no Care Guidelines for this patient. Cnonie VISIT COUNT (12 MO.) [address] [place] [address] TOTAL 5 NOTE: Visits indicate total known visits. ED/UCC VISIT TRACKING (12 MO.) 01/08/2021 15:58 [facility] [place] TYPE: Emergency COMPLAINT: - SOB 12/28/2020 13:12 [facility] [place] TYPE: Emergency COMPLAINT: - BLOOD PRESSURE PROBLEM DIAGNOSES: - Other professor in family studies (current) drug therapy - senior living (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 of oral hypoglycemic drugs - Chronic sinusitis, unspecified - Allergy status to other drugs, medicaments and biological substances - Labyrinthitis, unspecified ear - Essential (primary) hypertension - Personal history of malignant neoplasm of breast - Chronic obstructive pulmonary disease, unspecified - Dizziness and giddiness - Type 2 diabetes mellitus without complications 11/11/2020 20:31 [facility] [place] TYPE: Emergency COMPLAINT: - BLOOD IN STOOL DIAGNOSES: - Personal history of malignant neoplasm of breast - Allergy status to other drugs, medicaments and biological substances - Other professor in family studies (current) drug therapy - taffy candy maker (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 of anticoagulants - Melena - Morbid (severe) obesity due to excess calories - Essential (primary) hypertension - Lower abdominal pain, unspecified - Type 2 diabetes mellitus without complications - senior living (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 of oral hypoglycemic drugs - Chronic obstructive pulmonary disease, unspecified 10/21/2020 16:30 [facility] [place] TYPE: Emergency COMPLAINT: - BACK PAIN DIAGNOSES: - Essential (primary) hypertension - Strain of muscle, fascia and tendon of lower back, initial encounter - Personal history of malignant neoplasm of breast - Other halfway (current) drug therapy - Fall (on) (from) unspecified stairs and steps, initial encounter - senior living (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 of systemic steroids - Chronic obstructive pulmonary disease, unspecified - Type 2 diabetes mellitus without complications - Allergy status to other drugs, medicaments and biological substances 04/21/2020 18:54 [facility] [place] TYPE: Emergency COMPLAINT: - LEG PAIN DIAGNOSES: - Pain in left thigh - Other professor in family studies (current) drug therapy - Chronic obstructive pulmonary disease, unspecified - Pain in left knee - Type 2 diabetes mellitus without complications - senior living (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 of systemic steroids - taffy candy maker (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 of oral hypoglycemic drugs - Essential (primary) hypertension - Personal history of malignant neoplasm of breast - Allergy status to other drugs, medicaments and biological substances INPATIENT VISIT TRACKING (12 MO.) No inpatient visits to display in this time frame [id number]
--- NOTE | 2021-01-10 14:58 | EKG ---
[facility] [address] [place] [address] Signed Sinus rhythm with 1st degree AV block with occasional premature ventricular complexes Otherwise normal ECG When compared with ECG of 28-DEC-2020 14:49, premature ventricular complexes are now present Confirmed by LY MIGUEL MD ([id number]) on 01/10/2021 2:58:18 PM Electronically Signed By: LY MIGUEL MD 01/10/21 1458 PATIENT NAME: DAVID GUTIERREZ Electrocardiogram DATE OF : 42 PHYSICIAN: LY MIGUEL MD REPORT #: [id number] REPORT IS CONFIDENTIAL AND NOT TO BE RELEASED WITHOUT AUTHORIZATION
== END 2021-01-08 21:44 | disposition home or self-care (01) ==
LOC: ED 15:57
DX: J44.9 Chronic obstructive pulmonary disease, unspecified (principal); R42 Dizziness and giddiness; I10 Essential (primary) hypertension; E11.9 Type 2 diabetes mellitus without complications; Z85.3 Personal history of malignant neoplasm of breast; Z90.13 Acquired absence of bilateral breasts and nipples; Z90.710 Acquired absence of both cervix and uterus; Z90.89 Acquired absence of other organs; Z88.5 Allergy status to narcotic agent; Z88.8 Allergy status to other drugs, medicaments and biological substances; Z79.899 Other long term (current) drug therapy; Z79.52 Long term (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 of systemic steroids; Z20.822 Contact with and (suspected) exposure to COVID-19
CPT/HCPCS: 70450; 71045; 80053; 83735; 84484; 85025; 93005; 93010; 99285-25; C9803; U0003

== ENCOUNTER 2021-03-25 18:06 | Emergency (ER) | payer MEDICARE, OTHER ==
[~2021-03-25] VITALS: Ht 160 cm; Wt 109.3 kg
--- OUTSIDE RECORDS SUMMARY | 2021-03-25 18:10 | XMS ---
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 Connie VISIT COUNT (12 MO.) Georges David TOTAL 6 NOTE: Visits indicate total known visits. 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 - Allergy status to narcotic agent - longterm (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 of systemic steroids - Acquired absence of other organs - Chronic obstructive pulmonary disease, unspecified - Acquired absence of both cervix and uterus - Shortness of breath - Dizziness and giddiness - Type 2 diabetes mellitus without complications 12/28/2020 13:12 [facility] [place] TYPE: Emergency COMPLAINT: - BLOOD PRESSURE PROBLEM DIAGNOSES: - Other assisted (current) drug therapy - case briefer (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 of oral hypoglycemic drugs - [...] drugs, medicaments and biological substances - Other assisted (current) drug therapy - case briefer (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 of anticoagulants - Melena - Morbid (severe) obesity due to excess calories - Essential (primary) hypertension - Lower abdominal pain, unspecified - Type 2 diabetes mellitus without complications - longterm (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 of oral hypoglycemic drugs - Chronic obstructive pulmonary disease, unspecified 10/21/2020 16:30 [facility] [place] TYPE: Emergency COMPLAINT: - BACK PAIN DIAGNOSES: - Essential (primary) hypertension - Strain of muscle, fascia and tendon of lower back, initial encounter - Personal history of malignant neoplasm of breast - 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
[2021-03-25] MEDS ORDERED: ARTHRITIS PAIN650 MG PO (20:29)
[2021-03-25] MEDS ORDERED: TRAMADOL HCL50 MG PO (21:10)
== END 2021-03-25 21:36 | disposition home or self-care (01) ==
LOC: ED 18:06
DX: M79.651 Pain in right thigh (principal); I10 Essential (primary) hypertension; J44.9 Chronic obstructive pulmonary disease, unspecified; E11.9 Type 2 diabetes mellitus without complications; Z85.3 Personal history of malignant neoplasm of breast; Z88.8 Allergy status to other drugs, medicaments and biological substances; Z79.899 Other long term (current) drug therapy; Z79.84 Long term (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 of oral hypoglycemic drugs
CPT/HCPCS: 93971; 99283-25

== ENCOUNTER 2021-06-20 15:56 | Emergency (ER) | payer MEDICARE, OTHER ==
[~2021-06-20] VITALS: Ht 160 cm; Wt 109.3 kg
[~2021-06-20 15:56] MED LIST changes: +ARTHRITIS PAIN650 MG PO
--- OUTSIDE RECORDS SUMMARY | 2021-06-20 16:00 | XMS ---
PreManage Notification: DAVID GUTIERREZ Security Scallop Shucker Events No recent Security Events currently on file CRITERIA MET - [facility] CARE PROVIDERS MARIELA GARCIA [facility] 11/29/2019-Current PHONE: [phone] MAGGIE HAYES [facility] Current PHONE: [phone] Antonieta has no Care Guidelines for this patient. Connie VISIT COUNT (12 MO.) Georges David TOTAL 6 NOTE: Visits indicate total known visits. ED/UCC VISIT TRACKING (12 MO.) 06/20/2021 15:58 [facility] [place] TYPE: Emergency COMPLAINT: - HEAD ACHE,COUGH, FLEM 03/25/2021 18:06 [facility] [place] TYPE: Emergency COMPLAINT: - POSS BLOOD CLOT DIAGNOSES: - Other fpc (current) drug therapy - manager intermediate (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 of oral hypoglycemic drugs - Type 2 diabetes mellitus without complications - Personal history of malignant neoplasm of breast - Chronic obstructive pulmonary disease, unspecified - Allergy status to other drugs, medicaments and biological substances - Pain in right thigh - Essential (primary) hypertension 01/08/2021 15:58 [facility] [place] TYPE: Emergency COMPLAINT: - SOB DIAGNOSES: - Acquired absence of bilateral breasts and nipples - Personal history of malignant neoplasm of breast - Allergy status to other drugs, medicaments and biological substances - Essential (primary) hypertension - Other fpc (current) drug therapy - Allergy status to narcotic agent - Contact with and (suspected) exposure to COVID-19 - manager intermediate (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 of systemic steroids - Acquired absence of other organs - Chronic obstructive pulmonary disease, unspecified - Acquired absence of both cervix and uterus - Shortness of breath - Dizziness and giddiness - Type 2 diabetes mellitus without complications 12/28/2020 13:12 [facility] [place] TYPE: Emergency COMPLAINT: - BLOOD PRESSURE PROBLEM DIAGNOSES: - Other termination clerk (current) drug therapy - longterm (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 of oral hypoglycemic [...] drugs, medicaments and biological substances - Other termination clerk (current) drug therapy - manager intermediate (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 of anticoagulants - Melena - Morbid (severe) obesity due to excess calories - Essential (primary) hypertension - Lower abdominal pain, unspecified - Type 2 diabetes mellitus without complications - longterm (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 of oral hypoglycemic drugs - Chronic obstructive pulmonary disease, unspecified 10/21/2020 16:[address] [facility] [place] TYPE: Emergency COMPLAINT: - BACK PAIN DIAGNOSES: - Essential (primary) hypertension - Strain of muscle, fascia and tendon of lower back, initial encounter - Personal history of malignant neoplasm of breast - Other termination clerk (current) drug therapy - Fall (on) (from) unspecified stairs and steps, initial encounter - manager intermediate (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 of systemic steroids - Chronic obstructive pulmonary disease, unspecified - Type 2 diabetes mellitus without complications - Allergy status to other drugs, medicaments and biological substances INPATIENT VISIT TRACKING (12 MO.) No inpatient visits to display in this time frame [email or web address]
[2021-06-20] MEDS ORDERED: ZITHROMAX250 MG PO (18:19)
[2021-06-20] MEDS ORDERED: PREDNISONE20 MG PO (18:19)
== END 2021-06-20 18:46 | disposition home or self-care (01) ==
LOC: ED 15:56
DX: J44.1 Chronic obstructive pulmonary disease with (acute) exacerbation (principal); J06.9 Acute upper respiratory infection, unspecified; Z20.822 Contact with and (suspected) exposure to COVID-19; I10 Essential (primary) hypertension; E11.9 Type 2 diabetes mellitus without complications; Z85.3 Personal history of malignant neoplasm of breast; Z88.8 Allergy status to other drugs, medicaments and biological substances; Z79.899 Other long term (current) drug therapy; Z79.84 Long term (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 of oral hypoglycemic drugs
CPT/HCPCS: 36415; 71045; 80053; 83605; 85025; 87502; 99283-25; C9803; J7512; U0003

== ENCOUNTER 2021-12-21 10:21 | Emergency (ER) | payer MEDICARE ==
[~2021-12-21] VITALS: Ht 160 cm; Wt 109.3 kg
[~2021-12-21 10:21] MED LIST changes: +ZITHROMAX250 MG PO
--- OUTSIDE RECORDS SUMMARY | 2021-12-21 10:24 | XMS ---
PreManage Notification: DAVID GUTIERREZ Security Hospitalist Physician Events No recent Security Events currently on file CRITERIA MET - [facility] CARE PROVIDERS MARIELA GARCIA [facility] 11/29/2019-Current PHONE: [phone] MAGGIE HAYES [facility] Current PHONE: [phone] Antonieta has no Care Guidelines for this patient. Connie VISIT COUNT (12 MO.) Parker David TOTAL 5 NOTE: Visits indicate total known visits. ED/UCC VISIT TRACKING (12 MO.) 12/21/2021 10:22 [facility] [place] TYPE: Emergency COMPLAINT: - SOB, LOW O2 SATS 06/20/2021 15:58 [facility] [place] TYPE: Emergency COMPLAINT: - HEAD ACHE,COUGH, FLEM DIAGNOSES: - Acute upper respiratory infection, unspecified - Other extermination inspector (current) drug therapy - Type 2 diabetes mellitus without complications - Allergy status to other drugs, medicaments and biological substances - Cough, unspecified - Personal history of malignant neoplasm of breast - extermination inspector (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 of oral hypoglycemic drugs - Chronic obstructive pulmonary disease with (acute) exacerbation - Contact with and (suspected) exposure to COVID-19 - Essential (primary) hypertension 03/25/2021 18:06 [facility] [place] TYPE: Emergency COMPLAINT: - POSS BLOOD CLOT DIAGNOSES: - Personal history of malignant neoplasm of breast - extermination inspector (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 of oral hypoglycemic drugs - Pain in right thigh - Chronic obstructive pulmonary disease, unspecified - Type 2 diabetes mellitus without complications - Other fdc (current) drug therapy - Essential (primary) hypertension - Allergy status to other drugs, medicaments and biological substances 01/08/2021 15:58 [facility] [place] TYPE: Emergency COMPLAINT: - SOB DIAGNOSES: - Essential (primary) hypertension - Acquired absence of both cervix and uterus - Personal history of malignant neoplasm of breast - Acquired absence of other organs - Contact with and (suspected) exposure to COVID-19 - Type 2 diabetes mellitus without complications - Other fdc (current) drug therapy - Shortness of breath - Allergy status to other drugs, medicaments and biological substances - Chronic obstructive pulmonary disease, unspecified - Acquired absence of bilateral breasts and nipples - [facility] (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 of systemic steroids - Allergy status to narcotic agent - Dizziness and giddiness 12/28/2020 13:12 [facility] [place] TYPE: Emergency COMPLAINT: - BLOOD PRESSURE PROBLEM DIAGNOSES: - Allergy status to other drugs, medicaments and biological substances - [facility] (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 of oral hypoglycemic drugs - Dizziness and giddiness - Personal history of malignant neoplasm of breast - Labyrinthitis, unspecified ear - Chronic sinusitis, unspecified - Type 2 diabetes mellitus without complications - Other extermination inspector (current) drug therapy - Chronic obstructive pulmonary disease, unspecified - Essential (primary) hypertension INPATIENT VISIT TRACKING (12 MO.) No inpatient visits to display in this time frame [email or web address]
[2021-12-21] MEDS ORDERED: AMOX TR-K CLV1 EAC1 PO (11:13)
[2021-12-21] MEDS ORDERED: BREO ELLIPTA 21 EACH IH (11:15)
[2021-12-21] MEDS ORDERED: FLUTICASONE-VI1 EAC1 IH (11:17)
[2021-12-21] MEDS ORDERED: VENTOLIN HFA18 GM INH (12:38)
[2021-12-21] MEDS ORDERED: PREDNISONE20 MG PO (12:38)
--- NOTE | 2021-12-23 15:30 | EKG ---
[facility] [address] [place] [address] Signed Sinus rhythm with 1st degree AV block Otherwise normal ECG When compared with ECG of 08-JAN-2021 16:20, premature ventricular complexes are no longer present Confirmed by LY MIGUEL MD ([id number]) on 12/23/2021 3:30:26 PM Electronically Signed By: LY MIGUEL MD 12/23/21 1530 PATIENT NAME: DAVID GUTIERREZ Electrocardiogram DATE OF : 42 PHYSICIAN: LY MIGUEL MD REPORT #: [id number] REPORT IS CONFIDENTIAL AND NOT TO BE RELEASED WITHOUT AUTHORIZATION
== END 2021-12-21 14:17 | disposition home or self-care (01) ==
LOC: ED 10:21
DX: J45.901 Unspecified asthma with (acute) exacerbation (principal); I10 Essential (primary) hypertension; E11.9 Type 2 diabetes mellitus without complications; Z85.3 Personal history of malignant neoplasm of breast; Z88.8 Allergy status to other drugs, medicaments and biological substances; Z79.899 Other long term (current) drug therapy; Z79.52 Long term (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 of systemic steroids; Z79.84 Long term (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 of oral hypoglycemic drugs
CPT/HCPCS: 36415; 71045; 80053; 83735; 83880; 84484; 85025; 87502; 93005; 93010; 94640; 96374; 99285-25; J2930; U0003

== ENCOUNTER 2022-01-29 16:09 | Emergency (ER) | payer OTHER, MEDICARE ==
[~2022-01-29] VITALS: Ht 160 cm; Wt 109.3 kg
[~2022-01-29 16:09] MED LIST changes: +AMOX TR-K CLV1 EAC1 PO; +BREO ELLIPTA 21 EACH IH; +FLUTICASONE-VI1 EAC1 IH; +VENTOLIN HFA18 GM INH
--- OUTSIDE RECORDS SUMMARY | 2022-01-29 16:12 | XMS ---
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 Connie VISIT COUNT (12 MO.) 1 Lawson David TOTAL 5 NOTE: Visits indicate total known visits. 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 - Unspecified asthma with (acute) exacerbation - Contact with and (suspected) exposure to COVID-19 - Personal history of malignant neoplasm of breast - Shortness of breath - terminal press operator (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 of systemic steroids - Allergy status to other drugs, medicaments and biological substances - halfway (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 of oral hypoglycemic drugs - Type 2 diabetes mellitus without complications 06/20/2021 15:58 [facility] [place] TYPE: Emergency COMPLAINT: - HEAD ACHE,COUGH, FLEM DIAGNOSES: - Acute upper respiratory infection, unspecified - Other prison (current) drug therapy - Type 2 diabetes mellitus without complications - Allergy status to other drugs, medicaments and biological substances - Cough, unspecified - Personal history of malignant neoplasm of breast - terminal press operator (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 of oral hypoglycemic drugs - Chronic obstructive pulmonary disease with (acute) exacerbation - Contact with and (suspected) exposure to COVID-19 - Essential (primary) hypertension 03/25/2021 18:06 [facility] [place] TYPE: Emergency COMPLAINT: - POSS BLOOD CLOT DIAGNOSES: - Personal history of malignant neoplasm of breast - terminal press operator (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 of oral hypoglycemic drugs - Pain in right thigh - Chronic obstructive pulmonary disease, unspecified - Type 2 diabetes mellitus without complications - Other longwall machine operator helper (current) drug therapy - Essential (primary) hypertension - Allergy status to other drugs, medicaments and biological substances INPATIENT VISIT TRACKING (12 MO.) No inpatient visits to display in this time frame [id number]
[2022-01-29] MEDS ORDERED: ULTRAM50 MG PO (21:25)
== END 2022-01-29 21:53 | disposition home or self-care (01) ==
LOC: ED 16:09
DX: S16.1XXA Strain of muscle, fascia and tendon at neck level, initial encounter (principal); S39.012A Strain of muscle, fascia and tendon of lower back, initial encounter; S70.01XA Contusion of right hip, initial encounter; I10 Essential (primary) hypertension; J44.9 Chronic obstructive pulmonary disease, unspecified; E11.9 Type 2 diabetes mellitus without complications; Z88.8 Allergy status to other drugs, medicaments and biological substances; Z79.899 Other long term (current) drug therapy; Z79.84 Long term (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 of oral hypoglycemic drugs; W01.0XXA Fall on same level from slipping, tripping and stumbling without subsequent striking against object, initial encounter
CPT/HCPCS: 72040; 72100; 73502; 99283; A9270

== ENCOUNTER 2022-04-01 19:46 | Emergency (ER) | payer MEDICARE ==
[~2022-04-01] VITALS: Ht 160 cm; Wt 106.7 kg
--- OUTSIDE RECORDS SUMMARY | 2022-04-01 19:49 | XMS ---
PreManage Notification: DAVID GUTIERREZ Security Residential Roofer Events No recent Security Events currently on file CRITERIA MET - CLYDE CARE PROVIDERS MARIELA GARCIA [facility] 11/29/2019-Current PHONE: [phone] MAGGIE HAYES [facility] Current PHONE: [phone] Antonieta has no Care Guidelines for this patient. Connie VISIT COUNT (12 MO.) 1 Lawson David TOTAL 5 NOTE: Visits indicate total known visits. ED/UCC VISIT TRACKING (12 MO.) 04/01/2022 19:47 [facility] TYPE: Emergency COMPLAINT: - FEVER 01/29/2022 16:11 [facility] TYPE: Emergency COMPLAINT: - FALL, NECK/R SIDE ABD/HIP PAIN DIAGNOSES: - Contusion of right hip, initial encounter - intermission coordinator (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 of oral hypoglycemic drugs - Essential (primary) hypertension - Pain in right hip - Type 2 diabetes mellitus without complications - Allergy status to other drugs, medicaments and biological substances - Chronic obstructive pulmonary disease, unspecified - Strain of muscle, fascia and tendon of lower back, initial encounter - Other senior care (current) drug therapy - Fall on same level from slipping, tripping and stumbling without subsequent striking against object, initial encounter - Strain of muscle, fascia and tendon at neck level, initial encounter 12/21/2021 16:37 [facility]rine [facility] TYPE: Emergency DIAGNOSES: - Shortness of Breath - Dyspnea, unspecified - SOB, rapid HR 12/21/2021 10:22 [facility] TYPE: Emergency COMPLAINT: - SOB, LOW O2 SATS DIAGNOSES: - Personal history of malignant neoplasm of breast - Shortness of breath - intermission coordinator (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 of systemic steroids - Allergy status to other drugs, medicaments and biological substances - correction (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 of oral hypoglycemic drugs - Type 2 diabetes mellitus without complications - Essential (primary) hypertension - Other lobsterman (current) drug therapy - Unspecified asthma with (acute) exacerbation - Contact with and (suspected) exposure to COVID-19 06/20/2021 15:58 [facility] TYPE: Emergency COMPLAINT: - HEAD ACHE,COUGH, FLEM DIAGNOSES: - Cough, unspecified - Personal history of malignant neoplasm of breast - intermission coordinator (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 of oral hypoglycemic drugs - Chronic obstructive pulmonary disease with (acute) exacerbation - Contact with and (suspected) exposure to COVID-19 - Essential (primary) hypertension - Acute upper respiratory infection, unspecified - Other lobsterman (current) drug therapy - Type 2 diabetes mellitus without complications - Allergy status to other drugs, medicaments and biological substances INPATIENT VISIT TRACKING (12 MO.) No inpatient visits to display in this time frame [email or web address]
--- NOTE | 2022-04-02 17:43 | EKG ---
[facility] [address] [facility] [address] [facility] [place] [address] Signed Poor data quality Suspect sinus rhythm with first degree AV block Nonspecific ST abnormality Abnormal ECG When compared with ECG of 21-DEC-2021 10:27, Junctional rhythm has replaced Sinus rhythm Vent. rate has increased BY 47 BPM Confirmed by LY MIGUEL MD ([id number]) on 04/02/2022 5:43:11 PM Electronically Signed By: LY MIGUEL MD 04/02/22 1743 PATIENT NAME: DAVID GUTIERREZ Electrocardiogram DATE OF : 42 PHYSICIAN: LY MIGUEL MD REPORT #: [id number] REPORT IS CONFIDENTIAL AND NOT TO BE RELEASED WITHOUT AUTHORIZATION
== END 2022-04-01 23:15 | disposition home or self-care (01) ==
LOC: ED 19:46
DX: J44.1 Chronic obstructive pulmonary disease with (acute) exacerbation (principal); B97.4 Respiratory syncytial virus as the cause of diseases classified elsewhere; I10 Essential (primary) hypertension; E11.9 Type 2 diabetes mellitus without complications; Z20.822 Contact with and (suspected) exposure to COVID-19; Z99.81 Dependence on supplemental oxygen; Z88.8 Allergy status to other drugs, medicaments and biological substances; Z79.899 Other long term (current) drug therapy; Z79.84 Long term (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 of oral hypoglycemic drugs
CPT/HCPCS: 36415; 71045; 80053; 83880; 84484; 85025; 87502; 93005; 93010; 94640; 94644; 96374; 99285-25; A9270; C9803; J2930; U0003

== ENCOUNTER 2022-04-03 23:27 | Inpatient (IN) | payer MEDICARE ==
[~2022-04-03] VITALS: Ht 160 cm; Wt 103.6 kg
[~2022-04-03 23:27] MED LIST changes: -BREO ELLIPTA 21 EACH IH; +BREO ELLIPTA 21 EACH INH
--- OUTSIDE RECORDS SUMMARY | 2022-04-03 23:31 | XMS ---
PreManage Notification: DAVID GUTIERREZ Security Radio Division Lieutenant Events No recent Security Events currently on file CRITERIA MET - [facility] - 2 Visits in 30 Days [facility] PHONE: [phone] MAGGIE HAYES [facility] Current PHONE: [phone] Antonieta has no Care Guidelines for this patient. Connie VISIT COUNT (12 MO.) [address] [place] [address] TOTAL 6 NOTE: Visits indicate total known visits. ED/UCC VISIT TRACKING (12 MO.) 04/03/2022 23:[address] [facility] [place] TYPE: Emergency COMPLAINT: - FEELING SICK AND SWEATING ALOT 04/01/2022 19:47 [facility] [place] TYPE: Emergency COMPLAINT: - FEVER DIAGNOSES: - Other half-way (current) drug therapy - Contact with and (suspected) exposure to COVID-19 - Essential (primary) hypertension - Dependence on supplemental oxygen - Allergy status to other drugs, medicaments and biological substances - care home (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 of oral hypoglycemic drugs - Respiratory syncytial virus as the cause of diseases classified elsewhere - Shortness of breath - Chronic obstructive pulmonary disease with (acute) exacerbation - Type 2 diabetes mellitus without complications 01/29/2022 16:11 [facility] [place] TYPE: Emergency COMPLAINT: - FALL, NECK/R SIDE ABD/HIP PAIN DIAGNOSES: - Strain of muscle, fascia and tendon at neck level, initial encounter - Contusion of right hip, initial encounter - 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 (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 of oral hypoglycemic 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 - Essential (primary) hypertension - Pain in right hip - Type 2 diabetes mellitus without complications - Allergy status to other drugs, medicaments and biological substances - Chronic obstructive pulmonary disease, unspecified - Strain of muscle, fascia and tendon of lower back, initial encounter - Other terminal make up operator (current) drug therapy - Fall on same level from slipping, tripping and stumbling without subsequent striking against object, initial encounter 12/21/2021 16:37 [facility] She [facility]IG[facility] TYPE: Emergency DIAGNOSES: - Shortness of Breath - Dyspnea, unspecified - SOB, rapid HR 12/21/2021 10:22 [facility] [place] TYPE: Emergency COMPLAINT: - SOB, LOW O2 SATS DIAGNOSES: - Contact with and (suspected) exposure to COVID-19 - Personal history of malignant neoplasm of breast - Shortness of breath - care home (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 of systemic steroids - Allergy status to other drugs, medicaments and biological substances - termite 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 (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 of oral hypoglycemic drugs - Type 2 diabetes mellitus without complications - Essential (primary) hypertension - Other half-way (current) drug therapy - Unspecified asthma with (acute) exacerbation 06/20/2021 15:[address] [facility] [place] TYPE: Emergency COMPLAINT: - HEAD ACHE,COUGH, FLEM DIAGNOSES: - Allergy status to other drugs, medicaments and biological substances - Cough, unspecified - Personal history of malignant neoplasm of breast - termite 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 (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 of oral hypoglycemic drugs - Chronic obstructive pulmonary disease with (acute) exacerbation - Contact with and (suspected) exposure to COVID-19 - Essential (primary) hypertension - Acute upper respiratory infection, unspecified - Other terminal make up operator (current) drug therapy - Type 2 diabetes mellitus without complications INPATIENT VISIT TRACKING (12 MO.) No inpatient visits to display in this time frame [email or web address]
--- NOTE | 2022-04-04 04:54 | NUR ---
ASSUMED CARE OF PATIENT AFTER RECEIVING BEDSIDE HANDOFF REPORT IN ED. PT AOX4, VSS, NAD. BROTHER ACCOMPANIED PT TO ROOM. WILL CONTINUE TO MONITOR AND FOLLOW POC.
--- NOTE | 2022-04-04 06:32 | NUR ---
PT INCONTINENTOF URINE. UP TO BSC WITH FWW. PT BECOMES SOB WITH ACTIVITY, SPO2 DROPS INTO 80s ON 3L NC. NC INCREASED TO 5L DURING ACTIVITY, SPO2 94%. NC DECREASED BACK TO 3L AFTER ACTIVITY AND PT RECOVERS WITHIN A FEW MINUTES. CPOX ON. COFFE PROVIDED. NO OTHER NEEDS AT THIS TIME. CALL LIGHTIN REACH, RAILS UP, PADS DOWN, BED ALARM ON.
[2022-04-04] MEDS ORDERED: ALBUTEROL2.5 MG/3 M INH (07:25)
[2022-04-04] MEDS ORDERED: KETOCONAZOLE120 ML TOP (07:28)
[2022-04-04] MEDS ORDERED: CYCLOBENZAPRINE10 MG PO (07:30)
[2022-04-04] MEDS ORDERED: HYDROCODON-ACE1 EA10 PO (07:30)
[2022-04-04] MEDS ORDERED: LATANOPROST2.5 ML OU (07:34)
[2022-04-04] MEDS ORDERED: OMEPRAZOLE40 MG PO (07:35)
--- NOTE | 2022-04-04 08:01 | NUR ---
report received from night rn - pt resting in bed with hob elevated eyes closed. 3l nc in place, cpox 98%. call light in reach.
[2022-04-04] MEDS ORDERED: ARTHRITIS PAIN150 GM TOP (09:09)
--- NOTE | 2022-04-04 09:15 | NUR ---
RN ROUNDING IN MD IN ROOM. CURRENTLY ON 3L VIA NC WITH SPO2 96%. SOB AND GRUNTING NOTED WITH RESPIRATIONS, ABLE TO HAVE FULL SENTENCE CONVERSATION WITH MD WITH SIGNIFICANT SOB. TITRATED DOWN TO 2L VIA NC - WILL CONTINUE TO MONITOR.
--- NOTE | 2022-04-04 12:31 | NUR ---
RN IN ROOM TO ADMINSTER SCHEDULED MEDICATIONS. PT REMAINS ON 2L VIA NC WITH ADEQUATE SATURATIONS. RESTING IN BED. COMPLAINS OF RESTLESS LEG SYMPTOMS. IMPROVED APPETITE. CALL LIGHT AT SIDE.
[2022-04-04] MEDS ORDERED: TRELEGY ELLIPT1 EACH INH (13:06)
--- NOTE | 2022-04-04 13:14 | NUR ---
MED REC COMPLETE
--- NOTE | 2022-04-04 13:48 | NUR ---
RN IN ROOM TO ASSESS PT - PT BACK TO BED FROM [facility], SPO2 STABLE AND RECOVERING MORE QUICKLY AFTER AMBULATION. REMAINS ON 2L VIA NC, WHICH IS CHRONIC AT HOME. LUNG SOUNDS TIGHT - REQUESTS PRN YANCY TX, RT NOTIFIED. BROTHER AT BEDSIDE.
--- NOTE | 2022-04-04 14:56 | NUR ---
PATIENT SITTING ON BED TALKING WITH VISITOR. VITALS AND I/O'S COMPLETED, CALL LIGHT WITHIN REACH.
--- NOTE | 2022-04-04 15:21 | NUR ---
RT IN ROOM PROVIDING NEB TX - PT PRODUCING THICK WHITE SPUTUM USING CORNET.
--- NOTE | 2022-04-04 18:04 | NUR ---
PATIENT SITTING ON SIDE OF BED. VITALS AND I/O'S COMPLETED. CALL LIGHT WITHIN REACH.
--- NOTE | 2022-04-04 19:36 | NUR ---
RECEIVED REPORT FROM DAY RN. PT IS SITTING AT EOB. A/O, RESPIRATIONS EVEN AND REGULAR. REQUESTING TO USE RESTROOM. DEVOPS DEVELOPER ASSISTING PT.
--- NOTE | 2022-04-04 20:42 | NUR ---
PT ASSESSMENT AND MEDICATION ADMINISTRATION COMPLETED. SPOKE WITH PT DAUGHTER AND GAVE UPDATE. PT IS A/O, RESPIRATIONS EVEN AND REGUALR. SPO2 96% ON 2 L NC. CALL LIGHT WITHIN REACH.
--- NOTE | 2022-04-04 21:53 | NUR ---
ROUNDED ON PT. PT APPEARS TO BE SLEEPING COMFORTABLY. CALL LIGHT WITHIN REACH.
--- NOTE | 2022-04-04 23:55 | NUR ---
ROUNDED ON PT. PT IS ALERT. DENIES NEEDS/COMPLAINTS ATT. CALL LIGHT WITHIN REACH.
--- NOTE | 2022-04-05 00:45 | NUR ---
PATIENT CALLED TO USE THE RESTROOM. PATIENT GOT UP TO BEDSIDE COMMODE 1 PA. PATIENT ATTENDS WET AND CHANGED. NO URINE IN THE HAT. PATIENT STATED "I PEED ALL IN THE ATTENDS". PATIENT IS BACK IN BED. COFFEE PROVIDED PER PATIENT. CALL LIGHT WITHIN REACH.
--- NOTE | 2022-04-05 02:00 | NUR ---
PT ASSESSMENT COMPLETED. ASSISTED PT TO BEDSIDE COMMODE. PT AMBULATED WELL. REMAINS ON NC. CALL LIGHT WITHIN REACH.
--- NOTE | 2022-04-05 03:07 | NUR ---
CALLED TO ROOM TO ASSIST PT BACK TO BED. SHE HAD INDEPENDATLY GOTTEN UP TO USE RESTROOM AND WASH HER HAIR IN THE SINK. SPO2 DROPPED AND HR ELEVATED. ASSISTED PT BACK TO BED. SPO2 CURRENTLY AT97%ON 2L NC, HR 100. BED ALARM SET. CALL LIGHT WITHIN REACH.
--- NOTE | 2022-04-05 03:30 | NUR ---
ASSISTED PT WITH RINSING SHAMPOO OUT OF HAIR. GOWN CHANGED AND WARM BLANKESTS GIVEN. BED ALARM ON. CALL LIGHT WITHIN REACH.
--- NOTE | 2022-04-05 04:35 | NUR ---
ASSISTED PT WITH REPOSITIONING IN BED. PT REMAINS ON 2L NC, SPO2 95%. RESPIRATIONS EVEN AND REGULAR. PT IS A/O. CALL LIGHT WITHIN REACH.
--- NOTE | 2022-04-05 05:55 | NUR ---
MEDICATION ADMINISTRATION COMPLETED. PT IS A/O, RESPIRATIONS EVEN AND REGULAR. SPO2 MONITOR ON, PT REMAINS ON 2L NC. CALL LIGHT WITHIN REACH.
--- NOTE | 2022-04-05 07:16 | EKG ---
[facility] [address] [facility] [address] [place], [place] [address] Signed Atrial fibrillation Abnormal ECG No previous ECGs available Confirmed by CLARI WOOTEN MD ([id number]) on 04/05/2022 7:16:00 AM Electronically Signed By: CLARI WOOTEN MD 04/05/22 0716 PATIENT NAME: DAVID GUTIERREZ Electrocardiogram DATE OF : 42 PHYSICIAN: CLARI WOOTEN MD REPORT #: [id number] REPORT IS CONFIDENTIAL AND NOT TO BE RELEASED WITHOUT AUTHORIZATION
--- NOTE | 2022-04-05 07:41 | NUR ---
REPORT RECEIVED FROM MANN GUARDADO. KEVIN CAREY IN ROOM GETTING BS.
--- NOTE | 2022-04-05 07:50 | NUR ---
PT ASSISTED UP TO BATHROOM 1 PA FWW. LINENS CHANGED. CHAIR SET UP FOR PT. PT AM CARE COMPLETE. PT ASSISTED TO CHAIR FROM BATHROOM. LEGS ELEVATED. BLANKET PROVIDED. NO FURTHER NEEDS. CALL LIGHT WITHIN REACH
--- NOTE | 2022-04-05 08:23 | NUR ---
IN ROOM. PT IN CHAIR. BS TAKEN. FOOD TRAY BROUGHT IN. ICE WATER PROVIDED. RT IN ROOM TO PROVIDE BREATHING TX. NO NEEDS. CALL LIGHT WITHIN REACH
--- NOTE | 2022-04-05 09:02 | NUR ---
PT IN CHAIR. VITALS AND IS AND OS COMPLETE. PT DECLINED RESTROOM NEEDS. NO FURTHER NEEDS. CALL LIGHT WITHIN REACH
--- NOTE | 2022-04-05 10:36 | NUR ---
SITTING IN CHAIR VISITING WITH BROTHER.PATIENT PLANS TO DICHARGE HOME TO HER APARTMENT THAT PATIENT RENTS WITH HER BROTHER. PATIENT USES DME-- [employer] TO HELP WITH BALANCE.
--- NOTE | 2022-04-05 10:58 | NUR ---
PT HAS VISITOR IN ROOM.
--- NOTE | 2022-04-05 14:28 | NUR ---
PT FOUND UP BENDING OVER IN ROOM TRYING TO REACH A PAPER SHE HAD DROPPED. PT COUGHING AND SOB. ASSISTED TO BED AND OBTAINED PAPER FOR HER. ADMINISTERED MEDS INCLUDING TYLEON FOR HEADACHE. PT REPORTS BEING HOT, TURNED DOWN TEMP IN ROOM. PT DOING ACAPELA IN BED. ALARM SET. GIVEN MORE ICE WATER.
--- NOTE | 2022-04-05 19:35 | NUR ---
REPORT RECEIVED FROM MANN IYER. pt RESTING IN BED. ICE WATER PROVIDED. 3L OXYGEN BY NC IN PLACE. BED ALARM SET. CALL LIGHT IN REACH.
--- NOTE | 2022-04-05 20:35 | NUR ---
pt SITTING UP AT SIDE OF BED AFTER BREATHING TREATMENT. PRODUCTIVE COUGH. PRN COUGH MEDICATION ADMINISTERED. SBA TO BSC FOR VOID AND BACK TO BED. ASSESSMENT COMPLETE. 3L OXYGEN BY NC IN PLACE. CALL LIGHT AND PERSONAL SUPPLIES IN REACH. BED ALARM ON.
--- NOTE | 2022-04-05 22:43 | NUR ---
CHECKED ON pt. RESTING IN BED, EYES OPEN, RESTING. 3L OXYGEN BY NC IN PLACE. BED ALARM ON.
--- NOTE | 2022-04-05 23:31 | NUR ---
PATIENTS BED ALARM ALERTED STAFF. PATIENT ASSISTED TO THE BR A SBA W/FWW. PATIENT ABLE TO VOID. PATIENT STOOD AT SINK AND BRUSHED HER HAIR. PATIENT IS BACK IN BED RESTING. PATIENT THEN BACK UP TO BR A SBA W/FWW. PATIENT AGAIN BRUSHED HER HAIR. PATIENT IS AAOX4 AND ABLE TO ANSWER ALL ORIENTATION QUESTIONS. PATIENT IS BACK IN BED RESTING. WARM BLANKET PROVIDED. BED ALARM ON FOR SAFETY. CALL LIGHT IN REACH.
--- NOTE | 2022-04-05 23:50 | NUR ---
COFFEE PROVIDED TO pt REQUESTED. SOME CONFUSION NOTED. pt REORIENTED TO TIME OF DAY. pt STATES SHE WOULD LIKE BREATHING TREATMENT, RT NOTIFIED AND IN ROOM. BED ALARM ON.
--- NOTE | 2022-04-06 01:57 | NUR ---
BED ALARM SOUNDING. SBA WITH FWW TO BSC, SPO2 TITRATED TO 6L WITH AMBULATION. INCOINTINENT IN ATTENDS, NO ADDITIONAL VOID IN BSC. BACK IN BED. SPO2 TITRATED TO 2L OXYGEN BY NC. pt DENIES SOB. ASSESSMENT COMPLETE. IV SITE IN LEFT AC NOT PATENT. NEW IV STARTED RIGHT WRIST. BRISK BLOOD RETURN. CALL LIGHT IN REACH. BED ALARM ON.
--- NOTE | 2022-04-06 03:08 | NUR ---
BED ALARM SOUNDING. SBA WITH FWW TO BSC. pt UNABLE TO VOID, STATES "WITH THIS INFECTION I CAN'T TELL WHEN I NEED TO GO". pt CONFUSED UPON AWAKENING, REORIENTATION PROVIDED TO TIME OF DAY. BACK IN BED. BED ALARM ON. SNACK PROVIDED. CALL LIGHT IN REACH. BED ALARM ON.
--- NOTE | 2022-04-06 06:13 | NUR ---
pt AWAKE RESTING IN BED WITH OXYGEN TUBING OFF, TIED AROUND PILLOW. SPO2 90% ON RA. 2L OXYGEN BY NC REAPPLIED. SPO2 95% WITH 2L OXYGEN IN PLACE. VS COMPLETE. pt DENIES TOILETING NEEDS. CALL LIGHT IN REACH. BED ALARM ON. COFFEE AND WATER PROVIDED.
--- NOTE | 2022-04-06 07:26 | NUR ---
Recieved report from night supervisor nurse.
--- NOTE | 2022-04-06 09:50 | NUR ---
THIS NURSE IN TO CHECK ON PATIENT. FRESH WATER GIVEN. PT TALKATIVE AND WATCHING TV. IV FLUSHED, ROOM CLEANED UP. PT CURRENTLY HAS ON NASAL CANNULA. DENIES ANY OTHER CARE, CALL LIGHT IN REACH.
--- NOTE | 2022-04-06 12:03 | NUR ---
PATIENT IS RESTING IN BED, BED ALARM IS ON. BG CHECK DONE, PATIENT REQUIRES 1 UNIT OF INSULIN TO COVER. LUNCH IS IN ROOM.
--- NOTE | 2022-04-06 14:25 | NUR ---
PT TOILET LIGHT GOING OFF. PT UP FROM TOILET. PT ASSISTED TO CHAIR. RN IN ROOM. RN TO PROVIDE ICE WATER. PER RN PT TITRATED DOWN TO 3L NC. PT LEGS ELEVATED. PT VITALS COMPLETE. NO FURTHER NEEDS. CALL LIGHT WITHIN REACH
--- NOTE | 2022-04-06 14:43 | NUR ---
PATIENT IS UP TO THE CHAIR.
--- NOTE | 2022-04-06 15:53 | NUR ---
PATIENT STILL UP IN CHAIR WITH BLANKET AND PILLOW BEHIND HER. PT HAS FAMILY VISITING HER. SHE WOULD LIKE TO CONTINUE TO STAY IN THE CHAIR. PT ADVISED THIS NURSE THAT THE BURNING WITH URINATION IS IMPROVING. DENIES ANY OTHER CARES AT THIS TIME, CALL LIGHT IN REACH.
--- NOTE | 2022-04-06 17:10 | NUR ---
Spoke with pt and she states she was confused this morning. She plans on dc to home with brother. She has chronic 02 from [place]. She has a CPAP at home, but thinks its not working. She is unable to state why CPAP is not working and then states this may have been part of her confusion. She will have her brother bring in and we can plug it in and see if it is working. Pt is congested and coughing throughout visit.
--- NOTE | 2022-04-06 17:31 | NUR ---
Patient up in the chair for dinner. Denies any concerns. Pt is very content and talking.
--- NOTE | 2022-04-06 18:15 | NUR ---
PT NEEDED ASSISTANCE TO THE BATHROOM, STBY ASSIST/FWW. PT NEEDED EXTRA HELP STANDING, STEADY AFTER SHE WAS UP. PT WALKED TO BATHROOM, VOIDED, MARIA ISABEL CARE PERFORMED. PT AMBULATED BACK TO BED WITH WALKER. PT IS LAYING BERNARD IN BED WATCHING TV, BESIDE TABLE CLEANED W/BELONGINGS IN REACH. CALL LIGHT IN REACH. MALE FAMILY MEMBER IN ROOM. PT IN GOOD SPIRITS TELLING LIFE STORIES. NO COMPLAINTS OF PAIN.
--- NOTE | 2022-04-06 19:28 | NUR ---
RECEIVED REPORT FROM DAY SHIFT RN. PATIENT IS RESTING IN BED WATCHING TV. PATIENT DENIES ANY NEEDS. PATIENT IS ON 4L VIA NC. CALL LIGHT IN REACH.
--- NOTE | 2022-04-06 20:25 | NUR ---
PATIENT GOT UP TO USE THE RESTROOM. SBA. USING WALKER. CHANGED PULL UP. PATIENT WASHED HER HANDS. PATIENT IS BACK IN BED SITTING AT THE EDGE OF THE BED. PRIMARY RN WAS IN THE ROOM.
--- NOTE | 2022-04-06 20:30 | NUR ---
PATIENT ASSESMENT COMPLETED. PATIENTS VITALS TAKEN AND RECORDED. INTAKE AND OUTPUT RECORDED. PATIENTS PM MEDS PER ORDER. PATIENT REPORTS A COUGH, PRN MEDS PER ORDER. PATIENTS IV FLUSHED AND SL PER ORDER. PATIENT DENIES ANY PAIN. PATIENT IS ON 3L VIA NC. PATIENT PROVIDED WITH FRESH ICE WATER. PATIENT UP TO BR A SBA. PATIENT ABLE TO VOID. PATIENT IS BACK IN BED RESTING. NO FURTHER NEEDS NOTED. CALL LIGHT IN REACH. BED ALARM ON FOR SAFETY.
--- NOTE | 2022-04-06 22:08 | NUR ---
PATIENT RESTING IN BED WATCHING TV. PATIENT REMAINS ON 3L VIA NC. PATIENT DENIES ANY NEEDS. CALL LIGHT IN REACH. BED ALARM ON FOR SAFETY.
--- NOTE | 2022-04-06 23:03 | NUR ---
PATIENT REPOSITIONED IN BED. PATIENT DENIES ANY NEEDS. CALL LIGHT IN REACH. PATIENT REMAINS ON 3L VIA NC. BED ALARM ON FOR SAFETY.
--- NOTE | 2022-04-07 00:43 | NUR ---
RT IN ROOM. PATIENT JUST FINISHED NEB TX. PATIENT ASSISTED TO THE BR A SBA W/FWW. PATIENT ABLE TO VOID. PATIENT IS BACK IN BED RESTING. PATIENT IS ON 3L NC. PATIENT PROVIDED SNACK. PATIENT DENIES ANY SOB. NO FURTHER NEEDS NOTED. CALL LIGHT IN REACH.
--- NOTE | 2022-04-07 05:50 | NUR ---
AM MEDS GIVEN PER ORDER. PATIENT REPORTS HEADACHE/SINUS PAIN, PRN TYLENOL GIVEN PER ORDER. FRESH COFFEE PROVIDED PER REQUEST. PATIENT IS STILL ON 3L VIA NC. NO FURTHER NEEDS NOTED. CALL LIGHT IN REACH. BED ALARM ON FOR SAFETY.
--- NOTE | 2022-04-07 06:40 | NUR ---
PATIENT UP TO SCALE PER PATIENT REQUEST. PATIENTS STANDING WEIGHT. PATIENT IS BACK IN BED RESTING. PATIENT DENIES ANY FURTHER NEEDS. CALL LIGHT IN REACH. NO BED ALARM ON FOR SAFETY.
--- NOTE | 2022-04-07 07:15 | NUR ---
bedside report from Pooja marquez, pt in bed with even resp, oxygen on, and call light in reach - did not disturb. fast food shift lead reports plan to poss dc home today.
--- NOTE | 2022-04-07 07:50 | NUR ---
RECEIVED REPORT FROM FINISH REMOVER NURSE. PATIENT ASLEEP IN BED AT THIS TIME, WITH NASAL CANNUAL ON, BED ALARM SET.
--- NOTE | 2022-04-07 08:57 | NUR ---
PATIENT UP TO BR WITH SBA FOR BM. LINEN CHANGED, VITALS AND I&OS CHARTED, CALL LIGHT IN EASY REACH.
[2022-04-07] MEDS ORDERED: CEPHALEXIN250 MG PO (10:12)
[2022-04-07] MEDS ORDERED: PREDNISONE20 MG PO (10:17)
--- NOTE | 2022-04-07 11:30 | NUR ---
DISCHARGE VITALS CHARTED. PATIENT DRESSED IN PERSONAL CLOTHING AND WHEELED OUT BY THIS ASSISTANT DIRECTOR OF RESIDENCE LIFE AND STUDENT KERI. PATIENT HAS BAG OF PERSONAL ITEMS WITH HER.
--- NOTE | 2022-04-07 11:40 | NUR ---
PATIENT DISCHARGED TO HOME WITH BROTHER LOUIS. PT HAS HOME OXYGEN. BROTHER FORGOT HER OXYGEN AND DENIES GOING HOME TO GET IT. BROTHER AND PATIENT STATE THAT SHE NORMALLY DOES NOT TRAVEL WITH HER OXYGEN AND DENIES NEEDING IT UNTIL HOME. NURSE ADVISED THAT PATIENT IS CURRENTLY NEEDING OXYGEN AT ALL TIMES AND TO PLACE IT ON PATIENT SOON HOME. PT GIVEN HOME EYE DROPS BACK TO HER.
--- NOTE | 2022-04-07 13:52 | NUR ---
CONNECTED WITH PTS' BROTHER LOUIS. HAD PLEASANT VISIT-PT IS TO DC LATER TODAY. WILL FOLLOW
== END 2022-04-07 11:40 | disposition home or self-care (01) | DRG 191 ==
LOC: ED 23:27 → MS 23:29
PROVIDERS: ADMIT Internal Medicine; ATTEND Internal Medicine
DX: J44.1 Chronic obstructive pulmonary disease with (acute) exacerbation (principal); I48.19 Other persistent atrial fibrillation; J96.11 Chronic respiratory failure with hypoxia; Z20.822 Contact with and (suspected) exposure to COVID-19; Z66 Do not resuscitate; B97.4 Respiratory syncytial virus as the cause of diseases classified elsewhere; G89.29 Other chronic pain; H40.9 Unspecified glaucoma; M54.50 Low back pain, unspecified; E11.65 Type 2 diabetes mellitus with hyperglycemia; G25.81 Restless legs syndrome; I10 Essential (primary) hypertension; Z85.3 Personal history of malignant neoplasm of breast; Z85.828 Personal history of other malignant neoplasm of skin; Z90.13 Acquired absence of bilateral breasts and nipples; Z90.49 Acquired absence of other specified parts of digestive tract; Z90.89 Acquired absence of other organs; Z90.710 Acquired absence of both cervix and uterus; Z98.51 Tubal ligation status; Z88.8 Allergy status to other drugs, medicaments and biological substances; Z79.01 Long term (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 of anticoagulants; Z79.84 Long term (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 of oral hypoglycemic drugs; Z79.899 Other long term (current) drug therapy
CPT/HCPCS: 36415; 71045; 80053; 81001; 83036; 83880; 84484; 85025; 87088; 93005; 93010; 94640; 94668; A9270; C9803; J1815; J1885; J1940; J2920; J2930; J7512; U0003

== ENCOUNTER 2022-05-20 17:08 | Emergency (ER) | payer MEDICARE ==
[~2022-05-20] VITALS: Ht 160 cm; Wt 115.8 kg
--- NOTE | ~2022-05-20 | EKG ---
[facility] [address] [facility] [place], [place] [address] Draft EK completed, results pending confirmation PATIENT NAME: DAVID GUTIERREZ TYLER Electrocardiogram DATE OF : 42 PHYSICIAN: PRELIMINARY REPORT #: [id number] REPORT IS CONFIDENTIAL AND NOT TO BE RELEASED WITHOUT AUTHORIZATION
[~2022-05-20 17:08] MED LIST changes: +ALBUTEROL2.5 MG/3 M INH; +ARTHRITIS PAIN150 GM TOP; +CEPHALEXIN250 MG PO; +CYCLOBENZAPRINE10 MG PO; +HYDROCODON-ACE1 EA10 PO; +KETOCONAZOLE120 ML TOP; +LATANOPROST2.5 ML OU; +OMEPRAZOLE40 MG PO; +TRELEGY ELLIPT1 EACH INH
--- OUTSIDE RECORDS SUMMARY | 2022-05-20 17:11 | XMS ---
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 Connie VISIT COUNT (12 MO.) 1 Lawson David TOTAL 8 NOTE: Visits indicate total known visits. ED/UCC VISIT TRACKING (12 MO.) 05/20/2022 17:08 [facility] [place] TYPE: Emergency COMPLAINT: - SHORTNESS OF BREATH 04/09/2022 09:37 [facility] [place] TYPE: Emergency COMPLAINT: - DIFFICULTY BREATHING 04/03/2022 23:28 [facility] [place] TYPE: Emergency COMPLAINT: - FEELING SICK AND SWEATING ALOT 04/01/2022 19:47 [facility] [place] TYPE: Emergency COMPLAINT: - FEVER DIAGNOSES: - Respiratory syncytial virus as the cause of diseases classified elsewhere - Shortness of breath - Chronic obstructive pulmonary disease with (acute) exacerbation - Type 2 diabetes mellitus without complications - 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 - Contact with and (suspected) exposure to COVID-19 - Essential (primary) hypertension - Dependence on supplemental oxygen - Allergy status to other drugs, medicaments and biological substances - terminal carman (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 of oral hypoglycemic drugs 01/29/2022 16:11 [facility] [place] TYPE: Emergency COMPLAINT: - FALL, NECK/R SIDE ABD/HIP PAIN DIAGNOSES: - Allergy status to other drugs, medicaments and biological substances - Chronic obstructive pulmonary disease, unspecified - Strain of muscle, fascia and tendon of lower back, initial encounter - Other long-term (current) drug therapy - Fall on same level from slipping, tripping and stumbling without subsequent striking against object, initial encounter - Strain of muscle, fascia and tendon at neck level, initial encounter - Contusion of right hip, initial encounter - senior living (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 of oral hypoglycemic drugs - Essential (primary) hypertension - Pain in right hip - Type 2 diabetes mellitus without complications 12/21/2021 16:37 [facility] [place]: Emergency DIAGNOSES: - SOB, rapid HR - Shortness of Breath - Dyspnea, unspecified 12/21/2021 10:22 [facility] TYPE: Emergency COMPLAINT: - SOB, LOW O2 SATS DIAGNOSES: - Type 2 diabetes mellitus without complications - Essential (primary) hypertension - 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 - Unspecified asthma with (acute) exacerbation - Contact with and (suspected) exposure to COVID-19 - Personal history of malignant neoplasm of breast - Shortness of breath - senior living (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 of systemic steroids - Allergy status to other drugs, medicaments and biological substances - senior living (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 of oral hypoglycemic drugs 06/20/2021 15:58 [facility] [place] TYPE: Emergency COMPLAINT: - HEAD ACHE,COUGH, FLEM DIAGNOSES: - Essential (primary) hypertension - Acute upper respiratory infection, unspecified - Other long-term (current) drug therapy - Type 2 diabetes mellitus without complications - Allergy status to other drugs, medicaments and biological substances - Cough, unspecified - Personal history of malignant neoplasm of breast - terminal carman (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 of oral hypoglycemic drugs - Chronic obstructive pulmonary disease with (acute) exacerbation - Contact with and (suspected) exposure to COVID-19 INPATIENT VISIT TRACKING (12 MO.) 04/09/2022 09:38 [facility] [place] TYPE: Observation COMPLAINT: - ACUTE ON CHRONIC HYPOXIC RESPIRATORY FAILURE, AFIB DIAGNOSES: - Other long-term (current) drug therapy - Restless legs syndrome - senior living (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 of anticoagulants - Type 2 diabetes mellitus without complications - Allergy status to other drugs, medicaments and biological substances - Dependence on other enabling machines and devices - Contact with and (suspected) exposure to COVID-19 - Shortness of breath - Other chronic pain - terminal carman (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 of oral hypoglycemic drugs - Respiratory syncytial virus as the cause of diseases classified elsewhere - Dorsalgia, unspecified - Dependence on supplemental oxygen - Chronic obstructive pulmonary disease with (acute) exacerbation - Essential (primary) hypertension - Weakness - Unspecified atrial fibrillation 04/04/2022 09:57 [facility] [place] TYPE: Medical Surgical COMPLAINT: - RSV ILLNESS COPD DIAGNOSES: - Other chronic pain - Acquired absence of other specified parts of digestive tract - Other persistent atrial fibrillation - 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 - terminal carman (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 of oral hypoglycemic drugs - Chronic respiratory failure with hypoxia - Essential (primary) hypertension - Personal history of other malignant neoplasm of skin - Chronic respiratory failure with hypoxia - Acquired absence of bilateral breasts and nipples - Low back pain, unspecified - Personal history of malignant neoplasm of breast - Acquired absence of other organs - Other chronic pain - Do not resuscitate - Acquired absence of bilateral breasts and nipples - Type 2 diabetes mellitus with hyperglycemia - Acquired absence of other organs - Contact with and (suspected) exposure to COVID-19 - Low back pain, unspecified - Essential (primary) hypertension - Other long-term (current) drug therapy - Other persistent atrial fibrillation - Respiratory syncytial virus as the cause of diseases classified elsewhere - terminal carman (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 of oral hypoglycemic drugs - Chronic obstructive pulmonary disease with (acute) exacerbation - Personal history of other malignant neoplasm of skin - Contact with and (suspected) exposure to COVID-19 - senior living (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 of anticoagulants - senior living (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 of anticoagulants - Do not resuscitate - Respiratory syncytial virus as the cause of diseases classified elsewhere - Allergy status to other drugs, medicaments and biological substances - Restless legs syndrome - Unspecified glaucoma - Acquired absence of both cervix and uterus - Personal history of malignant neoplasm of breast - Tubal ligation status - Acquired absence of other specified parts of digestive tract - Unspecified glaucoma - Acquired absence of both cervix and uterus - Tubal ligation status - Type 2 diabetes mellitus with hyperglycemia - Allergy status to other drugs, medicaments and biological substances - Restless legs syndrome [email or web address]
--- NOTE | 2022-05-21 21:30 | EKG ---
[facility] [address] [facility] [place] [address] Signed Atrial fibrillation with rapid ventricular response Abnormal ECG When compared with ECG of 20-MAY-2022 17:25, (Unconfirmed) Previous ECG has undetermined rhythm, needs review ST now depressed in Lateral leads Nonspecific T wave abnormality, improved in Inferior leads Nonspecific T wave abnormality, improved in Anterolateral leads QT has lengthened Confirmed by LY MIGUEL MD ([id number]) on 05/21/2022 9:30:01 PM Electronically Signed By: LY MIGUEL MD 05/21/222129 PATIENT NAME: DAVID GUTIERREZ Electrocardiogram DATE OF : 42 PHYSICIAN: LY MIGUEL MD REPORT #: [id number] REPORT IS CONFIDENTIAL AND NOT TO BE RELEASED WITHOUT AUTHORIZATION
== END 2022-05-20 21:00 | disposition home or self-care (01) ==
LOC: ED 17:08
DX: J44.1 Chronic obstructive pulmonary disease with (acute) exacerbation (principal); Z20.822 Contact with and (suspected) exposure to COVID-19; I10 Essential (primary) hypertension; E11.9 Type 2 diabetes mellitus without complications; Z85.3 Personal history of malignant neoplasm of breast; Z88.8 Allergy status to other drugs, medicaments and biological substances; Z79.899 Other long term (current) drug therapy; Z79.84 Long term (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 of oral hypoglycemic drugs
CPT/HCPCS: 36415; 51701; 71045; 80053; 81001; 83605; 85025; 85610; 85730; 87502; 93005; 93010; 99285-25; C9803; J2543; J2930; U0003

== ENCOUNTER 2023-03-02 14:43 | Inpatient (IN) | payer MEDICARE, OTHER ==
[~2023-03-02] VITALS: Ht 160 cm; Wt 104.1 kg
--- NOTE | ~2023-03-02 | EKG ---
[facility] [address] [facility] [place], [place] [address] Draft EK completed, results pending confirmation PATIENT NAME: DAVID GUTIERREZ TYLER Electrocardiogram DATE OF : 42 PHYSICIAN: PRELIMINARY REPORT #: [id number] REPORT IS CONFIDENTIAL AND NOT TO BE RELEASED WITHOUT AUTHORIZATION
--- NOTE | ~2023-03-02 | EKG ---
[facility] [address] [facility] [place], [place] [address] Draft EK completed, results pending confirmation PATIENT NAME: DAVID GUTIERREZ TYLER Electrocardiogram DATE OF : 42 PHYSICIAN: PRELIMINARY REPORT #: [id number] REPORT IS CONFIDENTIAL AND NOT TO BE RELEASED WITHOUT AUTHORIZATION
--- NOTE | ~2023-03-02 | EKG ---
[facility] [address] [facility] [place], [place] [address] Draft EK completed, results pending confirmation PATIENT NAME: DAVID GUTIERREZ TYLER Electrocardiogram DATE OF : 42 PHYSICIAN: PRELIMINARY REPORT #: [id number] REPORT IS CONFIDENTIAL AND NOT TO BE RELEASED WITHOUT AUTHORIZATION
--- NOTE | ~2023-03-02 | EKG ---
[facility] [address] [facility] [place], [place] [address] Draft EK completed, results pending confirmation PATIENT NAME: DAVID GUTIERREZ TYLER Electrocardiogram DATE OF : 42 PHYSICIAN: PRELIMINARY REPORT #: [id number] REPORT IS CONFIDENTIAL AND NOT TO BE RELEASED WITHOUT AUTHORIZATION
[~2023-03-02 14:43] MED LIST changes: +LASIX40 MG PO; +MACROBID 100 M100 MG PO; +METHOCARBAMOL500 MG PO
[2023-03-02 15:33] LABS: BASOPHILS 0.7 % (0-2); EOSINOPHILS 1.4 % (0-6); HEMATOCRIT 37.7 % (35.0-50.0); HEMOGLOBIN 11.9 g/dL (12.0-18.0); LYMPHOCYTES 15.7 % (24-44); MCH 27.7 (27-36); MCHC 31.6 g/dl (30-36); MCV 87.9 fl (81-99); MONOCYTES 9.3 % (0-12); NEUTROPHILS 72.9 % (39-80); PLATELET COUNT 269 K/uL (140-440); RDW 15.3 (10.5-15.0)
[2023-03-02 15:57] LABS: ALBUMIN 3.7 g/dL (3.4-5.0); ALBUMIN/GLOBULIN RATIO 0.95 (1.1-2.4); ANION GAP 7.7 (7-21); BILIRUBIN, TOTAL 0.5 ng/dL (0.2-1.0); BUN/CREATININE RATIO 11.11 (6.0-28.6); CALCIUM 9.4 mg/dL (8.5-10.1); CREATININE, SERUM 0.9 mg/dL (0.55-1.02); MAGNESIUM 1.8 mg/dL (1.8-2.4); POTASSIUM 3.7 mmol/L (3.5-5.1); PROTEIN, TOTAL 7.6 g/dL (6.4-8.2)
--- NOTE | 2023-03-02 18:30 | NUR ---
PT ARRIVES FROM ER. RECEIVED REPORT FROM MANN PELAEZ. ASSUMING CARE OF PT.
[2023-03-02 18:43] VITALS: BP 143/107
--- NOTE | 2023-03-02 19:20 | NUR ---
Patient resting in bed, appears comfortable, no noted resp distress, Report provided by day shift RN, call light within reach.
[2023-03-02 20:07] VITALS: BP 146/78
--- NOTE | 2023-03-02 20:25 | NUR ---
call light answered, pt found standing next to bed, attends off and heavily incontinent of urine. pt assisted back in bed, jeevan care done and new attends with purewick in place with help from primary rn gucci. pt educated to use call light before getting out of bed, bed alarm on for safety and call light in reach. gucci in room completing pt care.
--- NOTE | 2023-03-02 21:00 | NUR ---
on phone with dr mixon, per charge report pt diabetic and md reports adding pt on insulin ss. telephone order read back to start pt on insulin ss, insulin novalog (lispro) wmhs, moderate scale. this rn placed orders in emar along with hypoglycemia protocol orders-see emar. pt also remains restless in bed, hx rls. telephone order read back to also add secondary diet of 60g ada. pt reports taking gabapentin 600 mg po bid, appears very clear and adamant on home routine/dose. primary rn also discussed gabapentin order with md mixon. pt also takes mirapex but unable to report exact dose, unsure as pharmacy has yet to complete med rec. call received from dr alvarez and was given telephone order read back to give 0.125 mg po mirapex x1 now and md with verifiy home mirapex orders with pharmacy in the morning. primary rn gucci updated and aware.
--- NOTE | 2023-03-02 23:10 | NUR ---
Patient has had restless legs for since 2099. MD has been contacted and patients Gabapentin and Mirapex have been given. Continues to complain, Has to get up at bedside and walked in place with 1 person assist and FWW, gait unsteady and acitivity causes increased SOB. Medicated with tylenol for discomfort, Evening assessment, VSS, lungs diminished with crackles in bases, On 3L/NC keeping sats >92%, Tele intact and sinus tach @ rate of 100. Denies CP. Patient states she feels her breathing is g etting better but still slight SOB at rest with increased dyspnea with activity. 2+ edema to legs bilat, Purewick in place with clear yellow urine, One episode of non productive cough. Charge nurse in finishing assessment with patient.
[2023-03-03] VITALS (7 sets, daily range): BP systolic 110–154; BP diastolic 48–97
--- NOTE | 2023-03-03 00:30 | NUR ---
REMAINING ADMISSION COMPLETED, pt AWAKE ADN RESTING IN BED-ON 2LNC. PER pt, SHE WEARS 2-3LNC "WHEN I NEED IT". pt DENEIS USE OF CPAP/BIPAP W/ SLEEP APNEA. pt SITTING ON EDGE OF BED, ALARM ON AND CALL LIGHT IN REACH. pt REMAINS RESTLESS R/T HX OF RLS, BUT STARTING TO IMPROVE PER pt. pt LEFT WATCHING TV, WILL CONTINUE TO MONITOR.
--- NOTE | 2023-03-03 01:17 | NUR ---
Patient calm at this time, no coughing, restlessness has decreased, appears comfortable with eyes closed and HOB up, bed alarm on, call light within reach.
--- NOTE | 2023-03-03 02:51 | NUR ---
Patient continues resting, awoken for assessment, Vital signs stable, patients restless legs have calmed down, Patient denies any problems, no noted resp distress, lights are out, call light within reach and bed alarm on.
--- NOTE | 2023-03-03 05:20 | NUR ---
Patient awake, had a large incont urine output, purewick changed and repositioned, pericare provided, patient up at bedside with 1 person assist and using FWW. Standing weight done 104.9kg, down 1 kilogram from yesterday. VSS. Patient c/o back discomfort after lying for long period. Getting up and moving helped. Is now back to bed, lights are out, and call light within reach.
[2023-03-03 05:48] LABS: BASOPHILS 0.6 % (0-2); EOSINOPHILS 0.1 % (0-6); HEMATOCRIT 36.6 % (35.0-50.0); HEMOGLOBIN 11.6 g/dL (12.0-18.0); LYMPHOCYTES 15.6 % (24-44); MCH 27.6 (27-36); MCHC 31.7 g/dl (30-36); MCV 87.1 fl (81-99); NEUTROPHILS 77.7 % (39-80); PLATELET COUNT 242 K/uL (140-440); RDW 15.1 (10.5-15.0)
[2023-03-03 07:06] LABS: ANION GAP 11.3 (7-21); BUN/CREATININE RATIO 12.5 (6.0-28.6); CALCIUM 9.2 mg/dL (8.5-10.1); CREATININE, SERUM 0.96 mg/dL (0.55-1.02); MAGNESIUM 1.8 mg/dL (1.8-2.4); POTASSIUM 4.3 mmol/L (3.5-5.1)
--- NOTE | 2023-03-03 08:05 | NUR ---
Patient sitting up on edge of bed, alert and oriented x4. Patient reports she is very uncomfortable due to restless leg. Provider at bedside. Call light within reach.
[2023-03-03] MEDS ORDERED: POTASSIUM CHLO10 MEQ PO (08:17)
[2023-03-03] MEDS ORDERED: ROBAFEN DM 200118 ML PO (09:35)
--- NOTE | 2023-03-03 09:36 | NUR ---
Patient incontinent. Gown and brief changed at this time. Patient ambulated to chair. Patient remains restless; Mirapex recently admin per provider order. Patient remains on 2L oxyen per nc, sp02 99%.
--- NOTE | 2023-03-03 09:36 | NUR ---
MED REC COMPLETE
--- NOTE | 2023-03-03 09:42 | NUR ---
REVIEW DEMOGRAPHICS WITH PATIENT. SHE IS ALERT AND ORIENTED, SITTING UP IN RECLINER. OXYGEN IN PLACE. STATES SHE LIVES IN HOME WITH BROTHER, 2 STEPS INTO LIVINGROOM, HAS DIFFICULTY WITH THESE STEPS. STATES NO OTHER STAIRS IN HOME. HAS WALKER, CANE, BIPAP THROUGH [facility], OXYGEN THROUGH [facility]. STATES SHE DOES NOT WEAR HER OXYGEN ALL THE TIME, JUST WHEN SHE FEELS SHE NEEDS IT. DOES NOT DRIVE, BROTHER PROVIDES TRANSPORTATION. STATES NO FINANCIAL DIFFICULTY BECAUSE HER AND HER BROTHER SHARE EVERYTHING. STATES SHE IS HAVING DIFFICULTY WITH BIPAP MACHINE. SEEMS TO PULL IT OFF FREQUENTLY AT NIGHT AND IS WANTING SOMEONE TO CHECK HER MACHINE FOR HER. [employer] NUMBER PROVIDED TO PATIENT SO SHE MAY CALL AND REQUEST THEY CHECK HER MACHINE. DENIES OTHER NEEDS. INSTRUCTED TO NOTIFY STAFF IF NEEDS ARISE. VERBALIZES UNDERSTANDING.
--- NOTE | 2023-03-03 10:40 | NUR ---
UR NOTE - [facility], [facility] Inpatient. Admit 03/02/2023, Met Clinical indications for Inpatient Care. Guideline day 1.
--- NOTE | 2023-03-03 10:57 | NUR ---
UR Note - [facility] [place] Heart Failure ISC, inpatient. 03/03/2023 - Variance for guideline day 2 entered.
--- NOTE | 2023-03-03 11:51 | NUR ---
HAY. PT EXHIBITED GRATITUDE; STRONG JANINA RESOURCES; CONSENTED TO PRAYER. PROVIDED HOSPTIALITY; GAVE PRAYER SHAWL; PROVIDED ASSOCIATE MEDICAL DIRECTOR EDUCATION; PROVIDED PRAYER.
--- NOTE | 2023-03-03 15:36 | NUR ---
Assisted patient from chair to bed. Patient reports she new onset of chest pain when she has deep inspirations only. TORB from Dr. Gerber for an EKG now and to restart patient's home dose of metoprolol po and latanoprost eyes drops.
--- NOTE | 2023-03-03 15:37 | NUR ---
1537: PT NOTED TO HAVE ELEVATED HR HIGH 205 ON TELE MONITOR. THIS RN IN ROOM TO ASSESS. RT IN ROOM ALREADY PREPARING TO COMPLETE EKG FOR PT REPORTED CHEST PAIN. VS AT THIS TIME: 139/79 (93), HR 88, 96% ON 2L NC. 1546: MD NOTIFIED BY THIS RN. TELEPHONE ORDER RECEIVED FOR 5MG LOPRESSOR IV PUSH ONCE. 1552: 5MG LOPRESSOR IV PUSH ONCE ADMINISTERED. PT REPORTS PAIN IN LEFT SHOULDER WITH PAIN RADIATING FROM FRONT LEFT LOWER LUNG AREA THROUGH BACK. 1604: VS AT THIS TIME, 121/59 (73), HR 82, 94% ON 2L NC. 1608: MD UPDATED VIA TELEPHONE. REPEAT EKG REQUESTED. RT NOTIFIED. 1615: MD AT PT BEDSIDE TO ASSESS - VERBAL ORDERS RECEIVED TO RESTART HOME DOSE XERALTO, TROPONIN DRAW NOW AND REPEAT IN 3 HOURS, 2MG MORPHINE IV PUSH ONCE, 0.4MG SUBLINGUAL NITRO ONCE. PRIMARY RN NOTIFIED TO CALL MD IF CHEST PAIN IS UNRELEIVED IN 30 MIN AFTER MORPHINE AND NITRO DOSE. RIGHT WRIST XRAY AND ONE TIME ADDITIONAL DOSE OF MIRAPEX NOW. PRIMARY RN UPDATED ON POC.
--- NOTE | 2023-03-03 16:00 | NUR ---
PUREWICK IN PLACE AND SUCTION ON AT THIS TIME.
--- NOTE | 2023-03-03 16:16 | NUR ---
Dr. Gerber at bedside with patient.
--- NOTE | 2023-03-03 16:41 | NUR ---
PATIENT SITTING UP, NOTABLY RESTLESS. PATIENT RECEIVED MORPHINE 2MG IV AND 0.4 NITROGLYCERIN SL TAB. BP STABLE, TAKEN PRIOR TO ADMIN. PATIENT REPORTS HER CHEST PAIN IS GETTING A BIT BETTER. SHE REMAINS ON 2L OXYGEN PER NC, RESPIRATIONS NON LABORED. SPO2 98% AT THIS TIME.
--- NOTE | 2023-03-03 17:24 | NUR ---
PATIENT IN BED RESTING, NO ACUTE DISTRESS. PATIENT REPORTS HER CHEST PAIN HAS RESOLVED.
--- NOTE | 2023-03-03 19:15 | NUR ---
Patient resting in bed and on phone talking to her daughter, no noted resp distress, RR even and unlabored, Report provided by kb RN. Call light within patient reach.
--- NOTE | 2023-03-03 21:35 | NUR ---
Patient in bed, HOB elevated, no noted distress, VSS, lungs diminishe with scattered faint wheeze, Patient denies CP or SOB at this time, Continues to have 2+ edema to lower legs bilat. Purewick in place, Slight restless legs and given medication. Is watching TV, Had episode of thinking she was at home in [place] when I stated no she then stated "i'm in residential". I reoriented her to hospital setting then asked patient if she knew the year and who president was and then re asked her if she knew where she was and patient was oriented to all questions. Have bed alarm on for patient safety. Blood sugar check was 183 and patient given 3u insulin per SS.
--- NOTE | 2023-03-03 22:20 | NUR ---
Patient up with walker ambulating in krishna to nurses stations wondering whats going on, unclear as to why bed alarm did not activate. Assisted patient back to bed, oriented patient to situation and need to call RN for assist. Patient tolerated thw activity well with no noted increase in SOB. Resting now with call light within reach. Bed alarm on and had it double checked with smelter charger.
--- NOTE | 2023-03-04 00:01 | NUR ---
Patient called and stating she needed to void, explained to her that she had the purewick in place and she could go ahead and void, patient did without difficulty. She is resting comfortable in bed. Patient had no further needs.
[2023-03-04 02:17] VITALS: BP 140/96
--- NOTE | 2023-03-04 02:47 | NUR ---
Patient awake, VSS, but patient is having continued confusion thinking it is 2020, she thinks she is at home, wants to make new curtains, wants to rearrange the furniture. When told she is in the hospital and we need to leave the furnitur the way it is, pt stated "Im 82 and I can do what I want". She did know who the president is, She is up sitting on the edge of the bed now, she is calm with no noted distress, She shows no stroke sx and blood sugar check is 150. Patient does not want to lay back down, Bed alarm is on. Will continue monitoring and if confusion worsens will notify ,
--- NOTE | 2023-03-04 03:43 | NUR ---
Patient up ambulated to with FWW. Is now back to bed and looks like she is going to try and go back to sleep. Has been talking about the rearranging of the furniture for sometime, otherwise she remains cooperative and pleasant. Will continue to monitor closely, Bed alarm is on, call light is within reach.
--- NOTE | 2023-03-04 04:12 | NUR ---
MD present on floor and updated on patients increased confusion. Order for UA given. Will obtain when able, Patient is finally laying down, appears comfortable, no distress, RR even and unlabored, O2 on @ 2L/NC. Will allow patient to rest.
--- NOTE | 2023-03-04 05:00 | NUR ---
Patient has not had a good night of rest. VS have been stable, Has remained on O2 @ 2L/NC through the night with Sats >95%. At the start of the shift patient was noted to have slight disorientation with where she was and was easily reoriented. As the shift progressed so did patients confusion (see earlier notes) At around 0400 patient laid back down and fell asleep and has been resting comfortably since, no noted distress, RR even and unlabored and will allow patient to rest uninterrupted. VSS aware of above, Will need UA done and will attempt this with patients next void.
[2023-03-04 05:36] VITALS: BP 133/75
[2023-03-04 05:46] LABS: BILIRUBIN, URINE NEGATIVE (negative); BLOOD/HGB, URINE NEGATIVE (Negative); KETONE, URINE NEGATIVE (Negative); LEUK ESTERASE, URINE NEGATIVE (negative); NITRITE, URINE NEGATIVE (negative)
[2023-03-04 05:53] LABS: CRYSTALS, URINE NONE SEEN (0-1+); EPITHELIAL CELLS, URINE SQUAMOUS 1+ /lpf (0-1+); RED BLOOD CELLS, URINE 0-1 /hpf (0-5)
--- NOTE | 2023-03-04 05:53 | NUR ---
Patient mentaltion clearing some, assisted up to BR and clean catch urine obtained for UA. VSS remain stable, Assisted back to bed purewick changed and pericare provided. Patient in bed now resting, no noted resp distress, has been on 2L O2/NC through the night with sats >95%. Bed alarm is on. At this time lights are out and patients call light within reach.
[2023-03-04 05:54] LABS: BACTERIA, URINE 3+ /hpf (negative); CASTS, URINE NONE SEEN \\lpf; REFLEX CULTURE, URINE No (No)
[2023-03-04 05:54] LABS: ANION GAP 8.8 (7-21); BUN/CREATININE RATIO 19.49 (6.0-28.6); CALCIUM 9.3 mg/dL (8.5-10.1); CREATININE, SERUM 1.18 mg/dL (0.55-1.02); MAGNESIUM 1.9 mg/dL (1.8-2.4); POTASSIUM 3.8 mmol/L (3.5-5.1)
[2023-03-04 09:08] VITALS: BP 135/75
[2023-03-04] MEDS ORDERED: PREDNISONE20 MG PO (10:38)
--- NOTE | 2023-03-04 10:43 | NUR ---
ROUNDS. PT APPEARED TO BE ASLEEP IN CHAIR. DID NOT ROUSE AT MY KNOCK. DID NOT DISTURB. PROVIDED PRAYER. LEFT PRAYER CARD AND CONTACT CARD.
[2023-03-04] MEDS ORDERED: CEFADROXIL500 MG PO (10:47)
--- NOTE | 2023-03-04 10:51 | NUR ---
UR NOTE [facility] HEART FAILURE (ISC) 03/04/23 MET GL DAY 2
--- NOTE | 2023-03-04 11:47 | NUR ---
PATIENT UP IN CHAIR, NO DISTRESS. PATIENT DENIES SOB AND OR CHEST PAIN. PATIENT ON 2L OXYGEN PER NC, RESPIRATIONS NON LABORED. PATIENT HAS NO CURRENT NEEDS, PERSONAL SUPPLIES AND CALL LIGHT WITHIN REACH.
[2023-03-04 12:31] VITALS: BP 135/75
== END 2023-03-04 13:25 | disposition home or self-care (01) | DRG 291 ==
LOC: ED 14:43 → MS 17:08
PROVIDERS: Emergency Medicine; ADMIT Internal Medicine; ATTEND Internal Medicine
DX: I11.0 Hypertensive heart disease with heart failure (principal); I50.33 Acute on chronic diastolic (congestive) heart failure; J44.1 Chronic obstructive pulmonary disease with (acute) exacerbation; J96.11 Chronic respiratory failure with hypoxia; N39.0 Urinary tract infection, site not specified; M54.9 Dorsalgia, unspecified; G89.29 Other chronic pain; E11.9 Type 2 diabetes mellitus without complications; I48.91 Unspecified atrial fibrillation; G25.81 Restless legs syndrome; H40.9 Unspecified glaucoma; Z87.11 Personal history of peptic ulcer disease; Z85.828 Personal history of other malignant neoplasm of skin; Z85.3 Personal history of malignant neoplasm of breast; Z86.718 Personal history of other venous thrombosis and embolism; Z90.13 Acquired absence of bilateral breasts and nipples; Z98.890 Other specified postprocedural states; Z90.49 Acquired absence of other specified parts of digestive tract; Z90.710 Acquired absence of both cervix and uterus; Z90.89 Acquired absence of other organs; Z98.51 Tubal ligation status; Z88.8 Allergy status to other drugs, medicaments and biological substances; Z79.51 Long term (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 of inhaled steroids; Z79.84 Long term (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 of oral hypoglycemic drugs; Z79.899 Other long term (current) drug therapy; Z87.891 Personal history of nicotine dependence; Z79.01 Long term (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 of anticoagulants
CPT/HCPCS: 36415; 71045; 73110; 80048; 80053; 81001; 83735; 83880; 84484; 85025; 93005; 93010; 93308; 94640; 94667; 94668; 94760; 96374; 97162; 97165; 97535; 99285-25; A9270; J1815; J1940; J2270; J2405; J7512

== ENCOUNTER 2023-03-13 10:41 | Emergency (ER) | payer MEDICARE, OTHER ==
[~2023-03-13] VITALS: Ht 160 cm; Wt 107.6 kg
[~2023-03-13 10:41] MED LIST changes: +CEFADROXIL500 MG PO; +POTASSIUM CHLO10 MEQ PO; +ROBAFEN DM 200118 ML PO
--- OUTSIDE RECORDS SUMMARY | 2023-03-13 10:49 | XMS ---
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 Connie VISIT COUNT (12 MO.) [address] [place] [address] TOTAL 8 NOTE: Visits indicate total known visits. ED/UCC VISIT TRACKING (12 MO.) 03/13/2023 10:41 [facility] TYPE: Emergency COMPLAINT: - SHORTNESS OF BREATH 03/02/2023 14:43 [facility] TYPE: Emergency COMPLAINT: - SHORTNESS OF BREATH 11/23/2022 14:17 [facility] TYPE: Emergency COMPLAINT: - R LEG POSS BLOODCLOT DIAGNOSES: - Allergy status to other drugs, medicaments and biological substances - Chronic obstructive pulmonary disease, unspecified - Essential (primary) hypertension - skilled nursing (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 of anticoagulants - skilled nursing (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 of oral hypoglycemic drugs - Myalgia, other site - Other termite 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 (current) drug therapy - Pain in right lower leg - Type 2 diabetes mellitus without complications 10/16/2022 23:09 [facility] [place] TYPE: Emergency COMPLAINT: - NOT FEELING HERSELF DIAGNOSES: - Allergy status to other drugs, medicaments and biological substances - Contact with and (suspected) exposure to COVID-19 - Encounter for immunization - Headache, unspecified - Heart failure, unspecified - Hypertensive heart disease with heart failure - skilled nursing (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 of oral hypoglycemic drugs - Other snf (current) drug therapy - Type 2 diabetes mellitus without complications - Urinary tract infection, site not specified 05/20/2022 17:08 [facility] TYPE: Emergency COMPLAINT: - SHORTNESS OF BREATH DIAGNOSES: - Allergy status to other drugs, medicaments and biological substances - Chronic obstructive pulmonary disease with (acute) exacerbation - Contact with and (suspected) exposure to COVID-19 - Essential (primary) hypertension - computer terminal operator (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 of oral hypoglycemic drugs - Other termite 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 (current) drug therapy - Personal history of malignant neoplasm of breast - Shortness of breath - Type 2 diabetes mellitus without complications 04/09/2022 09:37 [facility] TYPE: Emergency COMPLAINT: - DIFFICULTY BREATHING 04/03/2022 23:28 [facility] TYPE: Emergency COMPLAINT: - FEELING SICK AND SWEATING ALOT 04/01/2022 19:[address] [facility] [facility] TYPE: Emergency COMPLAINT: - FEVER DIAGNOSES: - Allergy status to other drugs, medicaments and biological substances - Chronic obstructive pulmonary disease with (acute) exacerbation - Contact with and (suspected) exposure to COVID-19 - Dependence on supplemental oxygen - Essential (primary) hypertension - skilled nursing (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 of oral hypoglycemic drugs - Other snf (current) drug therapy - Respiratory syncytial virus as the cause of diseases classified elsewhere - Shortness of breath - Type 2 diabetes mellitus without complications INPATIENT VISIT TRACKING (12 MO.) 03/02/2023 17:08 [facility] TYPE: Medical Surgical COMPLAINT: - CHF DIAGNOSES: - Acquired absence of bilateral breasts and nipples - Acquired absence of both cervix and uterus - Acquired absence of other organs - Acquired absence of other specified parts of digestive tract - Acute on chronic diastolic (congestive) heart failure - Allergy status to other drugs, medicaments and biological substances - Chronic obstructive pulmonary disease with (acute) exacerbation - Chronic respiratory failure with hypoxia - Dorsalgia, unspecified - Hypertensive heart disease with heart failure - skilled nursing (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 of anticoagulants - computer terminal operator (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 of inhaled steroids - skilled nursing (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 of oral hypoglycemic drugs - Other chronic pain - Other snf (current) drug therapy - Other specified postprocedural states - Personal history of malignant neoplasm of breast - Personal history of nicotine dependence - Personal history of other malignant neoplasm of skin - Personal history of other venous thrombosis and embolism - Personal history of peptic ulcer disease - Restless legs syndrome - Tubal ligation status - Type 2 diabetes mellitus without complications - Unspecified atrial fibrillation - Unspecified glaucoma - Urinary tract infection, site not specified 04/09/2022 09:38 [facility] TYPE: Observation COMPLAINT: - ACUTE ON CHRONIC HYPOXIC RESPIRATORY FAILURE, AFIB DIAGNOSES: - Allergy status to other drugs, medicaments and biological substances - Chronic obstructive pulmonary disease with (acute) exacerbation - Contact with and (suspected) exposure to COVID-19 - Dependence on other enabling machines and devices - Dependence on supplemental oxygen - Dorsalgia, unspecified - Essential (primary) hypertension - skilled nursing (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 of anticoagulants - computer terminal operator (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 of oral hypoglycemic drugs - Other chronic pain - Other termite 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 (current) drug therapy - Respiratory syncytial virus as the cause of diseases classified elsewhere - Restless legs syndrome - Shortness of breath - Type 2 diabetes mellitus without complications - Unspecified atrial fibrillation - Weakness 04/04/2022 09:[address] [facility] [place] TYPE: Medical Surgical COMPLAINT: - RSV ILLNESS COPD DIAGNOSES: - Acquired absence of bilateral breasts and nipples - Acquired absence of bilateral breasts and nipples - Acquired absence of both cervix and uterus - Acquired absence of both cervix and uterus - Acquired absence of other organs - Acquired absence of other organs - Acquired absence of other specified parts of digestive tract - Acquired absence of other specified parts of digestive tract - Allergy status to other drugs, medicaments and biological substances - Allergy status to other drugs, medicaments and biological substances - Chronic obstructive pulmonary disease with (acute) exacerbation - Chronic respiratory failure with hypoxia - Chronic respiratory failure with hypoxia - Contact with and (suspected) exposure to COVID-19 - Contact with and (suspected) exposure to COVID-19 - Do not resuscitate - Do not resuscitate - Essential (primary) hypertension - Essential (primary) hypertension - skilled nursing (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 of anticoagulants - skilled nursing (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 of anticoagulants - skilled nursing (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 of oral hypoglycemic drugs - computer terminal operator (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 of oral hypoglycemic drugs - Low back pain, unspecified - Low back pain, unspecified - Other chronic pain - Other chronic pain - Other termite 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 (current) drug therapy - Other snf (current) drug therapy - Other persistent atrial fibrillation - Other persistent atrial fibrillation - Personal history of malignant neoplasm of breast - Personal history of malignant neoplasm of breast - Personal history of other malignant neoplasm of skin - Personal history of other malignant neoplasm of skin - Respiratory syncytial virus as the cause of diseases classified elsewhere - Respiratory syncytial virus as the cause of diseases classified elsewhere - Restless legs syndrome - Restless legs syndrome - Tubal ligation status - Tubal ligation status - Type 2 diabetes mellitus with hyperglycemia - Type 2 diabetes mellitus with hyperglycemia - Unspecified glaucoma - Unspecified glaucoma [email or web address]
[2023-03-13 11:17] LABS: BASOPHILS 0.6 % (0-2); EOSINOPHILS 1.8 % (0-6); HEMATOCRIT 35.4 % (35.0-50.0); HEMOGLOBIN 11.3 g/dL (12.0-18.0); LYMPHOCYTES 24.1 % (24-44); MCH 27.4 (27-36); MCV 85.7 fl (81-99); MONOCYTES 8.7 % (0-12); NEUTROPHILS 64.8 % (39-80); PLATELET COUNT 265 K/uL (140-440); RBC 4.13 M/ul (4.3-5.7); RDW 15.3 (10.5-15.0)
[2023-03-13 11:39] LABS: ALBUMIN 1.7 g/dL (3.4-5.0); ALBUMIN/GLOBULIN RATIO 0.4 (1.1-2.4); ANION GAP 12.6 (7-21); BILIRUBIN, TOTAL 0.4 ng/dL (0.2-1.0); BUN/CREATININE RATIO 13.72 (6.0-28.6); CALCIUM 8.6 mg/dL (8.5-10.1); CREATININE, SERUM 1.02 mg/dL (0.55-1.02); POTASSIUM 3.6 mmol/L (3.5-5.1)
[2023-03-13] MEDS ORDERED: PREDNISONE20 MG PO (12:24)
[2023-03-13 12:46] VITALS: BP 134/70
== END 2023-03-13 12:48 | disposition home or self-care (01) ==
LOC: ED 10:41
PROVIDERS: Emergency Medicine
DX: J44.1 Chronic obstructive pulmonary disease with (acute) exacerbation (principal); I11.0 Hypertensive heart disease with heart failure; I50.9 Heart failure, unspecified; G25.81 Restless legs syndrome; E11.9 Type 2 diabetes mellitus without complications; Z99.81 Dependence on supplemental oxygen; Z79.84 Long term (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 of oral hypoglycemic drugs; Z79.01 Long term (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 of anticoagulants; Z79.51 Long term (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 of inhaled steroids; Z79.899 Other long term (current) drug therapy; Z88.8 Allergy status to other drugs, medicaments and biological substances
CPT/HCPCS: 36415; 71045; 80053; 83880; 85025; 94640; 99285-25; A9270; J7512

== ENCOUNTER 2023-04-08 19:24 | Emergency (ER) | payer MEDICARE, OTHER ==
[~2023-04-08] VITALS: Ht 160 cm; Wt 107.5 kg
--- OUTSIDE RECORDS SUMMARY | 2023-04-08 19:27 | XMS ---
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 Connie VISIT COUNT (12 MO.) [address] [place] [address] TOTAL 7 NOTE: Visits indicate total known visits. ED/UCC VISIT TRACKING (12 MO.) 04/08/2023 19:25 [facility] TYPE: Emergency COMPLAINT: - CHEST PAIN 03/13/2023 10:41 [facility] TYPE: Emergency COMPLAINT: - SHORTNESS OF BREATH DIAGNOSES: - Allergy status to other drugs, medicaments and biological substances - Chronic obstructive pulmonary disease with (acute) exacerbation - Dependence on supplemental oxygen - Heart failure, unspecified - Hypertensive heart disease with heart failure - exterminator termite (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 of anticoagulants - exterminator termite (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 of inhaled steroids - senior living (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 of oral hypoglycemic drugs - Other termite treater (current) drug therapy - Restless legs syndrome - Shortness of breath - Type 2 diabetes mellitus without complications 03/02/2023 14:43 [facility] [place] TYPE: Emergency COMPLAINT: - SHORTNESS OF BREATH 11/23/2022 14:17 [facility] TYPE: Emergency COMPLAINT: - R LEG POSS BLOODCLOT DIAGNOSES: - Allergy status to other drugs, medicaments and biological substances - Chronic obstructive pulmonary disease, unspecified - Essential (primary) hypertension - exterminator termite (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 of anticoagulants - exterminator termite (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 of oral hypoglycemic drugs - Myalgia, other site - Other penitentiary (current) drug therapy - Pain in right [...] Hypertensive heart disease with heart failure - senior living (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 of oral hypoglycemic drugs - Other penitentiary (current) drug therapy - Type 2 diabetes mellitus without complications - Urinary tract infection, site not specified 05/20/2022 17:08 [facility] TYPE: Emergency COMPLAINT: - SHORTNESS OF BREATH DIAGNOSES: - Allergy status to other drugs, medicaments and biological substances - Chronic obstructive pulmonary disease with (acute) exacerbation - Contact with and (suspected) exposure to COVID-19 - Essential (primary) hypertension - senior living (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 of oral hypoglycemic drugs - Other termite treater (current) drug therapy - Personal history of malignant neoplasm of breast - Shortness of breath - Type 2 diabetes mellitus without complications 04/09/2022 09:37 [facility] TYPE: Emergency COMPLAINT: - DIFFICULTY BREATHING INPATIENT VISIT TRACKING (12 MO.) 03/02/2023 17:08 [...] Hypertensive heart disease with heart failure - senior living (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 of anticoagulants - exterminator termite (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 of inhaled steroids - senior living (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 of oral hypoglycemic drugs - Other chronic pain - Other termite treater (current) drug therapy - Other specified postprocedural [...] tract infection, site not specified 04/09/2022 09:[address] [facility] [place] TYPE: Observation COMPLAINT: - ACUTE ON CHRONIC HYPOXIC RESPIRATORY FAILURE, AFIB DIAGNOSES: - Allergy status to other drugs, medicaments and biological substances - Chronic obstructive pulmonary disease with (acute) exacerbation - Contact with and (suspected) exposure to COVID-19 - Dependence on other enabling machines and devices - Dependence on supplemental oxygen - Dorsalgia, unspecified - Essential (primary) hypertension - senior living (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 of anticoagulants - senior living (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 of oral hypoglycemic drugs - Other chronic pain - Other termite treater (current) drug therapy - Respiratory syncytial virus as the cause of diseases classified elsewhere - Restless legs syndrome - Shortness of breath - Type 2 diabetes mellitus without complications - Unspecified atrial fibrillation - Weakness [email or web address]
[2023-04-08 19:56] LABS: BASOPHILS 0.4 % (0-2); HEMATOCRIT 38.3 % (35.0-50.0); HEMOGLOBIN 12.2 g/dL (12.0-18.0); MCH 27.7 (27-36); MCHC 31.9 g/dl (30-36); RDW 16.1 (10.5-15.0)
[2023-04-08 19:59] LABS: EOSINOPHILS 2.9 % (0-6); LYMPHOCYTES 37.9 % (24-44); MCV 86.9 fl (81-99); MONOCYTES 7.6 % (0-12); NEUTROPHILS 51.2 % (39-80); PLATELET COUNT 261 K/uL (140-440)
[2023-04-08 20:17] LABS: ALBUMIN 3.2 g/dL (3.4-5.0); ALBUMIN/GLOBULIN RATIO 0.86 (1.1-2.4); BILIRUBIN, TOTAL 0.2 ng/dL (0.2-1.0); BUN/CREATININE RATIO 14.7 (6.0-28.6); CREATININE, SERUM 1.02 mg/dL (0.55-1.02); MAGNESIUM 1.8 mg/dL (1.8-2.4); PROTEIN, TOTAL 6.9 g/dL (6.4-8.2)
[2023-04-08 22:19] VITALS: BP 163/73
--- NOTE | 2023-04-09 13:02 | EKG ---
[facility] [address] [place] [address] [address] Atrial fibrillation N[address]pecific ST abnormality Abnormal ECG When compared with ECG of 03-MAR-2023 16:13, Increased artifact, but otherwise no significant change was found Confirmed by Amita Ellis MD () on 04/09/2023 1:02:14 PM Electronically Signed By: AMITA ELLIS MD 04/09/23 1302 PATIENT NAME: DAVID GUTIERREZ Electrocardiogram DATE OF : 42 PHYSICIAN: AMITA ELLIS MD REPORT #: [id number] REPORT IS CONFIDENTIAL AND NOT TO BE RELEASED WITHOUT AUTHORIZATION
== END 2023-04-08 22:10 | disposition home or self-care (01) ==
LOC: ED 19:24
PROVIDERS: Emergency Medicine
DX: R07.89 Other chest pain (principal); I10 Essential (primary) hypertension; J44.9 Chronic obstructive pulmonary disease, unspecified; G89.29 Other chronic pain; E11.9 Type 2 diabetes mellitus without complications; H40.9 Unspecified glaucoma; Z88.8 Allergy status to other drugs, medicaments and biological substances; Z79.84 Long term (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 of oral hypoglycemic drugs; Z79.899 Other long term (current) drug therapy; Z79.01 Long term (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 of anticoagulants; Z79.51 Long term (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 of inhaled steroids
CPT/HCPCS: 36415; 71045; 80053; 83735; 84484; 85025; 93005; 93010; 99285-25

== ENCOUNTER 2023-04-18 11:40 | Emergency (ER) | payer MEDICARE, OTHER ==
[~2023-04-18] VITALS: Ht 160 cm; Wt 105.1 kg
--- OUTSIDE RECORDS SUMMARY | 2023-04-18 11:42 | XMS ---
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 ERafal VISIT COUNT (12 MO.) [address] [place] [address] TOTAL 7 NOTE: Visits indicate total known visits. ED/UCC VISIT TRACKING (12 MO.) 04/18/2023 11:[address] [facility] [place] TYPE: Emergency COMPLAINT: - HEADACHE, DIZZY 04/08/2023 19:[address] [facility] [place] TYPE: Emergency COMPLAINT: - CHEST PAIN DIAGNOSES: - Allergy status to other drugs, medicaments and biological substances - Chronic obstructive pulmonary disease, unspecified - Essential (primary) hypertension - technician terminal and repeater (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 of anticoagulants - technician terminal and repeater (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 of inhaled steroids - technician terminal and repeater (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 of oral hypoglycemic drugs - Other chest pain - Other chronic pain - Other termite 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 (current) drug therapy - Type 2 diabetes mellitus without complications - Unspecified glaucoma 03/13/2023 10:41 [facility] [place] TYPE: Emergency COMPLAINT: - SHORTNESS OF BREATH DIAGNOSES: - Allergy status to other drugs, medicaments and biological substances - Chronic obstructive pulmonary disease with (acute) exacerbation - Dependence on supplemental oxygen - Heart failure, unspecified - Hypertensive heart disease with heart failure - technician terminal and repeater (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 of anticoagulants - assisted (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 of inhaled steroids - technician terminal and repeater (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 of oral hypoglycemic drugs - Other jail (current) drug therapy - Restless legs syndrome [...] disease, unspecified - Essential (primary) hypertension - assisted (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 of anticoagulants - assisted (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 of oral hypoglycemic drugs - Myalgia, other site - Other jail (current) drug therapy - Pain in right [...] Hypertensive heart disease with heart failure - technician terminal and repeater (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 of oral hypoglycemic drugs - Other jail (current) drug therapy - Type 2 diabetes mellitus without complications - Urinary tract infection, site not specified 05/20/2022 17:08 [facility] [place] TYPE: Emergency COMPLAINT: - SHORTNESS OF BREATH DIAGNOSES: - Allergy status to other drugs, medicaments and biological substances - Chronic obstructive pulmonary disease with (acute) exacerbation - Contact with and (suspected) exposure to COVID-19 - Essential (primary) hypertension - technician terminal and repeater (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 of oral hypoglycemic drugs - Other jail (current) drug therapy - Personal history of [...] Hypertensive heart disease with heart failure - assisted (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 of anticoagulants - assisted (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 of inhaled steroids - assisted (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 of oral hypoglycemic drugs - Other chronic pain - Other termite 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 (current) drug therapy - Other specified postprocedural [...] - Urinary tract infection, site not specified [email or web address]
[2023-04-18] MEDS ORDERED: IBLOOD GLUCOSE TEST STRIP 1 EA TEST XX ONE (12:15)
[2023-04-18] MEDS ORDERED: ALBUTEROL/IPRATROPIUM 3 ML NEB INH ONE (12:30)
[2023-04-18 12:36] LABS: BASOPHILS 0.6 % (0-2); EOSINOPHILS 2.3 % (0-6); HEMATOCRIT 36.8 % (35.0-50.0); HEMOGLOBIN 11.9 g/dL (12.0-18.0); LYMPHOCYTES 31.1 % (24-44); MCH 27.9 (27-36); MCHC 32.4 g/dl (30-36); MCV 86.1 fl (81-99); MONOCYTES 9.4 % (0-12); NEUTROPHILS 56.6 % (39-80); PLATELET COUNT 264 K/uL (140-440); RBC 4.27 M/ul (4.3-5.7); RDW 16.1 (10.5-15.0)
[2023-04-18 12:56] LABS: ALBUMIN 3.1 g/dL (3.4-5.0); ALBUMIN/GLOBULIN RATIO 0.86 (1.1-2.4); ANION GAP 11.7 (7-21); BILIRUBIN, TOTAL 0.4 ng/dL (0.2-1.0); BUN/CREATININE RATIO 17.02 (6.0-28.6); CALCIUM 8.6 mg/dL (8.5-10.1); CREATININE, SERUM 0.94 mg/dL (0.55-1.02); MAGNESIUM 1.5 mg/dL (1.8-2.4); POTASSIUM 3.7 mmol/L (3.5-5.1); PROTEIN, TOTAL 6.7 g/dL (6.4-8.2)
[2023-04-18 13:05] LABS: INFLUENZA B NAA NEGATIVE (NEGATIVE); RESPIRATORY SYNCYTIAL VIR NAA NEGATIVE (NEGATIVE)
[2023-04-18 13:21] LABS: BILIRUBIN, URINE NEGATIVE (negative); BLOOD/HGB, URINE NEGATIVE (Negative); KETONE, URINE NEGATIVE (Negative); LEUK ESTERASE, URINE NEGATIVE (negative); NITRITE, URINE POSITIVE (negative); PH, URINE 6.5 (5-7)
[2023-04-18 13:29] LABS: BACTERIA, URINE 1+ /hpf (negative); CASTS, URINE NONE SEEN \\lpf; CRYSTALS, URINE NONE SEEN (0-1+); EPITHELIAL CELLS, URINE SQUAMOUS 2+ /lpf (0-1+); RED BLOOD CELLS, URINE 0-1 /hpf (0-5); WHITE BLOOD CELLS, URINE 0-1 /HPF (0-5)
[2023-04-18 13:30] LABS: COLLECTION TYPE, URINE CLEAN CATCH; REFLEX CULTURE, URINE No (No)
[2023-04-18] MEDS ORDERED: ONDANSETRON ODT8 MG PO (14:00)
[2023-04-18] MEDS ORDERED: ondansetron HCL 4 MG/2 ML VIAL IV ONE (14:00)
[2023-04-18] MEDS ORDERED: methylPREDNISolone SOD SUCC 125 MG/2 ML VIAL IV ONE (14:00)
[2023-04-18 14:58] VITALS: BP 152/78
--- NOTE | 2023-04-18 23:32 | EKG ---
[facility] [address] [facility] [place], [place] [address] Signed Atrial fibrillation Confirmed by Deny Nath M.D. ([id number]) on 04/18/2023 11:31:57 PM Electronically Signed By: DENY NATH MD 04/18/23 2332 PATIENT NAME: DAVID GUTIERREZ Electrocardiogram DATE OF : 42 PHYSICIAN: DENY NATH MD REPORT #: [id number] REPORT IS CONFIDENTIAL AND NOT TO BE RELEASED WITHOUT AUTHORIZATION
== END 2023-04-18 14:59 | disposition home or self-care (01) ==
LOC: ED 11:40
PROVIDERS: Emergency Medicine
DX: U07.1 COVID-19 (principal); J44.1 Chronic obstructive pulmonary disease with (acute) exacerbation; I10 Essential (primary) hypertension; G89.29 Other chronic pain; E11.9 Type 2 diabetes mellitus without complications; H40.9 Unspecified glaucoma; Z88.8 Allergy status to other drugs, medicaments and biological substances; Z79.84 Long term (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 of oral hypoglycemic drugs; Z79.899 Other long term (current) drug therapy; Z79.01 Long term (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 of anticoagulants; Z79.51 Long term (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 of inhaled steroids
CPT/HCPCS: 36415; 71045; 80053; 81001; 83735; 84484; 85025; 87502; 93005; 93010; J2405; J2930; U0002

== ENCOUNTER 2023-12-11 23:14 | Emergency (ER) | payer MEDICARE, OTHER ==
[~2023-12-11] VITALS: Ht 160 cm; Wt 99.1 kg
[~2023-12-11 23:14] MED LIST changes: +AZITHROMYCIN250 MG PO; +CEFUROXIME250 MG PO; +CIPROFLOXACIN500 MG PO; +METRONIDAZOLE250 MG PO; -MIRAPEX1 MG PO; +ONDANSETRON ODT8 MG PO; +PRAMIPEXOLE DIHY1 MG PO; +SUCRALFATE1 GM PO; +VENTOLIN HFA18 GM
--- OUTSIDE RECORDS SUMMARY | 2023-12-11 23:21 | XMS ---
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 E.Elsy. VISIT COUNT (12 MO.) 8 [facility] [address] [facility] TOTAL 10 NOTE: Visits indicate total known visits. ED/UCC VISIT TRACKING (12 MO.) 12/11/2023 23:15 [facility] [place] TYPE: Emergency COMPLAINT: - DIFFICULT BREATHING [facility]23 [facility] Emergency DIAGNOSES: - Encounter for general adult medical examination without abnormal findings - Hip Pain - poss broken hip sent by primary 07/03/2023 16:38 [facility] [place] TYPE: Emergency DIAGNOSES: - Chronic obstructive pulmonary disease, unspecified - Heart failure, unspecified - shortness of breath 06/29/2023 15:35 [facility] [place] TYPE: Emergency COMPLAINT: - DIFFICULTY BREATHING DIAGNOSES: - Allergy status to other drugs, medicaments and biological substances - Chronic obstructive pulmonary disease, unspecified - Contusion of right hand, initial encounter - Hypertensive heart disease with heart failure - bed bug exterminator (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 of anticoagulants - bed bug exterminator (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 of inhaled steroids - bed bug exterminator (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 of oral hypoglycemic drugs - Other chronic pain - Other exterminator (current) drug therapy - Pleural effusion, not elsewhere classified - Pneumonia, unspecified organism - Restless legs syndrome - Right heart failure, unspecified - Shortness of breath - Type 2 diabetes mellitus without complications - Unspecified abdominal pain - Unspecified fall, initial encounter - Unspecified glaucoma 05/21/2023 19:56 [facility] [place] TYPE: Emergency COMPLAINT: - DIFFICULTY BREATHING DIAGNOSES: - Allergy status to other drugs, medicaments and biological substances - Chronic obstructive pulmonary disease, unspecified - Gastritis, unspecified, without bleeding - Heart failure, unspecified - Hypertensive heart disease with heart failure - bed bug exterminator (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 of anticoagulants - bed bug exterminator (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 of inhaled steroids - bed bug exterminator (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 of oral hypoglycemic drugs - Other chronic pain - Other exterminator (current) drug therapy - Pleural effusion, not elsewhere classified - Type 2 diabetes mellitus without complications - Unspecified abdominal pain - Unspecified atrial fibrillation - Unspecified glaucoma 05/17/2023 15:01 [facility] [place] TYPE: Emergency COMPLAINT: - L SIDE CHEST/ABD PAIN 04/18/2023 11:41 [facility] [place] TYPE: Emergency COMPLAINT: - HEADACHE, DIZZY DIAGNOSES: - Allergy status to other drugs, medicaments and biological substances - Chronic obstructive pulmonary disease with (acute) exacerbation - COVID-19 - Dizziness and giddiness - Essential (primary) hypertension - bed bug exterminator (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 of anticoagulants - residential (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 of inhaled steroids - bed bug exterminator (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 of oral hypoglycemic drugs - Other chronic pain - Other snf (current) drug therapy - Type 2 diabetes mellitus without complications - Unspecified glaucoma 04/08/2023 19:25 [facility] [place] TYPE: Emergency COMPLAINT: - CHEST PAIN DIAGNOSES: - Allergy status to other drugs, medicaments and biological substances - Chronic obstructive pulmonary disease, unspecified - Essential (primary) hypertension - residential (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 of anticoagulants - bed bug exterminator (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 of inhaled steroids - bed bug exterminator (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 of oral hypoglycemic drugs - Other chest pain - Other chronic pain - Other snf [...] Hypertensive heart disease with heart failure - residential (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 of anticoagulants - bed bug exterminator (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 of inhaled steroids - bed bug exterminator (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 of oral hypoglycemic drugs - Other snf (current) drug therapy - Restless legs syndrome - Shortness of breath - Type 2 diabetes mellitus without complications 03/02/2023 14:43 [facility] [place] TYPE: Emergency COMPLAINT: - SHORTNESS OF BREATH INPATIENT VISIT TRACKING (12 MO.) 05/17/2023 21:[address] [facility] [place] TYPE: Medical Surgical COMPLAINT: - PORTAL VEIN PNEUMATOSIS ABD PAIN DIAGNOSES: - Acquired absence of bilateral breasts [...] other drugs, medicaments and biological substances - Bariatric surgery status - Bariatric surgery status - Body mass index [BMI] 40.0-44.9, adult - Body mass index [BMI] 40.0-44.9, adult - Chronic atrial fibrillation, unspecified - Chronic atrial fibrillation, unspecified - Chronic kidney disease, unspecified - Chronic kidney disease, unspecified - Chronic obstructive pulmonary disease with (acute) lower respiratory infection - Chronic obstructive pulmonary disease with (acute) lower respiratory infection - Dependence on supplemental oxygen - Dependence on supplemental oxygen - Do not resuscitate - Do not resuscitate - Dorsalgia, unspecified - Dorsalgia, unspecified - Hypertensive heart and chronic kidney disease with heart failure and stage 1 through stage 4 chronic kidney disease, or unspecified chronic kidney disease - Hypertensive heart and chronic kidney disease with heart failure and stage 1 through stage 4 chronic kidney disease, or unspecified chronic kidney disease - residential (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 of anticoagulants - residential (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 of anticoagulants - residential (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 of oral hypoglycemic drugs - bed bug exterminator (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 of oral hypoglycemic drugs - Obesity, unspecified - Obesity, unspecified - Other chronic pain - Other chronic pain - Other exterminator (current) drug therapy - Other snf (current) drug therapy - Other specified diseases of intestine - Other specified postprocedural states - Other specified postprocedural states - Personal history of malignant melanoma of skin - Personal history of malignant melanoma of skin - Personal history of malignant neoplasm of breast - Personal history of malignant neoplasm of breast - Personal history of other venous thrombosis and embolism - Personal history of other venous thrombosis and embolism - Personal history of peptic ulcer disease - Personal history of peptic ulcer disease - Restless legs syndrome - Restless legs syndrome - Right heart failure, unspecified - Right heart failure, unspecified - Tubal ligation status - Tubal ligation status - Unspecified chronic gastritis without bleeding - Unspecified chronic gastritis without bleeding - Unspecified glaucoma - Unspecified glaucoma 03/02/2023 17:[address] [facility] [place] TYPE: Medical Surgical COMPLAINT: - CHF [...] Hypertensive heart disease with heart failure - residential (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 of anticoagulants - bed bug exterminator (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 of inhaled steroids - residential (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 of oral hypoglycemic drugs - [...] - Urinary tract infection, site not specified [email or web address]
[2023-12-11] MEDS ORDERED: NITROGLYCERIN PACKET TOP ONE (23:30)
[2023-12-11] MEDS ORDERED: ASPIRIN 325 MG TAB PO ONE (23:30)
[2023-12-11 23:49] LABS: RDW 16.3 (10.5-15.0)
[2023-12-11 23:52] LABS: BASOPHILS 0.7 % (0-2); EOSINOPHILS 2.6 % (0-6); HEMATOCRIT 45.9 % (35.0-50.0); HEMOGLOBIN 15.2 g/dL (12.0-18.0); LYMPHOCYTES 25.4 % (24-44); MCHC 33.2 g/dl (30-36); MCV 90.4 fl (81-99); MONOCYTES 6.9 % (0-12); NEUTROPHILS 64.4 % (39-80); PLATELET COUNT 209 K/uL (140-440); RBC 5.08 M/ul (4.3-5.7)
[2023-12-12 00:02] LABS: PARTIAL THROMBOPLASTIN TIME 27.7 Sec (22.9-41.3)
[2023-12-12 00:05] LABS: INR 1.14 (0.80-1.30); PROTIME 13.9 Sec (11.2-14.2)
[2023-12-12] MEDS ORDERED: FUROSEMIDE 100 MG/10 ML VIAL IV ONE (00:15)
[2023-12-12 00:20] LABS: ALBUMIN 3.4 g/dL (3.4-5.0); ALBUMIN/GLOBULIN RATIO 0.92 (1.1-2.4); ANION GAP 12.2 (7-21); BILIRUBIN, TOTAL 0.3 ng/dL (0.2-1.0); BUN/CREATININE RATIO 14.15 (6.0-28.6); CALCIUM 9.3 mg/dL (8.5-10.1); CREATININE, SERUM 1.06 mg/dL (0.55-1.02); MAGNESIUM 2.2 mg/dL (1.8-2.4); POTASSIUM 4.2 mmol/L (3.5-5.1); PROTEIN, TOTAL 7.1 g/dL (6.4-8.2)
[2023-12-12] MEDS ORDERED: LASIX40 MG PO (01:23)
[2023-12-12] MEDS ORDERED: LOSARTAN POTASS50 MG PO (01:30)
[2023-12-12 01:40] VITALS: BP 175/102
--- NOTE | 2023-12-12 08:09 | EKG ---
[facility] [address] [facility] [place], [place] [address] Signed Atrial fibrillation Abnormal ECG When compared with ECG of 29-JUN-2023 15:58, No significant change was found Confirmed by Gavino Hoyt MD ([id number]) on 12/12/2023 8:09:04 AM Electronically Signed By: GAVINO HOYT MD 12/12/23808 PATIENT NAME: DAVID GUTIERREZ Electrocardiogram DATE OF : 42 PHYSICIAN: GAVINO HOYT MD REPORT #: [id number] REPORT IS CONFIDENTIAL AND NOT TO BE RELEASED WITHOUT AUTHORIZATION
== END 2023-12-12 01:40 | disposition home or self-care (01) ==
LOC: ED 23:14
PROVIDERS: Family Medicine
DX: I11.0 Hypertensive heart disease with heart failure (principal); I50.813 Acute on chronic right heart failure; I48.91 Unspecified atrial fibrillation; J44.9 Chronic obstructive pulmonary disease, unspecified; E11.39 Type 2 diabetes mellitus with other diabetic ophthalmic complication; H40.9 Unspecified glaucoma; H42 Glaucoma in diseases classified elsewhere; Z88.8 Allergy status to other drugs, medicaments and biological substances; Z79.84 Long term (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 of oral hypoglycemic drugs; Z79.01 Long term (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 of anticoagulants; Z79.899 Other long term (current) drug therapy
CPT/HCPCS: 36415; 51702; 71045; 80053; 83735; 83880; 84484; 85025; 85610; 85730; 93005; 93010; 99285-25; J1940

== ENCOUNTER 2024-03-10 02:21 | Emergency (ER) | payer MEDICARE, OTHER ==
[~2024-03-10] VITALS: Ht 160 cm; Wt 97.1 kg
--- OUTSIDE RECORDS SUMMARY | 2024-03-10 02:25 | XMS ---
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 Connie VISIT COUNT (12 MO.) 8 JIA David [address] [place] (Elena Parker) TOTAL 10 NOTE: Visits indicate total known visits. ED/UCC VISIT TRACKING (12 MO.) 03/10/2024 02:22 [facility] [place] TYPE: Emergency COMPLAINT: - CHEST PAIN 12/11/2023 23:15 [facility] [place] TYPE: Emergency COMPLAINT: - DIFFICULT BREATHING DIAGNOSES: - Acute on chronic right heart failure - Allergy status to other drugs, medicaments and biological substances - Chronic obstructive pulmonary disease, unspecified - Glaucoma in diseases classified elsewhere - Hypertensive heart disease with heart failure - [facility] (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 of anticoagulants - [facility] (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 of oral hypoglycemic drugs - Other chest pain - Other prison (current) drug therapy - Right heart failure, unspecified - Type 2 diabetes mellitus with other diabetic ophthalmic complication - Unspecified atrial fibrillation - Unspecified glaucoma [facility]01[facility]2023 [facility] TYPE: Emergency DIAGNOSES: - Encounter for general adult medical examination without abnormal findings - Hip Pain - poss broken hip sent by primary 07/03/2023 16:38 [facility] [place] TYPE: Emergency DIAGNOSES: - Chronic obstructive pulmonary disease, unspecified - Heart failure, unspecified - shortness of breath 06/29/2023 15:35 [facility] [place] TYPE: Emergency COMPLAINT: - DIFFICULTY BREATHING DIAGNOSES: - Allergy status to other drugs, medicaments and biological substances - Chronic obstructive pulmonary disease, unspecified - Contusion of right hand, initial encounter - Hypertensive heart disease with heart failure - [facility] (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 of anticoagulants - termite control servicer (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 of inhaled steroids - termite control servicer (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 of oral hypoglycemic drugs - Other chronic pain - Other prison (current) drug therapy - Pleural effusion, not [...] Hypertensive heart disease with heart failure - [facility] (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 of anticoagulants - [facility] (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 of inhaled steroids - [facility] (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 of oral hypoglycemic drugs - Other chronic pain - Other intermission coordinator (current) drug therapy - Pleural effusion, not [...] and giddiness - Essential (primary) hypertension - [facility] (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 of anticoagulants - [facility] (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 of inhaled steroids - termite control servicer (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 of oral hypoglycemic drugs - Other chronic pain - Other prison (current) drug therapy - Type 2 diabetes mellitus without complications - Unspecified glaucoma 04/08/2023 19:25 [facility] [place] TYPE: Emergency COMPLAINT: - CHEST PAIN DIAGNOSES: - Allergy status to other drugs, medicaments and biological substances - Chronic obstructive pulmonary disease, unspecified - Essential (primary) hypertension - termite control servicer (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 of anticoagulants - termite control servicer (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 of inhaled steroids - termite control servicer (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 of oral hypoglycemic drugs - Other chest pain - Other chronic pain - Other prison (current) drug therapy - [...] Hypertensive heart disease with heart failure - [facility] (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 of anticoagulants - [facility] (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 of inhaled steroids - [facility] (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 of oral hypoglycemic drugs - Other prison (current) drug therapy - Restless legs syndrome - Shortness of breath - Type 2 diabetes mellitus without complications INPATIENT VISIT TRACKING (12 MO.) 05/17/2023 21:39 [...] disease, or unspecified chronic kidney disease - [facility] (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 of anticoagulants - termite control servicer (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 of anticoagulants - termite control servicer (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 of oral hypoglycemic drugs - [facility] (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 of oral hypoglycemic drugs - Obesity, unspecified - Obesity, unspecified - Other chronic pain - Other chronic pain - Other prison (current) drug therapy - Other intermission coordinator (current) drug therapy - Other specified diseases [...] bleeding - Unspecified glaucoma - Unspecified glaucoma [email or web address]
[2024-03-10] MEDS ORDERED: ASPIRIN 81 MG CHEW PO ONE (02:30)
[2024-03-10] MEDS ORDERED: NITROGLYCERIN 0.4 MG SUBL SL PRN (02:30)
[2024-03-10] MEDS ORDERED: JARDIANCE25 MG (02:37)
[2024-03-10] MEDS ORDERED: IRON325 M1 (02:38)
[2024-03-10] MEDS ORDERED: PRAMIPEXOLE DI0.5 MG (02:38)
[2024-03-10] MEDS ORDERED: POTASSIUM CHLO20 ME1 (02:38)
[2024-03-10] MEDS ORDERED: OXYBUTYNIN CHLO10 MG (02:38)
[2024-03-10 02:39] LABS: BASOPHILS 1.3 % (0-2); HEMATOCRIT 47.4 % (35.0-50.0); HEMOGLOBIN 15.5 g/dL (12.0-18.0); LYMPHOCYTES 31.8 % (24-44); MCH 31.2 (27-36); MCHC 32.7 g/dl (30-36); MCV 95.5 fl (81-99); MONOCYTES 5.7 % (0-12); NEUTROPHILS 58.2 % (39-80); PLATELET COUNT 211 K/uL (140-440); RBC 4.97 M/ul (4.3-5.7); RDW 14.8 (10.5-15.0)
[2024-03-10] MEDS ORDERED: FAMOTIDINE 20 MG/ 2 ML VIAL IV ONE (02:45)
[2024-03-10 02:56] LABS: ALBUMIN 3.6 g/dL (3.4-5.0); ALBUMIN/GLOBULIN RATIO 0.95 (1.1-2.4); ANION GAP 13.5 (7-21); BILIRUBIN, TOTAL 0.5 ng/dL (0.2-1.0); BUN/CREATININE RATIO 14.95 (6.0-28.6); CALCIUM 9.2 mg/dL (8.5-10.1); CREATININE, SERUM 1.07 mg/dL (0.55-1.02); POTASSIUM 4.5 mmol/L (3.5-5.1); PROTEIN, TOTAL 7.4 g/dL (6.4-8.2)
[2024-03-10] MEDS ORDERED: FUROSEMIDE 40 MG/4 ML VIAL IV ONE (03:15)
[2024-03-10 04:16] LABS: BILIRUBIN, URINE NEGATIVE (negative); BLOOD/HGB, URINE NEGATIVE (Negative); KETONE, URINE NEGATIVE (Negative); LEUK ESTERASE, URINE TRACE (negative); NITRITE, URINE NEGATIVE (negative)
[2024-03-10 04:24] LABS: BACTERIA, URINE 3+ /hpf (negative); CASTS, URINE NONE SEEN \\lpf; COLLECTION TYPE, URINE CLEAN CATCH; CRYSTALS, URINE NONE SEEN (0-1+); EPITHELIAL CELLS, URINE SQUAMOUS 3+ /lpf (0-1+); RED BLOOD CELLS, URINE 0-1 /hpf (0-5); REFLEX CULTURE, URINE No (No); WHITE BLOOD CELLS, URINE 21-40 /HPF (0-5)
[2024-03-10 05:00] VITALS: BP 153/85
--- NOTE | 2024-03-12 14:45 | EKG ---
[facility] [address] [facility] [place], [place] [address] Signed Atrial fibrillation Nonspecific ST abnormality Abnormal ECG When compared with ECG of 11-DEC-2023 23:23, No significant change was found Confirmed by Gavino Hoyt MD ([id number]) on 03/12/2024 2:45:03 PM Electronically Signed By: GAVINO HOYT MD 03/12/24 1445 PATIENT NAME: DAVID GUTIERREZ Electrocardiogram DATE OF : 42 PHYSICIAN: GAVINO HOYT MD REPORT #: [id number] REPORT IS CONFIDENTIAL AND NOT TO BE RELEASED WITHOUT AUTHORIZATION
== END 2024-03-10 05:10 | disposition home or self-care (01) ==
LOC: ED 02:21
PROVIDERS: Internal Medicine
DX: I11.0 Hypertensive heart disease with heart failure (principal); I50.9 Heart failure, unspecified; I48.91 Unspecified atrial fibrillation; J44.9 Chronic obstructive pulmonary disease, unspecified; E11.9 Type 2 diabetes mellitus without complications; Z86.718 Personal history of other venous thrombosis and embolism; Z88.8 Allergy status to other drugs, medicaments and biological substances; Z79.01 Long term (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 of anticoagulants; Z79.84 Long term (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 of oral hypoglycemic drugs; Z79.899 Other long term (current) drug therapy
CPT/HCPCS: 36415; 71045; 80053; 81001; 83690; 83735; 83880; 84484; 85025; 93005; 93010; 96374; 96375; 99285-25; A9270; J1940

== ENCOUNTER 2024-05-22 20:42 | Emergency (ER) | payer MEDICARE, OTHER ==
[~2024-05-22] VITALS: Ht 160 cm; Wt 102.7 kg
[~2024-05-22 20:42] MED LIST changes: +IRON325 M1; +JARDIANCE25 MG; +OXYBUTYNIN CHLO10 MG; +POTASSIUM CHLO20 ME1; +PRAMIPEXOLE DI0.5 MG
--- OUTSIDE RECORDS SUMMARY | 2024-05-22 20:49 | XMS ---
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 Connie VISIT COUNT (12 MO.) 4 JIA David [address] [place] (Elena Parker) TOTAL 7 NOTE: Visits indicate total known visits. ED/UCC VISIT TRACKING (12 MO.) 05/22/2024 20:42 [facility] [place] TYPE: Emergency COMPLAINT: - SOB 04/11/2024 15:56 [facility] [place] TYPE: Emergency DIAGNOSES: - Contusion of right knee, initial encounter - Strain of muscle, fascia and tendon at neck level, initial encounter - Unspecified injury of head, initial encounter - TRAUMA 03/10/2024 02:22 [facility] [place] TYPE: Emergency COMPLAINT: - CHEST PAIN DIAGNOSES: - Allergy status to other drugs, medicaments and biological substances - Chronic obstructive pulmonary disease, unspecified - Heart failure, unspecified - Hypertensive heart disease with heart failure - ocean transportation intermediary (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 of anticoagulants - ocean transportation intermediary (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 of oral hypoglycemic drugs - Other chest pain - Other long-term (current) drug therapy - Personal history of other venous thrombosis and embolism - Type 2 diabetes mellitus without complications - Unspecified atrial fibrillation 12/11/2023 23:15 [facility] [place] TYPE: Emergency COMPLAINT: - DIFFICULT BREATHING DIAGNOSES: - Acute on chronic right heart failure - Allergy status to other drugs, medicaments and biological substances - Chronic obstructive pulmonary disease, unspecified - Glaucoma in diseases classified elsewhere - Hypertensive heart disease with heart failure - ocean transportation intermediary (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 of anticoagulants - ocean transportation intermediary (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 of oral hypoglycemic drugs - Other chest pain - Other oil heaterman (current) drug therapy - Right heart failure, unspecified - Type 2 diabetes mellitus with other diabetic ophthalmic complication - Unspecified atrial fibrillation - Unspecified glaucoma [facility]2023 [facility]: Emergency DIAGNOSES: - Encounter for general adult medical examination without abnormal findings - Hip Pain - poss broken hip sent by primary 07/03/2023 16:38 [facility] [place] TYPE: Emergency DIAGNOSES: - Chronic obstructive pulmonary disease, unspecified - Heart failure, unspecified - shortness of breath 06/29/2023 15:35 [facility] [place] TYPE: Emergency COMPLAINT: - DIFFICULTY BREATHING DIAGNOSES: - Allergy status to other drugs, medicaments and biological substances - Chronic obstructive pulmonary disease, unspecified - Contusion of right hand, initial encounter - Hypertensive heart disease with heart failure - ocean transportation intermediary (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 of anticoagulants - care home (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 of inhaled steroids - ocean transportation intermediary (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 of oral hypoglycemic drugs - Other chronic pain - Other long-term (current) drug therapy - Pleural effusion, not elsewhere classified - Pneumonia, unspecified organism - Restless legs syndrome - Right heart failure, unspecified - Shortness of breath - Type 2 diabetes mellitus without complications - Unspecified abdominal pain - Unspecified fall, initial encounter - Unspecified glaucoma INPATIENT VISIT TRACKING (12 MO.) No inpatient visits to display in this time frame [email or web address]
[2024-05-22] MEDS ORDERED: LORazepam 2 MG/ML VIAL IV ONE (21:00)
[2024-05-22] MEDS ORDERED: ALBUTEROL/IPRATROPIUM 3 ML NEB INH ONE (21:00)
[2024-05-22 21:17] LABS: BASOPHILS 0.7 % (0-2); EOSINOPHILS 3.1 % (0-6); HEMATOCRIT 42.8 % (35.0-50.0); HEMOGLOBIN 14.5 g/dL (12.0-18.0); LYMPHOCYTES 20.3 % (24-44); MCH 31.8 (27-36); MCHC 33.8 g/dl (30-36); MCV 93.8 fl (81-99); MONOCYTES 9.6 % (0-12); NEUTROPHILS 66.3 % (39-80); PLATELET COUNT 192 K/uL (140-440); RBC 4.56 M/ul (4.3-5.7)
[2024-05-22 21:39] LABS: ALBUMIN 3.4 g/dL (3.4-5.0); ALBUMIN/GLOBULIN RATIO 1.03 (1.1-2.4); ANION GAP 6.5 (7-21); BILIRUBIN, TOTAL 0.5 mg/dL (0.2-1.0); BUN/CREATININE RATIO 13.97 (6.0-28.6); CALCIUM 9.4 mg/dL (8.5-10.1); CREATININE, SERUM 0.93 mg/dL (0.55-1.02); POTASSIUM 4.5 mmol/L (3.5-5.1); PROTEIN, TOTAL 6.7 g/dL (6.4-8.2)
[2024-05-22] MEDS ORDERED: LORazepam 1 MG HOME.PACK PO ONE (22:15)
[2024-05-22] MEDS ORDERED: FUROSEMIDE 40 MG/4 ML VIAL IV ONE (22:15)
[2024-05-22] MEDS ORDERED: PRAMIPEXOLE DIHYDROCHLORIDE 1 MG TAB PO ONE (23:30)
[2024-05-23] MEDS ORDERED: ACETAMINOPHEN 500 MG TAB PO ONE (06:00)
[2024-05-23] MEDS ORDERED: PRAMIPEXOLE DIHYDROCHLORIDE 0.5 MG TAB PO ONE (06:00)
[2024-05-23] MEDS ORDERED: HYDROCODONE/ACETA 5/325 TAB PO ONE (07:15)
[2024-05-23] MEDS ORDERED: CALCIUM CARBONATE 500 MG CHEW PO ONE (07:15)
[2024-05-23 08:38] VITALS: BP 147/69
--- NOTE | 2024-05-23 12:43 | EKG ---
[facility] [address] [facility] [place], [place] [address] Signed Sinus rhythm with sinus arrhythmia with occasional premature ventricular complexes Nonspecific ST and T wave abnormality Abnormal ECG When compared with ECG of 10-MAR-2024 02:26, Sinus rhythm has replaced Atrial fibrillation ST elevation has replaced ST depression in Lateral leads T wave inversion now evident in Lateral leads Confirmed by Ronen Qiu DO ([id number]) on 05/23/2024 12:43:43 PM Electronically Signed By: RONEN QIU DO 05/23/24 1243 PATIENT NAME: DAVID GUTIERREZ Electrocardiogram DATE OF : 42 PHYSICIAN: RONEN QIU DO REPORT #: [id number] REPORT IS CONFIDENTIAL AND NOT TO BE RELEASED WITHOUT AUTHORIZATION
== END 2024-05-23 08:37 | disposition home or self-care (01) ==
LOC: ED 20:42
PROVIDERS: Family Medicine
DX: I11.0 Hypertensive heart disease with heart failure (principal); I50.9 Heart failure, unspecified; J44.9 Chronic obstructive pulmonary disease, unspecified; E11.9 Type 2 diabetes mellitus without complications; I48.91 Unspecified atrial fibrillation; G47.30 Sleep apnea, unspecified; Z99.81 Dependence on supplemental oxygen; Z86.718 Personal history of other venous thrombosis and embolism; Z88.8 Allergy status to other drugs, medicaments and biological substances; Z79.01 Long term (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 of anticoagulants; Z79.84 Long term (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 of oral hypoglycemic drugs; Z79.899 Other long term (current) drug therapy
CPT/HCPCS: 36415; 71045; 80053; 83880; 84484; 85025; 93005; 93010; 94640; 96374; 96375; 99285-25; A9270; J1940; J2060

== ENCOUNTER 2024-05-26 05:03 | Emergency (ER) | payer MEDICARE, OTHER ==
[~2024-05-26] VITALS: Ht 160 cm; Wt 101.1 kg
--- OUTSIDE RECORDS SUMMARY | 2024-05-26 05:10 | XMS ---
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 ERafal VISIT COUNT (12 MO.) 5 JIA David [address] [place] (Elena Parker) TOTAL 8 NOTE: Visits indicate total known visits. ED/UCC VISIT TRACKING (12 MO.) 05/26/2024 05:04 [facility] [place] TYPE: Emergency COMPLAINT: - BACK PAIN 05/22/2024 20:42 [facility] [place] TYPE: Emergency COMPLAINT: - SOB DIAGNOSES: - Allergy status to other drugs, medicaments and biological substances - Chronic obstructive pulmonary disease, unspecified - Dependence on supplemental oxygen - Heart failure, unspecified - Hypertensive heart disease with heart failure - terminal carman (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 of anticoagulants - prison (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 of oral hypoglycemic drugs - Other equipment operator intermodal yard (current) drug therapy - Personal history of other venous thrombosis and embolism - Shortness of breath - Sleep apnea, unspecified - Type 2 diabetes mellitus without complications - Unspecified atrial fibrillation 04/11/2024 15:56 [facility] [place] TYPE: Emergency DIAGNOSES: - Contusion of [...] Hypertensive heart disease with heart failure - prison (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 of anticoagulants - terminal carman (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 of oral hypoglycemic drugs - Other chest pain - Other equipment operator intermodal yard (current) drug therapy - Personal history of [...] Hypertensive heart disease with heart failure - terminal carman (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 of anticoagulants - prison (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 of oral hypoglycemic drugs - Other chest pain - Other detention (current) drug therapy - Right heart failure, unspecified - Type 2 diabetes mellitus with other diabetic ophthalmic complication - Unspecified atrial fibrillation - Unspecified glaucoma 12/01/2023 16:53 [facility] Elena WIGGINS (Elena Parker) TYPE: Emergency DIAGNOSES: - Encounter for general adult medical examination without abnormal findings - Hip Pain - poss broken hip sent by primary 07/03/2023 16:38 [facility] [place] TYPE: Emergency DIAGNOSES: - Chronic obstructive pulmonary disease, unspecified - Heart failure, unspecified - shortness of breath 06/29/2023 15:[address] [facility] [place] TYPE: Emergency COMPLAINT: - DIFFICULTY BREATHING DIAGNOSES: - Allergy status to other drugs, medicaments and biological substances - Chronic obstructive pulmonary disease, unspecified - Contusion of right hand, initial encounter - Hypertensive heart disease with heart failure - prison (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 of anticoagulants - terminal carman (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 of inhaled steroids - prison (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 of oral hypoglycemic drugs - Other chronic pain - Other equipment operator intermodal yard (current) drug therapy - Pleural effusion, not elsewhere classified - Pneumonia, unspecified organism - Restless legs syndrome - Right heart failure, unspecified - Shortness of breath - Type 2 diabetes mellitus without complications - Unspecified abdominal pain - Unspecified fall, initial encounter - Unspecified glaucoma INPATIENT VISIT TRACKING (12 MO.) No inpatient visits to display in this time frame [id number]
[2024-05-26 05:41] LABS: BASOPHILS 0.3 % (0-2); HEMATOCRIT 47.1 % (35.0-50.0); HEMOGLOBIN 15.5 g/dL (12.0-18.0); LYMPHOCYTES 13.8 % (24-44); MCH 31.5 (27-36); MCHC 32.9 g/dl (30-36); MCV 95.6 fl (81-99); MONOCYTES 5.1 % (0-12); NEUTROPHILS 77.8 % (39-80); PLATELET COUNT 208 K/uL (140-440); RBC 4.93 M/ul (4.3-5.7); RDW 14.2 (10.5-15.0)
[2024-05-26 06:03] LABS: ALBUMIN 3.6 g/dL (3.4-5.0); ALBUMIN/GLOBULIN RATIO 0.95 (1.1-2.4); ANION GAP 12.3 (7-21); BILIRUBIN, TOTAL 0.5 mg/dL (0.2-1.0); BUN/CREATININE RATIO 16.19 (6.0-28.6); CALCIUM 9.1 mg/dL (8.5-10.1); CREATININE, SERUM 1.05 mg/dL (0.55-1.02); POTASSIUM 4.3 mmol/L (3.5-5.1); PROTEIN, TOTAL 7.4 g/dL (6.4-8.2)
[2024-05-26 06:04] LABS: ALCOHOL, MEDICAL <3 ng/dL (<3)
[2024-05-26 06:14] LABS: BILIRUBIN, URINE NEGATIVE (negative); BLOOD/HGB, URINE TRACE-I (Negative); KETONE, URINE NEGATIVE (Negative); LEUK ESTERASE, URINE NEGATIVE (negative); NITRITE, URINE POSITIVE (negative)
[2024-05-26] MEDS ORDERED: Acetylcysteine 800 MG/4 ML VIAL INH ONE (06:15)
[2024-05-26] MEDS ORDERED: FUROSEMIDE 20 MG/2 ML VIAL IV ONE (06:15)
[2024-05-26] MEDS ORDERED: ALBUTEROL/IPRATROPIUM 3 ML NEB INH ONE (06:15)
[2024-05-26 06:22] LABS: WHITE BLOOD CELLS, URINE 41-50 /HPF (0-5)
[2024-05-26 06:23] LABS: BACTERIA, URINE 3+ /hpf (negative); CASTS, URINE NONE SEEN \\lpf; COLLECTION TYPE, URINE CLEAN CATCH; CRYSTALS, URINE NONE SEEN (0-1+); EPITHELIAL CELLS, URINE NONE SEEN /lpf (0-1+); REFLEX CULTURE, URINE Yes (No)
[2024-05-26] MEDS ORDERED: MORPHINE SULFATE 4 MG/ML VIAL IV ONE (06:30)
[2024-05-26] MEDS ORDERED: CEFTRIAXONE SODIUM 2 GM in SODIUM CHLORIDE 0.9% 100 ML IV ONE (06:45)
[2024-05-26] MEDS ORDERED: PREDNISONE20 MG PO (07:02)
[2024-05-26] MEDS ORDERED: CEFDINIR300 MG PO (07:02)
[2024-05-26 08:08] VITALS: BP 121/60
--- NOTE | 2024-05-26 19:55 | EKG ---
[facility] [address] [facility] [place] [address] Signed Atrial fibrillation Abnormal ECG When compared with ECG of 23-MAY-2024 07:09, Atrial fibrillation has replaced Sinus rhythm ST no longer elevated in Lateral leads Nonspecific T wave abnormality now evident in Anterior leads T wave inversion no longer evident in Lateral leads Confirmed by Gavino Hoyt MD ([id number]) on 05/26/2024 7:54:51 PM Electronically Signed By: GAVINO HOYT MD 05/26/241954 PATIENT NAME: DAVID GUTIERREZ Electrocardiogram DATE OF : 42 PHYSICIAN: GAVINO HOYT MD REPORT #: [id number] REPORT IS CONFIDENTIAL AND NOT TO BE RELEASED WITHOUT AUTHORIZATION
== END 2024-05-26 08:16 | disposition home or self-care (01) ==
LOC: ED 05:03
PROVIDERS: Family Medicine
DX: N39.0 Urinary tract infection, site not specified (principal); I11.0 Hypertensive heart disease with heart failure; I50.813 Acute on chronic right heart failure; J44.9 Chronic obstructive pulmonary disease, unspecified; M62.89 Other specified disorders of muscle; E11.9 Type 2 diabetes mellitus without complications; Z86.718 Personal history of other venous thrombosis and embolism; I48.91 Unspecified atrial fibrillation; I50.810 Right heart failure, unspecified; Z88.8 Allergy status to other drugs, medicaments and biological substances; Z79.84 Long term (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 of oral hypoglycemic drugs; Z79.01 Long term (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 of anticoagulants; Z79.899 Other long term (current) drug therapy
CPT/HCPCS: 36415; 51701; 70450; 71250; 80053; 81001; 83735; 83880; 84484; 85025; 87088; 93005; 93010; 94640; 99285-25; G0480; J0696; J1940; J2270

== ENCOUNTER 2024-07-31 17:19 | Emergency (ER) | payer MEDICARE, OTHER ==
[~2024-07-31] VITALS: Ht 160 cm; Wt 104.0 kg
[~2024-07-31 17:19] MED LIST changes: +CEFDINIR300 MG PO
--- OUTSIDE RECORDS SUMMARY | 2024-07-31 17:26 | XMS ---
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 Connie VISIT COUNT (12 MO.) 5 JIA David [address] [place] (Elena Parker) TOTAL 7 NOTE: Visits indicate total known visits. ED/UCC VISIT TRACKING (12 MO.) 07/31/2024 17:19 [facility] [place] TYPE: Emergency COMPLAINT: - WEAKNESS 05/26/2024 05:04 [facility] [place] TYPE: Emergency COMPLAINT: - BACK PAIN DIAGNOSES: - Acute on chronic right heart failure - Allergy status to other drugs, medicaments and biological substances - Chronic obstructive pulmonary disease, unspecified - Hypertensive heart disease with heart failure - computer education professor (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 of anticoagulants - computer education professor (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 of oral hypoglycemic drugs - Other lens fabricating machine tender (current) drug therapy - Other specified disorders of muscle - Personal history of other venous thrombosis and embolism - Right heart failure, unspecified - Type 2 diabetes mellitus without complications - Unspecified atrial fibrillation - Urinary tract infection, site not specified - Weakness 05/22/2024 20:42 [facility] [place] TYPE: Emergency COMPLAINT: - SOB DIAGNOSES: - Allergy status to other drugs, medicaments and biological substances - Chronic obstructive pulmonary disease, unspecified - Dependence on supplemental oxygen - Heart failure, unspecified - Hypertensive heart disease with heart failure - computer education professor (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 of anticoagulants - computer education professor (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 of oral hypoglycemic drugs - Other lens fabricating machine tender (current) drug therapy - Personal history of other venous thrombosis and embolism - Shortness of breath - Sleep apnea, unspecified - Type 2 diabetes mellitus without complications - Unspecified atrial fibrillation 04/11/2024 15:56 [facility] [place] TYPE: Emergency DIAGNOSES: - Contusion of right knee, initial encounter - Strain of muscle, fascia and tendon at neck level, initial encounter - Unspecified injury of head, initial encounter - TRAUMA 03/10/2024 02:[address] [facility] [place] TYPE: Emergency COMPLAINT: - CHEST PAIN DIAGNOSES: - Allergy status to other drugs, medicaments and biological substances - Chronic obstructive pulmonary disease, unspecified - Heart failure, unspecified - Hypertensive heart disease with heart failure - computer education professor (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 of anticoagulants - computer education professor (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 of oral hypoglycemic drugs - Other chest pain - Other lens fabricating machine tender (current) drug therapy - Personal history of other venous thrombosis and embolism - Type 2 diabetes mellitus without complications - Unspecified atrial fibrillation 12/11/2023 23:[address] [facility] TYPE: Emergency COMPLAINT: - DIFFICULT BREATHING DIAGNOSES: - Acute on chronic right heart failure - Allergy status to other drugs, medicaments and biological substances - Chronic obstructive pulmonary disease, unspecified - Glaucoma in diseases classified elsewhere - Hypertensive heart disease with heart failure - computer education professor (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 of anticoagulants - [facility] (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 of oral hypoglycemic drugs - Other chest pain - Other assisted (current) drug therapy - Right heart failure, unspecified - Type 2 diabetes mellitus with other diabetic ophthalmic complication - Unspecified atrial fibrillation - Unspecified glaucoma [facility]23 [facility]: Emergency DIAGNOSES: - Encounter for general adult medical examination without abnormal findings - Hip Pain - poss broken hip sent by primary INPATIENT VISIT TRACKING (12 MO.) No inpatient visits to display in this time frame [email or web address]
[2024-07-31 17:45] LABS: BASOPHILS 0.5 % (0.1-1.2); EOSINOPHILS 2.9 % (0.7-5.8); HEMATOCRIT 46.6 % (34.1-44.9); HEMOGLOBIN 14.8 g/dL (11.2-15.7); LYMPHOCYTES 29.4 % (19.3-51.7); MCH 31.2 PG (25.6-32.2); MCHC 31.8 g/dL (32.2-35.5); MCV 98.1 fL (79.4-94.8); MONOCYTES 10.1 % (4.7-12.5); NEUTROPHILS 56.7 % (34.0-71.1); PLATELET COUNT 178 K/uL (182-369); RBC 4.75 M/uL (3.93-5.22)
[2024-07-31 18:03] LABS: ALBUMIN 3.4 g/dL (3.4-5.0); ALBUMIN/GLOBULIN RATIO 1.1 (1.1-2.4); ANION GAP 10.6 (7-21); BILIRUBIN, TOTAL 0.8 mg/dL (0.2-1.0); BUN/CREATININE RATIO 14.48 (6.0-28.6); CALCIUM 8.8 mg/dL (8.5-10.1); CREATININE, SERUM 1.45 mg/dL (0.55-1.02); MAGNESIUM 2.2 mg/dL (1.8-2.4); POTASSIUM 3.6 mmol/L (3.5-5.1); PROTEIN, TOTAL 6.5 g/dL (6.4-8.2)
[2024-07-31] MEDS ORDERED: ROSUVASTATIN CA10 MG PO (18:03)
[2024-07-31 19:42] LABS: PH, VENOUS 7.451 (7.31-7.41)
[2024-07-31 21:04] LABS: BILIRUBIN, URINE NEGATIVE (negative); BLOOD/HGB, URINE NEGATIVE (Negative); KETONE, URINE NEGATIVE (Negative); LEUK ESTERASE, URINE NEGATIVE (negative); NITRITE, URINE POSITIVE (negative)
[2024-07-31 21:09] LABS: EPITHELIAL CELLS, URINE SQUAMOUS 1+ /lpf (0-1+); RED BLOOD CELLS, URINE 0-1 /hpf (0-5)
[2024-07-31 21:10] LABS: BACTERIA, URINE 4+ /hpf (negative); CASTS, URINE NONE SEEN \\lpf; COLLECTION TYPE, URINE CLEAN CATCH; CRYSTALS, URINE NONE SEEN (0-1+); REFLEX CULTURE, URINE Yes (No)
[2024-07-31] MEDS ORDERED: NITROFURANTOIN MONOHYD MACROCR 100 MG HOME.PACK PO ONE (21:15)
[2024-07-31] MEDS ORDERED: CEFTRIAXONE SODIUM 2 GM in SODIUM CHLORIDE 0.9% 100 ML IV ONE (21:15)
[2024-07-31 22:49] VITALS: BP 131/77
--- NOTE | 2024-08-01 13:30 | EKG ---
[facility] [address] [facility] [place] [address] Signed Atrial fibrillation Abnormal ECG When compared with ECG of 26-MAY-2024 05:55, No significant change was found Confirmed by Amita Ellis MD () on 08/01/2024 1:30:12 PM Electronically Signed By: AMITA ELLIS MD 08/01/24 1330 PATIENT NAME: DAVID GUTIERREZ Electrocardiogram DATE OF : 42 PHYSICIAN: AMITA ELLIS MD REPORT #: [id number] REPORT IS CONFIDENTIAL AND NOT TO BE RELEASED WITHOUT AUTHORIZATION
== END 2024-07-31 22:48 | disposition home or self-care (01) ==
LOC: ED 17:19
PROVIDERS: Emergency Medicine; Family Medicine
DX: N39.0 Urinary tract infection, site not specified (principal); I10 Essential (primary) hypertension; J44.9 Chronic obstructive pulmonary disease, unspecified; E11.9 Type 2 diabetes mellitus without complications; I48.91 Unspecified atrial fibrillation; Z88.1 Allergy status to other antibiotic agents; Z79.899 Other long term (current) drug therapy
CPT/HCPCS: 36415; 70450; 71045; 80053; 81001; 82140; 82803; 83735; 84484; 85025; 87077; 87088; 87186; 93005; 93010; 96365; 99285-25; J0696

== ENCOUNTER 2024-08-09 11:21 | Emergency (ER) | payer MEDICARE, OTHER ==
[~2024-08-09] VITALS: Ht 160 cm; Wt 100.0 kg
[~2024-08-09 11:21] MED LIST changes: +ROSUVASTATIN CA10 MG PO
--- OUTSIDE RECORDS SUMMARY | 2024-08-09 11:28 | XMS ---
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 ERafal VISIT COUNT (12 MO.) 6 JIA David 1 [facility] 1 [facility] [place] (Elena Parker) TOTAL 8 NOTE: Visits indicate total known visits. ED/UCC VISIT TRACKING (12 MO.) 08/09/2024 11:22 [facility] [place] TYPE: Emergency COMPLAINT: - FALL 07/31/2024 17:19 [facility] [place] TYPE: Emergency COMPLAINT: - WEAKNESS DIAGNOSES: - Allergy status to other antibiotic agents - Chronic obstructive pulmonary disease, unspecified - Essential (primary) hypertension - Other jail (current) drug therapy - Type 2 diabetes mellitus without complications - Unspecified atrial fibrillation - Urinary tract infection, site not specified - Weakness 05/26/2024 05:04 [facility] [place] TYPE: Emergency COMPLAINT: - BACK PAIN DIAGNOSES: - Acute on chronic right heart failure - Allergy status to other drugs, medicaments and biological substances - Chronic obstructive pulmonary disease, unspecified - Hypertensive heart disease with heart failure - detention (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 of anticoagulants - detention (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 of oral hypoglycemic drugs - Other extermination supervisor (current) drug therapy - Other specified disorders [...] Hypertensive heart disease with heart failure - buttermaker continuous churn (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 of anticoagulants - detention (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 of oral hypoglycemic drugs - Other extermination supervisor (current) drug therapy - Personal history of other venous thrombosis and embolism - Shortness of breath - Sleep apnea, unspecified - Type 2 diabetes mellitus without complications - Unspecified atrial fibrillation 04/11/2024 15:56 [facility] [place] TYPE: Emergency DIAGNOSES: - Contusion [...] Hypertensive heart disease with heart failure - buttermaker continuous churn (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 of anticoagulants - detention (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 of oral hypoglycemic drugs - Other chest pain - Other jail (current) drug therapy - [...] Hypertensive heart disease with heart failure - buttermaker continuous churn (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 of anticoagulants - detention (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 of oral hypoglycemic drugs - Other chest pain - Other jail (current) drug therapy - Right heart failure, unspecified - Type 2 diabetes mellitus with other diabetic ophthalmic complication - Unspecified atrial fibrillation - Unspecified glaucoma 12/01/2023 16:53 [facility] Elena WIGGINS (Elena Parker) TYPE: Emergency DIAGNOSES: - Encounter for general adult medical examination without abnormal findings - Hip Pain - poss broken hip sent by primary INPATIENT VISIT TRACKING (12 MO.) No inpatient visits to display in this time frame [id number]
[2024-08-09 11:38] LABS: BASOPHILS 0.4 % (0.1-1.2); EOSINOPHILS 2.5 % (0.7-5.8); HEMATOCRIT 48.7 % (34.1-44.9); HEMOGLOBIN 15.2 g/dL (11.2-15.7); MCH 31.3 PG (25.6-32.2); MCHC 31.2 g/dL (32.2-35.5); MCV 100.2 fL (79.4-94.8); MONOCYTES 10.4 % (4.7-12.5); NEUTROPHILS 61.4 % (34.0-71.1); PLATELET COUNT 169 K/uL (182-369); RBC 4.86 M/uL (3.93-5.22)
[2024-08-09 11:52] LABS: BILIRUBIN, URINE NEGATIVE (negative); BLOOD/HGB, URINE NEGATIVE (Negative); KETONE, URINE NEGATIVE (Negative); LEUK ESTERASE, URINE NEGATIVE (negative); NITRITE, URINE NEGATIVE (negative)
[2024-08-09 12:01] LABS: ALBUMIN 3.6 g/dL (3.4-5.0); ALBUMIN/GLOBULIN RATIO 1.03 (1.1-2.4); ALCOHOL, MEDICAL <3 ng/dL (<3); ALKALINE PHOSPHATASE 82 U/L (46-116); ALT (SGPT) 16 U/L (14-59); ANION GAP 7.1 (7-21); AST (SGOT) 17 U/L (15-37); BILIRUBIN, TOTAL 1.2 mg/dL (0.2-1.0); BUN/CREATININE RATIO 12.87 (6.0-28.6); CALCIUM 9.4 mg/dL (8.5-10.1); CARBON DIOXIDE 39 mmol/L (21-32); CHLORIDE 103 mmol/L (98-107); CREATININE, SERUM 1.01 mg/dL (0.55-1.02); GLOMERULAR FILTRATION RATE,EST 55 mL/min (>60); MAGNESIUM 2.4 mg/dL (1.8-2.4); POTASSIUM 4.1 mmol/L (3.5-5.1); PROTEIN, TOTAL 7.1 g/dL (6.4-8.2); UREA NITROGEN 13 mg/dL (7-18)
[2024-08-09 17:30] VITALS: BP 128/65
== END 2024-08-09 18:00 | disposition left against medical advice (07) ==
LOC: ED 11:21
PROVIDERS: Family Medicine
DX: S76.011A Strain of muscle, fascia and tendon of right hip, initial encounter (principal); R53.1 Weakness; R26.89 Other abnormalities of gait and mobility; Z53.29 Procedure and treatment not carried out because of patient's decision for other reasons; I11.0 Hypertensive heart disease with heart failure; I50.9 Heart failure, unspecified; E11.9 Type 2 diabetes mellitus without complications; Z90.711 Acquired absence of uterus with remaining cervical stump; Z90.89 Acquired absence of other organs; Z90.13 Acquired absence of bilateral breasts and nipples; Z88.8 Allergy status to other drugs, medicaments and biological substances; W18.30XA Fall on same level, unspecified, initial encounter
CPT/HCPCS: 36415; 51702; 70450; 72125; 73502; 80053; 81003; 82803; 83735; 85025; 97162; 99284-25; G0480

== ENCOUNTER 2024-08-21 11:24 | Emergency (ER) | payer MEDICARE, OTHER ==
[~2024-08-21] VITALS: Ht 160 cm; Wt 96.7 kg
--- OUTSIDE RECORDS SUMMARY | 2024-08-21 11:30 | XMS ---
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 Current PHONE: [phone] MAGGIE HAYES [facility] Current PHONE: [phone] Antonieta has no Care Guidelines for this patient. ERafal VISIT COUNT (12 MO.) 7 JIA David [address] [place] (Elena Parker) TOTAL 10 NOTE: Visits indicate total known visits. ED/UCC VISIT TRACKING (12 MO.) 08/21/2024 11:[address] [facility] [place] TYPE: Emergency COMPLAINT: - HEADACHE 08/13/2024 15:06 [facility] DIAGNOSES: - Acute kidney failure, unspecified - Other specified abnormal findings of blood chemistry - Personal history of other diseases of the circulatory system - Sepsis, unspecified organism - Urinary tract infection, site not specified - chest pain 08/09/2024 11:[address] [facility] [place] TYPE: Emergency COMPLAINT: - FALL DIAGNOSES: - Acquired absence of bilateral breasts and nipples - Acquired absence of other organs - Acquired absence of uterus with remaining cervical stump - Allergy status to other drugs, medicaments and biological substances - Encounter for examination and observation following other accident - Fall on same level, unspecified, initial encounter - Heart failure, unspecified - Hypertensive heart disease with heart failure - Other abnormalities of gait and mobility - Procedure and treatment not carried out because of patient's decision for other reasons - Strain of muscle, fascia and tendon of right hip, initial encounter - Type 2 diabetes mellitus without complications - Weakness 07/31/2024 17:19 [facility] [place] TYPE: Emergency COMPLAINT: - WEAKNESS DIAGNOSES: - Allergy status to other antibiotic agents - Chronic obstructive pulmonary disease, unspecified - Essential (primary) hypertension - Other buttermaker continuous churn (current) drug therapy - Type 2 diabetes [...] heart disease with heart failure - senior care (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 of anticoagulants - senior care (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 of oral hypoglycemic drugs - Other long-term (current) drug therapy - Other specified disorders [...] continuous churn (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 of anticoagulants - senior care (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 of oral hypoglycemic drugs - Other long-term (current) drug therapy - Personal history of other venous thrombosis and embolism - Shortness of breath - Sleep apnea, unspecified - Type 2 diabetes mellitus without complications - Unspecified atrial fibrillation 04/11/2024 15:56 [facility] [place] TYPE: Emergency DIAGNOSES: - Contusion [...] heart disease with heart failure - senior care (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 of anticoagulants - buttermaker continuous churn (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 of oral hypoglycemic drugs - Other chest pain - Other buttermaker continuous churn (current) drug therapy - Personal history of [...] heart disease with heart failure - senior care (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 of anticoagulants - senior care (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 of oral hypoglycemic drugs - Other chest pain - Other long-term (current) drug therapy - Right heart failure, unspecified - Type 2 diabetes mellitus with other diabetic ophthalmic complication - Unspecified atrial fibrillation - Unspecified glaucoma 12/01/2023 16:53 [facility] Elena WIGGINS ([place]) TYPE: Emergency DIAGNOSES: - Encounter for general adult medical examination without abnormal findings - Hip Pain - poss broken hip sent by primary INPATIENT VISIT TRACKING (12 MO.) 08/14/2024 00:07 [facility] TYPE: Medical Surgical DIAGNOSES: - Acute cystitis without hematuria - Chronic obstructive pulmonary disease, unspecified - Sepsis, unspecified organism - Severe sepsis without septic shock [id number]
[2024-08-21] MEDS ORDERED: CEFPODOXIME PR200 MG PO (11:40)
[2024-08-21] MEDS ORDERED: SODIUM CHLORIDE 0.9% 1,000 ML IV ONE (11:45)
[2024-08-21 12:01] LABS: BASOPHILS 0.7 % (0.1-1.2); EOSINOPHILS 3.1 % (0.7-5.8); LYMPHOCYTES 35.9 % (19.3-51.7); MCH 30.8 PG (25.6-32.2); MCHC 31.7 g/dL (32.2-35.5); MCV 97.0 fL (79.4-94.8); MONOCYTES 7.4 % (4.7-12.5); NEUTROPHILS 52.6 % (34.0-71.1); RBC 4.71 M/uL (3.93-5.22)
[2024-08-21 12:19] LABS: ALT (SGPT) 17.0 U/L (14-59); AST (SGOT) 14.0 U/L (15-37); GLOMERULAR FILTRATION RATE,EST 44.0 mL/min (>60); PROTEIN, TOTAL 6.5 g/dL (6.4-8.2); UREA NITROGEN 16.0 mg/dL (7-18)
[2024-08-21 14:06] VITALS: BP 138/73
--- NOTE | 2024-08-23 10:29 | EKG ---
[facility] [address] [facility] [place] [address] Signed Atrial fibrillation T wave abnormality, consider anterior ischemia Prolonged QT Abnormal ECG When compared with ECG of 31-JUL-2024 17:40, Inverted T waves have replaced nonspecific T wave abnormality in Inferior leads T wave inversion now evident in Anterior leads Confirmed by Gavino Hoyt MD ([id number]) on 08/23/2024 10:29:40 AM Electronically Signed By: GAVINO HOYT MD 08/23/24 1029 PATIENT NAME: DAVID GUTIERREZ Electrocardiogram DATE OF : 42 PHYSICIAN: GAVINO HOYT MD REPORT #: [id number] REPORT IS CONFIDENTIAL AND NOT TO BE RELEASED WITHOUT AUTHORIZATION
== END 2024-08-21 14:05 | disposition home or self-care (01) ==
LOC: ED 11:24
PROVIDERS: Emergency Medicine
DX: R53.1 Weakness (principal); J44.9 Chronic obstructive pulmonary disease, unspecified; E11.9 Type 2 diabetes mellitus without complications; I48.91 Unspecified atrial fibrillation; I11.0 Hypertensive heart disease with heart failure; I50.810 Right heart failure, unspecified; Z88.8 Allergy status to other drugs, medicaments and biological substances; Z79.84 Long term (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 of oral hypoglycemic drugs; Z79.899 Other long term (current) drug therapy
CPT/HCPCS: 36415; 80053; 84484; 85025; 93005; 93010; 99285; J7030

== ENCOUNTER 2024-09-13 16:18 | Emergency (ER) | payer MEDICARE, OTHER ==
[~2024-09-13] VITALS: Ht 160 cm; Wt 99.5 kg
[~2024-09-13 16:18] MED LIST changes: +CEFPODOXIME PR200 MG PO
--- OUTSIDE RECORDS SUMMARY | 2024-09-13 16:25 | XMS ---
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 - 2 Visits in 30 Days CARE PROVIDERS MARIELA GARCIA Family Medicine 11/29/2019-Current PHONE: [phone] EVELIO RAYGOZA [facility] Current PHONE: [phone] MAGGIE HAYES [facility] Current PHONE: [phone] nAtonieta has no Care Guidelines for this patient. ERafal VISIT COUNT (12 MO.) 8 JIA David [address] [place] (Elena Parker) TOTAL 11 NOTE: Visits indicate total known visits. ED/UCC VISIT TRACKING (12 MO.) 09/13/2024 16:19 [facility] [place] TYPE: Emergency COMPLAINT: - WEAKNESS 08/21/2024 11:24 [facility] [place] TYPE: Emergency COMPLAINT: - HEADACHE DIAGNOSES: - Allergy status to other drugs, medicaments and biological substances - Chronic obstructive pulmonary disease, unspecified - Headache, unspecified - Hypertensive heart disease with heart failure - senior living (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 of oral hypoglycemic drugs - Other termite treater (current) drug therapy - Right heart failure, unspecified - Type 2 diabetes mellitus without complications - Unspecified atrial fibrillation - Weakness 08/13/2024 15:06 [facility] [place] TYPE: Emergency DIAGNOSES: - Acute kidney failure, unspecified - Other specified abnormal findings of blood chemistry - Personal history of other diseases of the circulatory system - Sepsis, unspecified organism - Urinary tract infection, site not specified - chest pain 08/09/2024 11:22 [facility] [place] TYPE: Emergency COMPLAINT: - FALL DIAGNOSES: [...] unspecified - Essential (primary) hypertension - Other termite treater (current) drug therapy - Type 2 diabetes [...] Hypertensive heart disease with heart failure - 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 faculty for medical 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 (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 of anticoagulants - senior living (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 of oral hypoglycemic drugs - Other long-term (current) drug therapy - Personal history of other venous thrombosis and embolism - Shortness of breath - Sleep apnea, unspecified - Type 2 diabetes mellitus without complications - Unspecified atrial fibrillation 04/11/2024 15:56 [facility] [place] TYPE: Emergency DIAGNOSES: - Contusion [...] Hypertensive heart disease with heart failure - 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 - adjunct faculty for medical terminology (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 of oral hypoglycemic drugs - Other chest pain - Other long-term (current) drug therapy - Right heart failure, unspecified - Type 2 diabetes mellitus with other diabetic ophthalmic complication - Unspecified atrial fibrillation - Unspecified glaucoma 12/01/2023 16:53 [facility] Elena WIGGINS (Elena Parker) TYPE: Emergency DIAGNOSES: - Encounter for general adult medical examination without abnormal findings - Hip Pain - poss broken hip sent by primary INPATIENT VISIT TRACKING (12 MO.) 08/14/2024 00:07 [facility] Elena WIGGINS (Elena Parker) TYPE: Medical Surgical DIAGNOSES: - Acute cystitis without hematuria - Chronic obstructive pulmonary disease, unspecified - Sepsis, unspecified organism - Severe sepsis without septic shock [email or web address]
[2024-09-13 16:39] LABS: BASOPHILS 0.4 % (0.1-1.2); EOSINOPHILS 2.5 % (0.7-5.8); LYMPHOCYTES 36.4 % (19.3-51.7); MCH 31.1 PG (25.6-32.2); MCHC 31.7 g/dL (32.2-35.5); MCV 98.0 fL (79.4-94.8); MONOCYTES 9.0 % (4.7-12.5); NEUTROPHILS 51.3 % (34.0-71.1); RBC 4.54 M/uL (3.93-5.22)
[2024-09-13] MEDS ORDERED: SODIUM CHLORIDE 0.9% 1,000 ML IV ONE (16:45)
[2024-09-13 16:58] LABS: ALT (SGPT) 17.0 U/L (14-59); AST (SGOT) 12.0 U/L (15-37); GLOMERULAR FILTRATION RATE,EST 46.0 mL/min (>60); PROTEIN, TOTAL 6.4 g/dL (6.4-8.2); UREA NITROGEN 26.0 mg/dL (7-18)
[2024-09-13 18:35] LABS: BLOOD/HGB, URINE NEGATIVE (Negative); KETONE, URINE NEGATIVE (Negative); LEUK ESTERASE, URINE NEGATIVE (negative); NITRITE, URINE NEGATIVE (negative)
[2024-09-13 19:01] VITALS: BP 139/98
== END 2024-09-13 18:58 | disposition home or self-care (01) ==
LOC: ED 16:18
PROVIDERS: Emergency Medicine
DX: I95.1 Orthostatic hypotension (principal); J44.9 Chronic obstructive pulmonary disease, unspecified; I11.0 Hypertensive heart disease with heart failure; E11.9 Type 2 diabetes mellitus without complications; I48.91 Unspecified atrial fibrillation; Z90.89 Acquired absence of other organs; Z79.2 Long term (current) use of antibiotics; Z79.899 Other long term (current) drug therapy
CPT/HCPCS: 36415; 71045; 80053; 81003; 83605; 83880; 84484; 85025; 99285-25; J7030

== ENCOUNTER 2025-01-05 18:10 | Emergency (ER) | payer MEDICARE, OTHER ==
[~2025-01-05] VITALS: Ht 160 cm; Wt 105.0 kg
--- OUTSIDE RECORDS SUMMARY | 2025-01-05 18:11 | XMS ---
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 E.D. VISIT COUNT (12 MO.) [address] [facility] TOTAL 11 NOTE: Visits indicate total known visits. ED/UCC VISIT TRACKING (12 MO.) 01/05/2025 18:11 [facility] [place] TYPE: Emergency COMPLAINT: - CHEST PAIN 11/01/2024 17:55 [facility] [place] TYPE: Emergency DIAGNOSES: - Chest pain, unspecified - Heart failure, unspecified - Chest Pain 09/13/2024 16:19 [facility] [place] TYPE: Emergency COMPLAINT: - WEAKNESS DIAGNOSES: - Acquired absence of other organs - Chronic obstructive pulmonary disease, unspecified - Dizziness and giddiness - Hypertensive heart disease with heart failure - senior care (current) use of antibiotics - Orthostatic hypotension - Other alf (current) drug therapy - Type 2 diabetes mellitus without complications - Unspecified atrial fibrillation 08/21/2024 11:24 [facility] [place] TYPE: Emergency COMPLAINT: - HEADACHE DIAGNOSES: - Allergy status to other drugs, medicaments and biological substances - Chronic obstructive pulmonary disease, unspecified - Headache, unspecified - Hypertensive heart disease with heart failure - terminal supervisor (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 of oral hypoglycemic drugs - Other alf (current) drug therapy - Right heart failure, unspecified - Type 2 diabetes mellitus without complications - Unspecified atrial fibrillation - Weakness 08/13/2024 15:06 [facility] [place] TYPE: Emergency DIAGNOSES: - Acute kidney [...] unspecified - Essential (primary) hypertension - Other long term care social worker (current) drug therapy - Type 2 diabetes [...] heart disease with heart failure - terminal supervisor (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 of anticoagulants - terminal supervisor (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 of oral hypoglycemic drugs - Other long term care social worker (current) drug therapy - Other specified disorders [...] heart disease with heart failure - terminal supervisor (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 of anticoagulants - senior care (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 of oral hypoglycemic drugs - Other long term care social worker (current) drug therapy - Personal history of other venous thrombosis and embolism - Shortness of breath - Sleep apnea, unspecified - Type 2 diabetes mellitus without complications - Unspecified atrial fibrillation 04/11/2024 15:56 [facility] [place] TYPE: Emergency DIAGNOSES: - Contusion of [...] senior care (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 of anticoagulants - terminal supervisor (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 of oral hypoglycemic drugs - Other chest pain - Other long term care social worker (current) drug therapy - Personal history of other venous thrombosis and embolism - Type 2 diabetes mellitus without complications - Unspecified atrial fibrillation INPATIENT VISIT TRACKING (12 MO.) 11/01/2024 17:55 [facility] [place] TYPE: Medical Surgical DIAGNOSES: - Chest pain, unspecified - Chronic kidney disease, stage 3a - Heart failure, unspecified - Hypoxemia - Obstructive sleep apnea (adult) (pediatric) - Permanent atrial fibrillation - Type 2 diabetes mellitus without complications 08/14/2024 00:07 [facility] Elena WIGGINS (Elena Parker) TYPE: Medical Surgical DIAGNOSES: - Acute cystitis without hematuria - Chronic obstructive pulmonary disease, unspecified - Sepsis, unspecified organism - Severe sepsis without septic shock [email or web address]
[2025-01-05 18:30] LABS: BASOPHILS 0.5 % (0.1-1.2); EOSINOPHILS 2.2 % (0.7-5.8); LYMPHOCYTES 28.2 % (19.3-51.7); MCH 31.3 PG (25.6-32.2); MCHC 31.6 g/dL (32.2-35.5); MCV 99.2 fL (79.4-94.8); MONOCYTES 7.7 % (4.7-12.5); NEUTROPHILS 60.9 % (34.0-71.1); RBC 4.95 M/uL (3.93-5.22)
[2025-01-05] MEDS ORDERED: NITROGLYCERIN 0.4 MG SUBL SL PRN (18:30)
[2025-01-05] MEDS ORDERED: ASPIRIN 81 MG CHEW PO ONE (18:30)
[2025-01-05 18:49] LABS: INR 1.41 (0.80-1.30); PROTIME 16.3 Sec (11.2-14.2)
[2025-01-05 18:57] LABS: ALT (SGPT) 14.0 U/L (14-59); AST (SGOT) 11.0 U/L (15-37); GLOMERULAR FILTRATION RATE,EST 55.0 mL/min (>60); PROTEIN, TOTAL 6.7 g/dL (6.4-8.2); UREA NITROGEN 22.0 mg/dL (7-18)
[2025-01-05] MEDS ORDERED: FUROSEMIDE 100 MG/10 ML VIAL IV ONE (19:15)
[2025-01-05] MEDS ORDERED: ALBUTEROL/IPRATROPIUM 3 ML NEB INH ONE (19:15)
[2025-01-05 20:26] LABS: BLOOD/HGB, URINE NEGATIVE (Negative); KETONE, URINE NEGATIVE (Negative); LEUK ESTERASE, URINE NEGATIVE (negative); NITRITE, URINE POSITIVE (negative)
[2025-01-05 20:38] LABS: BACTERIA, URINE 3+ /hpf (negative); CASTS, URINE NONE SEEN \\lpf; CRYSTALS, URINE NONE SEEN (0-1+); EPITHELIAL CELLS, URINE SQUAMOUS 1+ /lpf (0-1+); REFLEX CULTURE, URINE Yes (No)
[2025-01-05] MEDS ORDERED: CEPHALEXIN500 M1 PO (22:06)
[2025-01-05] MEDS ORDERED: PRAMIPEXOLE DIHYDROCHLORIDE 1 MG TAB PO ONE (22:15)
[2025-01-05] MEDS ORDERED: CEPHALEXIN MONOHYDRATE 500 MG HOME.PACK PO ONE (22:15)
[2025-01-05 22:34] VITALS: BP 118/78
--- NOTE | 2025-01-08 18:07 | EKG ---
[facility] [address] [place] [address] Signed Atrial fibrillation Abnormal ECG When compared with ECG of 21-AUG-2024 11:52, T wave inversion no longer evident in Inferior leads T wave inversion no longer evident in Anterior leads QT has shortened Confirmed by Amita Ellis MD () on 01/08/2025 6:07:01 PM Electronically Signed By: AMITA ELLIS MD 01/08/25 1807 PATIENT NAME: DAVID GTUIERREZ Electrocardiogram DATE OF : 42 PHYSICIAN: AMITA ELLIS MD REPORT #: [id number] REPORT IS CONFIDENTIAL AND NOT TO BE RELEASED WITHOUT AUTHORIZATION
== END 2025-01-05 22:30 | disposition home or self-care (01) ==
LOC: ED 18:10
PROVIDERS: Emergency Medicine; Internal Medicine
DX: I11.0 Hypertensive heart disease with heart failure (principal); I50.9 Heart failure, unspecified; L03.115 Cellulitis of right lower limb; N39.0 Urinary tract infection, site not specified; J44.9 Chronic obstructive pulmonary disease, unspecified; E11.9 Type 2 diabetes mellitus without complications; Z79.84 Long term (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 of oral hypoglycemic drugs; Z79.899 Other long term (current) drug therapy; Z88.8 Allergy status to other drugs, medicaments and biological substances
CPT/HCPCS: 36415; 71045; 80053; 81001; 83735; 83880; 84484; 85025; 85379; 85610; 87088; 93005; 93010; 94640; 96374; 96375; 99285-25; A9270; J1938; J2919

== ENCOUNTER 2025-01-20 16:08 | Emergency (ER) | payer MEDICARE, OTHER ==
[~2025-01-20] VITALS: Ht 160 cm; Wt 105.0 kg
--- NOTE | ~2025-01-20 | EKG ---
[facility] [address] [place], [place] [address] Draft EK completed, results pending confirmation PATIENT NAME: DAVID GUTIERREZ TYLER Electrocardiogram DATE OF : 42 PHYSICIAN: PRELIMINARY REPORT #: [id number] REPORT IS CONFIDENTIAL AND NOT TO BE RELEASED WITHOUT AUTHORIZATION
[~2025-01-20 16:08] MED LIST changes: +CEPHALEXIN500 M1 PO
--- OUTSIDE RECORDS SUMMARY | 2025-01-20 16:09 | XMS ---
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 E.D. VISIT COUNT (12 MO.) [address] [facility] TOTAL 12 NOTE: Visits indicate total known visits. 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 - Other [facility] (current) drug therapy - Type 2 diabetes mellitus without complications - Urinary tract infection, site not specified 11/01/2024 17:55 [facility] [place] TYPE: Emergency DIAGNOSES: - Chest pain, unspecified - Heart failure, unspecified - Chest Pain 09/13/2024 16:19 [facility] [place] TYPE: Emergency COMPLAINT: - WEAKNESS DIAGNOSES: - Acquired absence of other organs - Chronic obstructive pulmonary disease, unspecified - Dizziness and giddiness - Hypertensive heart disease with heart failure - skilled nursing (current) use of antibiotics - Orthostatic hypotension - 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 - Type 2 diabetes mellitus without complications - Unspecified atrial fibrillation 08/21/2024 11:24 [facility] [place] TYPE: Emergency COMPLAINT: - HEADACHE DIAGNOSES: - Allergy status to other drugs, medicaments and biological substances - Chronic obstructive pulmonary disease, unspecified - Headache, unspecified - Hypertensive heart disease with heart failure - skilled nursing (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 of oral hypoglycemic drugs - Other mcfp (current) drug therapy - Right heart failure, unspecified - Type 2 diabetes mellitus without complications - Unspecified atrial fibrillation - Weakness 08/13/2024 15:06 [facility] [place] TYPE: Emergency DIAGNOSES: - Acute [...] without complications - Weakness 07/31/2024 17:19 [facility] [place] TYPE: Emergency COMPLAINT: - WEAKNESS DIAGNOSES: - Allergy status to other antibiotic agents - Chronic obstructive pulmonary disease, unspecified - Essential (primary) hypertension - 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 - Type 2 diabetes [...] Hypertensive heart disease with heart failure - 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 - 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 - Other [facility]p (current) drug therapy - Other specified disorders [...] of oral hypoglycemic drugs - 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 - Personal history of other venous thrombosis and embolism - Shortness of breath - Sleep apnea, unspecified - Type 2 diabetes mellitus without complications - Unspecified atrial fibrillation 04/11/2024 15:56 [facility] [place] TYPE: Emergency DIAGNOSES: - Contusion [...] skilled nursing (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 of anticoagulants - 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 - Other chest pain - 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 - Personal history of other venous thrombosis and embolism - Type 2 diabetes mellitus without complications - Unspecified atrial fibrillation INPATIENT VISIT TRACKING (12 MO.) 11/01/2024 17:55 [facility] [place] TYPE: Medical Surgical DIAGNOSES: - Chest pain, unspecified - Chronic kidney disease, stage 3a - Heart failure, unspecified - Hypoxemia - Obstructive sleep apnea (adult) (pediatric) - Permanent atrial fibrillation - Type 2 diabetes mellitus without complications 08/14/2024 00:07 [facility] Elena WIGGINS ([place]) TYPE: Medical Surgical DIAGNOSES: - Acute cystitis without hematuria - Chronic obstructive pulmonary disease, unspecified - Sepsis, unspecified organism - Severe sepsis without septic shock [email or web address]
[2025-01-20] MEDS ORDERED: ASPIRIN 81 MG CHEW PO ONE (16:15)
[2025-01-20] MEDS ORDERED: NITROGLYCERIN 0.4 MG SUBL SL PRN (16:15)
[2025-01-20] MEDS ORDERED: ALBUTEROL/IPRATROPIUM 3 ML NEB INH ONE (16:45)
[2025-01-20 16:54] LABS: BASOPHILS 0.2 % (0.1-1.2); EOSINOPHILS 2.2 % (0.7-5.8); LYMPHOCYTES 21.9 % (19.3-51.7); MCH 30.9 PG (25.6-32.2); MCHC 30.5 g/dL (32.2-35.5); MCV 101.3 fL (79.4-94.8); MONOCYTES 8.2 % (4.7-12.5); NEUTROPHILS 66.9 % (34.0-71.1); RBC 4.63 M/uL (3.93-5.22)
[2025-01-20 17:04] LABS: INR 1.0 (0.80-1.30); PROTIME 12.8 Sec (11.2-14.2)
[2025-01-20 17:18] LABS: ALT (SGPT) 19.0 U/L (14-59); AST (SGOT) 13.0 U/L (15-37); GLOMERULAR FILTRATION RATE,EST 59.0 mL/min (>60); PROTEIN, TOTAL 7.0 g/dL (6.4-8.2); UREA NITROGEN 11.0 mg/dL (7-18)
[2025-01-20] MEDS ORDERED: FUROSEMIDE 40 MG/4 ML VIAL IV ONE (18:00)
[2025-01-20 19:11] VITALS: BP 146/72
[2025-01-20] MEDS ORDERED: LIDOCAINE 5% OINTMENT TUBE TOP ONE (19:15)
[2025-01-20] MEDS ORDERED: ALBUTEROL SULFATE 0.083% 3 ML VIAL INH ONE (19:30)
== END 2025-01-20 19:58 | disposition home or self-care (01) ==
LOC: ED 16:08
PROVIDERS: Emergency Medicine
DX: I11.0 Hypertensive heart disease with heart failure (principal); I50.9 Heart failure, unspecified; J44.9 Chronic obstructive pulmonary disease, unspecified; E11.9 Type 2 diabetes mellitus without complications; I48.91 Unspecified atrial fibrillation; Z79.899 Other long term (current) drug therapy; Z79.84 Long term (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 of oral hypoglycemic drugs; Z88.5 Allergy status to narcotic agent; Z88.8 Allergy status to other drugs, medicaments and biological substances
CPT/HCPCS: 36415; 71045; 80053; 83735; 83880; 84484; 85025; 85610; 93005; 93010; 94640; 96374; 99285-25; A9270; J1938